=== PATIENT | female | born 1950 | race Caucasian/White ===

== ENCOUNTER 2019-09-24 13:09 | Outpatient (CLI) | payer MEDICARE, BC, SELFPAY ==
[2019-09-24 14:28] LABS: Vitamin D 25 Hydroxy 51.4 ng/mL
== END 2019-09-24 13:10 | disposition home or self-care (01) ==
LOC: ANHLAB 13:11
PROVIDERS: PCP Internal Medicine; Visit Provider Obstetrics & Gynecology Gynecology
DX: E55.9 Vitamin D deficiency, unspecified (principal)
CPT/HCPCS: 36415; 82306

== ENCOUNTER 2020-02-29 12:55 | Emergency (ER) | payer MEDICARE, BC, SELFPAY ==
--- NOTE | ~2020-02-29 | XR_ITS ---
XR forearm RT 2V DATE: 02/29/2020 13:17 INDICATION: Forearm pain following fall today TECHNIQUE: AP and lateral views COMPARISON: None FINDINGS: Diffuse osteopenia. No fracture or dislocation of the forearm. No elbow joint effusion. IMPRESSION: Osteopenia Reviewed, dictated and finalized at location A. IMPRESSION: Osteopenia
[2020-02-29 13:09] VITALS: BP 166/74; PULSE 70; RESP 16; TEMP 36.9; O2SAT 98
--- NOTE | 2020-02-29 13:09 | ED.UPPEXIN ---
HPI - Extremity Injury (Upper) General Chief Complaint: Extremity Injury, Upper Stated Complaint: fell left arm pain Time Seen by Provider: 02/29/20 13:12 Source: patient and RN notes reviewed History of Present Illness HPI narrative: Patient is a 70-year-old female who presents the urgent care with complaints of left lower arm pain due to fall. Patient states that she fell today while trying to clean off some concrete. Patient denies of any loss of consciousness. Reports of a bruise near the elbow but is mainly reporting of pain to the wrist. Patient has not taken anything for pain prior to arrival. States the injury happened at approximately 7 AM today. No other acute complaints or injuries. No acute distress noted. Patient read the plan of care. Related Data Home Medications Medication Instructions Recorded Confirmed aspirin 81 mg tablet,delayed 81 mg PO DAILY 07/14/19 07/21/19 release carvedilol 12.5 mg tablet 12.5 mg PO BID tablet 07/14/19 07/21/19 cranberry 500 mg capsule 500 mg PO DAILY cap 07/14/19 07/21/19 montelukast 10 mg tablet 10 mg PO DAILY 07/14/19 07/21/19 cholecalciferol (vitamin D3) 50 2,000 unit PO DAILY 07/21/19 07/21/19 mcg (2,000 unit) tablet beclomethasone dipropionate [Qvar INHALATION 02/29/20 RediHaler] magnesium oxide 02/29/20 Allergies Allergy/AdvReac Type Severity Reaction Status Date / Time No Known Allergies Allergy Verified 02/17/20 10:05 Review of Systems Review of Systems: Narrative: CONSTITUTIONAL: Denies fever, chills, or sweats. EYES: Denies visual changes, redness, or discharge. ENT: Denies rhinorrhea, congestion, sore throat, or otalgia. CARDIOVASCULAR: Denies chest pain, palpitations, or edema. RESPIRATORY: Denies cough or dyspnea. GASTROINTESTINAL: Denies abdominal pain, nausea, vomiting, or diarrhea. GENITOURINARY: Denies dysuria or hematuria. SKIN: Denies rash or itching. MUSCULOSKELETAL: Reports of left lower arm/wrist pain. NEUROLOGIC: Denies headache, numbness, or weakness. All other systems reviewed are negative, except as documented in HPI. [facility] Social History Social History Smoking status: Never smoker Second hand tobacco smoke exposure: No Alcohol intake: current Drinks per week: 5 Substance use: never Comments At the time of my signature, I reviewed and agree with the nursing past medical, surgical, social, and family history. There is no relevant family history pertinent to the patient complaint. Exam Narrative: Exam Narrative: GENERAL: This is a well-nourished, well-developed patient, in no apparent distress. HEAD: normocephalic, atraumatic. EYES: PERRL. Sclera clear/white. Vision is grossly intact. EARS: External ears normal NOSE: External nose normal with no obvious nasal discharge, nares without redness, no rhinorrhea. THROAT: Mucous membranes moist NECK: Neck supple SKIN: warm, intact with no suspicious lesions or rash, good texture and turgor. NEURO: awake, alert, and oriented to person, place and time. There were no obvious focal neurologic abnormalities. EXTREMITIES: Mild edema noted to dorsal wrist with mild to moderate pain with range of motion activity. No obvious deformity noted. Positive strong right radial pulse with capillary refill less than 2 seconds. Course Vital Signs Vital signs: Vital Signs Temperature 98.4 F 02/29/20 13:09 Pulse Rate 70 02/29/20 13:09 Respiratory Rate 16 02/29/20 13:09 Blood Pressure 166/74 H 02/29/20 13:09 Pulse Oximetry 98 02/29/20 13:09 Temperature 98.4 F 02/29/20 13:09 Pulse Rate 70 02/29/20 13:09 Respiratory Rate 16 02/29/20 13:09 Blood Pressure 166/74 H 02/29/20 13:09 Pulse Oximetry 98 02/29/20 13:09 Reviewed?patient is informed that they may have pre-hypertension or hypertension based on a blood pressure reading in the department. I recommend the patient call the primary care provider listed
--- NOTE | 2020-02-29 13:16 | PC.NURSE ---
in xray at 1311 in br 1316
== END 2020-02-29 13:45 | disposition home or self-care (01) ==
PROVIDERS: Emergency Provider Nurse Practitioner Family; PCP Internal Medicine
DX: M25.531 Pain in right wrist (principal); Z79.82 Long term (current) use of aspirin; E78.00 Pure hypercholesterolemia, unspecified; I10 Essential (primary) hypertension; Z85.43 Personal history of malignant neoplasm of ovary; Z92.21 Personal history of antineoplastic chemotherapy
CPT/HCPCS: 73090; 99213; G0463

== ENCOUNTER 2020-03-01 07:25 | Outpatient (CLI) | payer MEDICARE, BC, SELFPAY ==
--- NOTE | ~2020-03-01 | MM_ITS ---
EXAMINATION: MM screening aishwarya BI w dionne HISTORY: Screening TECHNIQUE: Craniocaudal and mediolateral oblique 3-D tomosynthesis images were obtained and synthetic 2-D images were generated. CAD analysis was submitted and interpreted. COMPARISON: Comparison to multiple prior studies sequentially, with oldest reviewed study dated 12/16. BREAST PARENCHYMAL COMPOSITION: There are scattered areas of fibroglandular density. FINDINGS: There is no evidence of suspicious mass, calcification, or architectural distortion to sugg est malignancy in either breast. There has been no suspicious interval change. IMPRESSION: 1. No mammographic evidence of malignancy. 2. Recommend routine screening mammography in one year. BI-RADS Category 1: Negative Reviewed, dictated and finalized at location A.
--- NOTE | ~2020-03-01 | DEXA_ITS ---
Bone Density Report Name: Gayle Ventura Age: 70 Sex: Female Ethnicity: White Date of : 1950 Indication: postmenopausal; height loss; prior fracture; cancer; hysterectomy; Referring Provider: LITA GAINES Study: Bone densitometry was performed. Exam Date: March 01, 2020 Accession number: [id number] Bone Density: Region BMD T-score Z-score Classification AP Spine (L1-L4) 1.043 0.0 2.1 Normal Femoral Neck (Left) 0.814 -0.3 1.5 Normal Total Hip (Left) 0.946 0.0 1.6 Normal Total Hip Bilateral Avg 0.941 -0.1 1.6 Normal Femoral Neck (Right) 0.761 -0.8 1.1 Normal Total Hip (Right) 0.936 -0.1 1.5 Normal World Health Organization criteria for BMD impression classify patients as: Normal (T-score at or above -1.0), Osteopenia (T-score between -1.0 and -2.5), or Osteoporosis (T-score at or below -2.5). 10-year Fracture Risk: FRAX not reported because: All T-scores for Spine Total, Hip Total, Femoral Neck at or above -1.0 Previous Exams: Region Exam Age BMD T-score BMD Change BMD Change Date g/cm2 vs Baseline vs Previous AP Spine(L1-L4) 03/01/2020 70 1.043 0.0 0.025(2.5%)# 0.033(3.3%)* 02/27/2017 67 1.009 -0.3 -0.008(-0.8%)# -0.032(-3.1%)* 01/05/2015 64 1.042 0.0 0.024(2.4%)# 0.016(1.6%)# 05/05/2012 62 1.025 -0.2 0.008(0.7%)# 0.008(0.7%)# 02/09/2009 58 1.018 -0.3 Total Hip(Left) 03/01/2020 70 0.946 0.0 -0.096(-9.2%)# 0.004(0.5%) 02/27/2017 67 0.941 0.0 -0.100(-9.6%)# -0.012(-1.2%) 01/05/2015 64 0.953 0.1 -0.089(-8.5%)# -0.085(-8.2%)# 05/05/2012 62 1.038 0.8 -0.003(-0.3%)# -0.003(-0.3%)# 02/09/2009 58 1.042 0.8 Total Hip(Right) 03/01/2020 70 0.936 -0.1 -0.046(-4.7%)# -0.026(-2.7%) 02/27/2017 67 0.962 0.2 -0.020(-2.0%)# 0.004(0.4%) 01/05/2015 64 0.958 0.1 -0.024(-2.4%)# -0.027(-2.7%)# 05/05/2012 62 0.985 0.4 0.003(0.3%)# 0.003(0.3%)# 02/09/2009 58 0.982 0.3 *Denotes significance at 95% confidence level, LSC for AP Spine = 0.022 g/cm2, LSC for Total Hip = 0.027 g/cm2 Clinical Information Provided by Patient: Has had a low trauma fracture Has used the following medications: Vitamin D Has the following medical conditions: Cancer, Hysterectomy Patient maximum height was 66 Menopause Age: 40 No regular weight bearing exercise Does not regularly consume dairy products Drinks caffeinated beverages Onset of menses at age 12 Number of children 2
== END 2020-03-01 07:26 | disposition home or self-care (01) ==
LOC: ANHIMG 07:27
PROVIDERS: PCP Internal Medicine; Visit Provider Obstetrics & Gynecology Gynecology
DX: Z12.31 Encounter for screening mammogram for malignant neoplasm of breast (principal); Z78.0 Asymptomatic menopausal state
CPT/HCPCS: 77063; 77067; 77080

== ENCOUNTER 2020-04-02 09:38 | Outpatient (CLI) | payer MEDICARE, BC, SELFPAY ==
[2020-04-05 01:05] LABS: CA-125 5 U/mL (<35)
== END 2020-04-02 09:39 | disposition home or self-care (01) ==
LOC: ANHLAB 09:42
PROVIDERS: PCP Internal Medicine; Visit Provider Obstetrics & Gynecology Gynecology
DX: Z85.43 Personal history of malignant neoplasm of ovary (principal)
CPT/HCPCS: 36415; 86304

== ENCOUNTER 2020-08-03 07:45 | Outpatient (CLI) | payer MEDICARE, BC, SELFPAY ==
--- NOTE | ~2020-08-03 | XR_ITS ---
EXAMINATION: XR hip LT min 2V EXAM DATE: 08/03/2020 08:41 INDICATION: No known recent injury provided at this time. Pain of multiple joints. TECHNIQUE: Left hip frontal, frog leg projections. Comparison is made to prior examination from 2004. FINDINGS: There is mild to moderate left hip primary osteoarthritis. Difficult to appreciate signifi cant interval progression compared to 2004. No evidence of avascular necrosis. There are no acute fra ctures or dislocations identified. There is no subcutaneous gas. The soft tissue is unremarkable. There are no radiopaque foreign bodies. IMPRESSION: Mild to moderate left hip osteoarthritis. Reviewed, dictated and finalized at location D. TECHNICIAN
--- NOTE | ~2020-08-03 | XR_ITS ---
EXAMINATION: XR foot LT 2V, XR ankle LT 2V EXAM DATE: 08/03/2020 08:41 INDICATION: Left foot, ankle pain. TECHNIQUE: Left foot frontal and lateral projections. Left ankle frontal and lateral projections. Th ere are no prior studies for comparison. FINDINGS: Moderate-sized right calcaneal posterior spur, and small inferior spur. There is mild to m oderate polyarticular interphalangeal and midfoot primary osteoarthritis. There are no bony erosions identified. There are no acute fractures or dislocations identified. There is no subcutaneous gas. The soft tissue is unremarkable. There are no radiopaque foreign bodies. The ankle mortise appear s intact. There is sequela from prior lateral malleolar avulsion injury. IMPRESSION: Mild to moderate polyarticular left foot osteoarthritis. Calcaneal spurs. Reviewed, dictated and finalized at location D. PROCESSOR IMPRESSION: Mild to moderate polyarticular left foot osteoarthritis. Calcaneal spurs.
--- NOTE | ~2020-08-03 | XR_ITS ---
EXAMINATION: XR knee LT 2V DATE: 08/03/2020 08:41 INDICATION: Multiple joint pain. TECHNIQUE: 2 views of left knee were obtained. COMPARISON: Left knee radiographs 08/18/2013 FINDINGS: There is varus angulation at the knee. No fracture. There is severe osteoarthritis of later al compartment and mild osteoarthritis of medial and patellofemoral compartments. There is a small kn ee joint effusion. There are loose bodies in the knee joint posteriorly. IMPRESSION: 1. Severe left knee osteoarthritis. 2. Small left knee joint effusion with loose bodies. Reviewed, dictated and finalized at location A. MANAGER
--- NOTE | ~2020-08-03 | XR_ITS ---
EXAMINATION: XR hip RT min 2V EXAM DATE: 08/03/2020 08:41 INDICATION: Multijoint pain. TECHNIQUE: Right hip frontal and frog-leg projections. Correlation is made to contralateral hip same date. FINDINGS: There is mild to moderate right hip primary osteoarthritis. No evidence of avascular necro sis. Mild vascular calcifications. There are no acute fractures identified. IMPRESSION: Mild to moderate right hip osteoarthritis. Reviewed, dictated and finalized at location D. OUTBOARD ENGINE MECHANIC
--- NOTE | ~2020-08-03 | XR_ITS ---
EXAMINATION: XR hand LT 2V DATE: 08/03/2020 08:40 INDICATION: Multiple joint pain. TECHNIQUE: 2 views of left hand were obtained. COMPARISON: None. FINDINGS: Bone alignment is normal. No fracture. There is a 7 mm nonaggressive lytic lesion in scapho id, likely an enchondroma. There is moderate osteoarthritis of triscaphe joint and first carpometacar pal joint. There is mild osteoarthritis of first metacarpophalangeal joint and some of the interphala ngeal joints. There is severe osteoarthritis of first interphalangeal joint, fourth proximal interpha langeal joint, and fifth proximal and distal interphalangeal joints. There is moderate osteoarthritis of second and third distal interphalangeal joints and second proximal interphalangeal joint. IMPRESSION: 1. Polyarticular osteoarthritis. Reviewed, dictated and finalized at location A. CTOR OF DISTANCE LEARNING
--- NOTE | ~2020-08-03 | XR_ITS ---
EXAMINATION: XR ankle RT 2V, XR foot RT 2V EXAM DATE: 08/03/2020 08:41 (accession [id number]), 08/03/2020 08:40 (accession [id number]) INDICATION: Right foot, ankle pain. TECHNIQUE: Right ankle frontal and lateral projections. Right foot frontal and lateral projections. Comparison is made to prior examination from 01/17/2009. FINDINGS: There is a healed distal fibular metaphyseal fracture. Mild right ankle osteoarthritis. Mo derate-sized posterior calcaneal spur. There is mild to moderate polyarticular interphalangeal, mild midfoot primary osteoarthritis. There are no bony erosions identified. There are no acute fractures or dislocations identified. There is no subcutaneous gas. The soft tissue is unremarkable. There are no radiopaque foreign bodies. IMPRESSION: Mild to moderate polyarticular right foot interphalangeal, mild mid foot and ankle osteoa rthritis. Reviewed, dictated and finalized at location D. EMIC SUPPORT ASSISTANT IMPRESSION: Mild to moderate polyarticular right foot interphalangeal, mild mid foot and ankle osteoarthritis.
--- NOTE | ~2020-08-03 | XR_ITS ---
EXAMINATION: XR wrist RT 2V DATE: 08/03/2020 08:40 INDICATION: Multiple joint pain. TECHNIQUE: 2 views of right wrist were obtained. COMPARISON: None. FINDINGS: Bone alignment is normal. No fracture. There is mild osteoarthritis of triscaphe joint and first carpometacarpal joint. IMPRESSION: 1. Mild polyarticular osteoarthritis. Reviewed, dictated and finalized at location A. ES OR MULES TEAMSTER
--- NOTE | ~2020-08-03 | XR_ITS ---
EXAMINATION: XR wrist LT 2V DATE: 08/03/2020 08:40 INDICATION: Multiple joint pain. TECHNIQUE: 2 views of left wrist were obtained. COMPARISON: None. FINDINGS: Bone alignment is normal. No fracture. There is a 7 mm nonaggressive lytic lesion in scapho id, likely an enchondroma. There is moderate osteoarthritis of triscaphe joint and first carpometacar pal joint. IMPRESSION: 1. Polyarticular osteoarthritis. Reviewed, dictated and finalized at location A. OND SIZER
--- NOTE | ~2020-08-03 | XR_ITS ---
EXAMINATION: XR hand RT 2V DATE: 08/03/2020 08:40 INDICATION: Multiple joint pain. TECHNIQUE: 2 views of right hand were obtained. COMPARISON: None. FINDINGS: Bone alignment is normal. No fracture. There is mild osteoarthritis of triscaphe joint and first carpometacarpal joint and second and third metacarpophalangeal joints. There is severe osteoart hritis of second and fifth distal interphalangeal joints and fourth proximal interphalangeal joint an d mild to moderate osteoarthritis of the other interphalangeal joints. IMPRESSION: 1. Polyarticular osteoarthritis. Reviewed, dictated and finalized at location A. PICKER
--- NOTE | ~2020-08-03 | XR_ITS ---
EXAMINATION: XR knee RT 2V DATE: 08/03/2020 08:41 INDICATION: Multiple joint pain. TECHNIQUE: 2 views of right knee were obtained. COMPARISON: Right knee radiographs 08/18/2013 FINDINGS: There is valgus angulation at the knee. No fracture. There is severe osteoarthritis of late ral compartment, mild osteoarthritis of medial compartment, and moderate osteoarthritis of patellofem oral compartment. No knee joint effusion. A fragment of ossification posterior to the knee may be a l oose body in a Guzman's cyst. IMPRESSION: 1. Severe right knee osteoarthritis. Reviewed, dictated and finalized at location A. TRONIC LAB TECHNICIAN
[2020-08-03 15:10] LABS: Basophils Percent Auto 0.9 % (0.2-1.2); Eosinophils Absolute Auto 0.3 K/mm3 (0-0.3); Eosinophils Percent Auto 5.7 % (0-4.4); Hematocrit 39.4 % (37.0-47.0); Hemoglobin 13.2 g/dL (12.0-15.0); Immature Granulocyte Absolute 0.01 K/mm3 (0.00-0.031); Immature Granulocyte Percent A 0.2 % (0-0.5); Lymphocytes Percent Auto 24.1 % (18.3-44.2); Mean Corpuscular HGB Conc 33.5 g/dl (32-36); Mean Corpuscular Hemoglobin 31.8 pg (26-34); Mean Corpuscular Volume 94.9 fl (80-100); Mean Platelet Volume 11.1 fl (7.4-10.4); Monocytes Absolute Auto 0.9 K/mm3 (0.1-0.6); Neutrophils Absolute Auto 2.2 K/mm3 (1.3-6.7); Neutrophils Percent Auto 49.1 % (45.5-73.1); Platelet Count Result 206 k/mm3 (150-375); Red Blood Count 4.15 M/mm3 (4.2-5.4); Red Cell Distribution Width 11.9 % (11.5-14.5); White Blood Count 4.6 K/mm3 (4.5-10.0)
[2020-08-03 15:17] LABS: Alanine Aminotransferase 17 U/L (4-35); Albumin Level 3.8 g/dL (3.5-5.1); Alkaline Phosphatase 53 U/L (38-126); Anion Gap 5 mmol/L (8-16); Aspartate Amino Transferase 25 U/L (14-36); Blood Urea Nitrogen 13 mg/dL (7-17); CRP 0.7 mg/dL (<1.0); Calcium 9.2 mg/dL (8.4-10.2); Carbon Dioxide 31 mmol/L (22-30); Chloride 103 mmol/L (98-107); Cholesterol 153 mg/dL (0-200); Estimated Glomerular Filt Rate > 60; Glucose 131 mg/dL (65-105); HDL Direct 72 mg/dL; Magnesium 1.7 mg/dL (1.6-2.3); Rheumatoid Factor < 8.6 IU/ML (<12); Sodium 139 mmol/L (137-145); Triglycerides 80 mg/dL (<150); Uric Acid 4.5 mg/dL (2.5-7.5)
[2020-08-03 15:18] LABS: Iron 85 ug/dL (37-170)
[2020-08-03 15:26] LABS: LDL Cholesterol Direct 74 mg/dL
[2020-08-03 15:29] LABS: Percent Iron Saturation 27 % (20-50)
[2020-08-03 15:57] LABS: Erythrocyte Sedimentation Rate 10 mm/hr (0-20)
[2020-08-03 16:00] LABS: Free T4 Free Thyroxine 1.19 ng/mL (0.78-2.19)
[2020-08-03 16:20] LABS: Folic Acid 16.8 ng/mL (2.76->20)
[2020-08-03 17:08] LABS: Vitamin D 25 Hydroxy 45.6 ng/mL
[2020-08-07 23:40] LABS: Anti Cyclic Citrullinated Pept <16 Units (<20)
[2020-08-23 13:05] LABS: Reference Lab Test Name 14-3-3 eta Protein
== END 2020-08-03 07:46 | disposition home or self-care (01) ==
PROVIDERS: PCP Internal Medicine; Referring Provider Internal Medicine Rheumatology; Visit Provider Internal Medicine Cardiovascular Disease
DX: Z13.1 Encounter for screening for diabetes mellitus (principal); R73.09 Other abnormal glucose; E55.9 Vitamin D deficiency, unspecified; E53.8 Deficiency of other specified B group vitamins; D50.9 Iron deficiency anemia, unspecified; Z51.81 Encounter for therapeutic drug level monitoring; Z79.899 Other long term (current) drug therapy; M16.0 Bilateral primary osteoarthritis of hip; M19.032 Primary osteoarthritis, left wrist; M19.031 Primary osteoarthritis, right wrist; M85.872 Other specified disorders of bone density and structure, left ankle and foot; M85.871 Other specified disorders of bone density and structure, right ankle and foot; M19.042 Primary osteoarthritis, left hand; M19.041 Primary osteoarthritis, right hand; M17.0 Bilateral primary osteoarthritis of knee
CPT/HCPCS: 36415; 73100; 73120; 73502; 73560; 73600; 73620; 80053; 80061; 82306; 82607; 82728; 82746; 83036; 83520; 83540; 83550; 83735; 84439; 84443; 84550; 85025; 85652; 86038; 86140; 86200; 86430

== ENCOUNTER 2020-11-21 08:39 | Outpatient (CLI) | payer MEDICARE, BC, SELFPAY ==
--- NOTE | 2020-11-21 08:49 | ECHO_ITS ---
Patient Info Name: Gayle Ventura Age: 70 years : 1950 Gender: Female Ht: 65 in Wt: 200 lbs BSA: 2.07 m2 HR: 61 bpm BP: 165 / 86 mmHg Heart Rhythm: Sinus Rhythm Technical Quality: Good Exam Date: 11/21/2020 8:55 AM Exam Location: [facility] Patient Status: Outpatient Admit Date: 11/21/2020 Staff Ordering Physician: Tay Enamorado MD Entry Level: Kerline Castaneda RDCS Attending Provider: Tay Enamorado MD Referring Physician: Fei SHAFER; Exam Type: CA echo doppler color flow Study Info Indications - ABN EKG UNSPECIFIED RBBB Complete two-dimensional, color flow and Doppler transthoracic echocardiogram is performed. Summary 1. Complete two-dimensional, color flow and Doppler transthoracic echocardiogram is performed. 2. Left ventricular chamber dimension is normal. 3. Left ventricular systolic function is normal, estimated at 60-65%. 4. The left ventricular diastolic function is grade II diastolic dysfunction. 5. E/e' 12 is mildly elevated. 6. Global longitudinal strain is normal at -18.6%. 7. Left atrial chamber dimension is moderately enlarged. 8. Right atrial chamber dimension is mildly enlarged. 9. There is trace mitral valve regurgitation. 10. There is mild tricuspid valve regurgitation. 11. No pulmonary hypertension, estimated pulmonary arterial systolic pressure is 27 mmHg. 12. There is trace pulmonic regurgitation. Left Ventricle E/e' 12 is mildly elevated. Global longitudinal strain is normal at -18.6%. Left ventricular chamber dimension is normal. Left ventricular systolic function is normal, estimated at 60-65%. The left ventricular diastolic function is grade II diastolic dysfunction. Right Ventricle Right ventricular systolic function is normal and with normal TAPSE 2.5 cm.. Right ventricular chamber dimension is normal. Left Atria Left atrial chamber dimension is moderately enlarged. Right Atria Right atrial chamber dimension is mildly enlarged. Aortic Valve The aortic valve is trileaflet. There is no aortic valve stenosis. There is no aortic valve regurgitation. Pulmonic Valve There is trace pulmonic regurgitation. Mitral Valve There is no mitral valve stenosis. There is trace mitral valve regurgitation. Tricuspid Valve There is mild tricuspid valve regurgitation. No pulmonary hypertension, estimated pulmonary arterial systolic pressure is 27 mmHg. Pericardium/Pleural There is no pericardial effusion. Inferior Vena Cava Normal inferior vena cava with >50% collapse upon inspiration consistent with normal right atrial pressure, 5 mmHg. Aorta The aortic root size at the sinus of Valsalva is normal. Left Ventricular Outflow Tract Name Value Normal LVOT 2D LVOT Diameter 2.0 cm LVOT Doppler LVOT Peak Gradient 3 mmHg LVOT Mean Gradient 2 mmHg LVOT VTI 22 cm LVOT VTI/AV VTI Ratio 0.9 LVOT Stroke Volume 68 ml LVOT CO 12.5 l/min LVOT C
== END 2020-11-21 08:40 | disposition home or self-care (01) ==
PROVIDERS: PCP Internal Medicine; Visit Provider Internal Medicine
DX: I45.10 Unspecified right bundle-branch block (principal); I36.1 Nonrheumatic tricuspid (valve) insufficiency
CPT/HCPCS: 93306

== ENCOUNTER 2020-12-28 11:18 | Outpatient (CLI) | payer MEDICARE, BC, SELFPAY ==
[2020-12-28 12:21] LABS: Uric Acid 3.6 mg/dL (2.5-7.5)
== END 2020-12-28 11:19 | disposition home or self-care (01) ==
PROVIDERS: PCP Internal Medicine; Visit Provider Nurse Practitioner Adult Health
DX: M79.641 Pain in right hand (principal)
CPT/HCPCS: 36415; 84550

== ENCOUNTER 2021-02-15 07:50 | Outpatient (CLI) | payer MEDICARE, BC, SELFPAY ==
[2021-02-15 08:32] LABS: Basophils Percent Auto 0.4 % (0.2-1.2); Eosinophils Absolute Auto 0.1 K/mm3 (0-0.3); Eosinophils Percent Auto 2.2 % (0-4.4); Hematocrit 40.8 % (37.0-47.0); Hemoglobin 13.4 g/dL (12.0-15.0); Immature Granulocyte Absolute 0.01 K/mm3 (0.00-0.031); Immature Granulocyte Percent A 0.2 % (0-0.5); Lymphocytes Absolute Auto 1.25 K/mm3 (0.9-3.2); Lymphocytes Percent Auto 27.4 % (18.3-44.2); Mean Corpuscular HGB Conc 32.8 g/dl (32-36); Mean Corpuscular Hemoglobin 32.2 pg (26-34); Mean Corpuscular Volume 98.1 fl (80-100); Mean Platelet Volume 9.9 fl (7.4-10.4); Monocytes Absolute Auto 0.7 K/mm3 (0.1-0.6); Monocytes Percent Auto 15.8 % (2.6-8.5); Neutrophils Absolute Auto 2.5 K/mm3 (1.3-6.7); Platelet Count Result 191 k/mm3 (150-375); Red Blood Count 4.16 M/mm3 (4.2-5.4); Red Cell Distribution Width 12.1 % (11.5-14.5); White Blood Count 4.6 K/mm3 (4.5-10.0)
[2021-02-15 08:53] LABS: Alanine Aminotransferase 19 U/L (4-35); Albumin Level 3.8 g/dL (3.5-5.1); Alkaline Phosphatase 49 U/L (38-126); Anion Gap 6 mmol/L (8-16); Aspartate Amino Transferase 25 U/L (14-36); Bilirubin,Total 1.1 mg/dL (0.2-1.3); Blood Urea Nitrogen 12 mg/dL (7-17); Calcium 9.4 mg/dL (8.4-10.2); Carbon Dioxide 31 mmol/L (22-30); Chloride 102 mmol/L (98-107); Cholesterol 173 mg/dL (0-200); Estimated Glomerular Filt Rate > 60; Glucose 109 mg/dL (65-110); HDL Direct 77 mg/dL; Potassium 3.9 mmol/L (3.4-5.0); Sodium 139 mmol/L (137-145); Triglycerides 82 mg/dL (<150)
[2021-02-15 09:04] LABS: Hemoglobin A1C 5.9 % (<5.7); LDL Cholesterol Direct 74 mg/dL
[2021-02-15 11:37] LABS: Vitamin D 25 Hydroxy 37.8 ng/mL
== END 2021-02-15 07:51 | disposition home or self-care (01) ==
PROVIDERS: PCP Internal Medicine; Referring Provider Obstetrics & Gynecology Gynecology; Visit Provider Internal Medicine
DX: E78.5 Hyperlipidemia, unspecified (principal); Z51.81 Encounter for therapeutic drug level monitoring; Z79.899 Other long term (current) drug therapy; R73.9 Hyperglycemia, unspecified; E55.9 Vitamin D deficiency, unspecified; I10 Essential (primary) hypertension
CPT/HCPCS: 36415; 80053; 80061; 82306; 83036; 84439; 84443; 85025

== ENCOUNTER 2021-03-04 07:23 | Outpatient (CLI) | payer MEDICARE, BC, SELFPAY ==
--- NOTE | ~2021-03-04 | MM_ITS ---
EXAMINATION: MM screening aishwarya BI w dionne HISTORY: Screening mammogram TECHNIQUE: Craniocaudal and mediolateral oblique 3-D tomosynthesis images were obtained and synthetic 2-D images were generated. CAD analysis was submitted and interpreted. COMPARISON: 03/01/2020, 02/23/2019, 02/16/2018 BREAST PARENCHYMAL COMPOSITION: There are scattered areas of fibroglandular density. FINDINGS: Scattered benign-appearing calcifications are present. There is no evidence of suspicious m ass, calcification, or architectural distortion to suggest malignancy in either breast. There has bee n no suspicious interval change. IMPRESSION: 1. No mammographic evidence of malignancy. 2. Recommend routine screening mammography in one year. BI-RADS Category 2: Benign finding(s). Reviewed, dictated and finalized at location A.
== END 2021-03-04 07:24 | disposition home or self-care (01) ==
PROVIDERS: PCP Internal Medicine; Visit Provider Obstetrics & Gynecology Gynecology
DX: Z12.31 Encounter for screening mammogram for malignant neoplasm of breast (principal)
CPT/HCPCS: 77063; 77067

== ENCOUNTER 2021-03-14 08:25 | Outpatient (CLI) | payer MEDICARE, BC, SELFPAY ==
--- NOTE | 2021-04-09 06:53 | WPDSLEEPSTUD ---
Sleep Study Date of Study: 03/14/21 Ordering Provider: Tay Enamorado MD Interpreting Physician: Ashleigh Langley MD Sleep Study Type: Polysomnogram Height: 1.68 m Weight: 92.533 kg Body Mass Index: 32.9 Neck Circumference (inches): 15 [place]: 3 Reason for Sleep Study Hypersomnia Sleep History Gayle Ventura is a 71 year old woman with complaints of daytime fatigue and exhaustion. Her sleep is sometimes interrupted at night if she wakes and starts thinking about her activities the next day. She rarely has trouble sleeping with a cold. She does not wake up gasping for breath at night and does not have breathing problems reported to her by others. She does not sweat excessively at night or notices her heart pounding or beating irregularly at night. She occasionally falls asleep during the day, never falls asleep involuntarily or while driving. She does not have loss of muscle tone with strong emotion. She does not have daytime difficulties due to excessive sleepiness, she is retired. She does not feel paralyzed on waking or falling asleep. She does not have vivid dreamlike scenes upon awakening or falling asleep. She does not feel afraid to go to sleep. She does not have nightmares. She occasionally remembers her dreams. She occasionally has racing thoughts and feelings of sadness and depression. She rarely feels anxious. She does not have muscular tension or notices parts of her body jerking. She does not kick at night. She rarely has crawling and aching feelings in her legs. She rarely has any kind of leg pain at night. She does not have morning jaw pain. She does not grind her teeth during sleep. She occasionally is bothered by pain during the day. She rarely is awakened by pain at night. She frequently wakes up feeling stiff in the morning due to arthritis. She does not wake up with sore achy muscles or pain in the neck and spine. Normal bedtime is 9:00 p.m. falling asleep within 15 minutes typically waking 1-2 times at night to urinate, and is able to return to sleep within 5-10 minutes. She wakes at 6:15 a.m.. On the weekends her schedule is similar. She sometimes takes naps in the afternoon or evening. A short nap may be refreshing. She consistently feels good upon waking. She feels better in the morning compared other times a day. Habits: Never smoked tobacco. Caffeine 2-3 cups in the morning. Alcohol 1-2 per week. No recreational drugs. [facility] Past Medical History Medical History Acute low back pain with sciatica AK (actinic keratosis) BMI 33.0-33.9,adult BMI 34.0-34.9,adult Colon cancer screening Diastolic dysfunction DJD (degenerative joint disease) of knee MOORE (dyspnea on exertion) Dry mouth Encounter for routine adult health examination without abnormal findings Encounter to establish care Essential hypertension Family history of coronary artery disease Fatty liver Follow up Follow up Hypersomnia Mixed hyperlipidemia Myalgia On fci drug therapy Pre-diabetes RBBB (right bundle branch block) Surgical History Surgical History History of appendectomy History of left knee surgery History of right knee surgery History of total hysterectomy Family History Family History Father Acute myocardial infarction Mother Family history of cardiovascular disease Family history of arthritis Family history of heart disease in male family member before age 55 Other Family history of malignant neoplasm Hypertension Social History Social History Smoking status: Never smoker Second hand tobacco smoke exposure: No Alcohol intake: current Drinks per week: 5 Alcohol use details: WITH COMPANY Substance use: never Medications Home Medications Medication
[2021-04-09 07:18] VITALS: BMI 32.9
== END 2021-03-15 05:45 | disposition home or self-care (01) ==
LOC: ANHCSM 08:29
PROVIDERS: PCP Internal Medicine; Visit Provider Internal Medicine
DX: G47.10 Hypersomnia, unspecified (principal); G47.39 Other sleep apnea; G25.81 Restless legs syndrome
CPT/HCPCS: 95810

== ENCOUNTER 2021-04-02 12:05 | Outpatient (CLI) | payer MEDICARE, BC, SELFPAY ==
[2021-04-04 19:11] LABS: CA-125 6 U/mL (<35)
== END 2021-04-02 12:06 | disposition home or self-care (01) ==
PROVIDERS: PCP Internal Medicine; Visit Provider Obstetrics & Gynecology Gynecology
DX: C56.9 Malignant neoplasm of unspecified ovary (principal)
CPT/HCPCS: 36415; 86304

== ENCOUNTER 2021-04-10 13:46 | Outpatient (CLI) | payer MEDICARE, BC, SELFPAY ==
[2021-04-10 16:07] LABS: Iron 85 ug/dL (37-170)
[2021-04-10 16:16] LABS: Percent Iron Saturation 28 % (20-50)
== END 2021-04-10 13:47 | disposition home or self-care (01) ==
PROVIDERS: PCP Internal Medicine; Visit Provider Internal Medicine
DX: G25.81 Restless legs syndrome (principal); E61.1 Iron deficiency
CPT/HCPCS: 36415; 82728; 83540; 83550

== ENCOUNTER 2021-07-25 07:50 | Outpatient (CLI) | payer MEDICARE, BC, SELFPAY ==
[2021-07-25 19:11] LABS: Basophils Percent Auto 0.8 % (0.2-1.2); Eosinophils Absolute Auto 0.2 K/mm3 (0-0.3); Eosinophils Percent Auto 4.8 % (0-4.4); Hematocrit 43.8 % (37.0-47.0); Hemoglobin 14.5 g/dL (12.0-15.0); Lymphocytes Absolute Auto 1.14 K/mm3 (0.9-3.2); Lymphocytes Percent Auto 28.6 % (18.3-44.2); Mean Corpuscular HGB Conc 33.1 g/dl (32-36); Mean Corpuscular Volume 96.7 fl (80-100); Mean Platelet Volume 11.2 fl (7.4-10.4); Monocytes Absolute Auto 0.7 K/mm3 (0.1-0.6); Monocytes Percent Auto 16.3 % (2.6-8.5); Neutrophils Percent Auto 49.5 % (45.5-73.1); Platelet Count Result 181 k/mm3 (150-375); Red Blood Count 4.53 M/mm3 (4.2-5.4); Red Cell Distribution Width 11.9 % (11.5-14.5)
[2021-07-25 19:43] LABS: Alanine Aminotransferase 20 U/L (4-35); Alkaline Phosphatase 60 U/L (38-126); Anion Gap 7 mmol/L (8-16); Aspartate Amino Transferase 28 U/L (14-36); Bilirubin,Total 1.4 mg/dL (0.2-1.3); Blood Urea Nitrogen 13 mg/dL (7-17); Calcium 9.5 mg/dL (8.4-10.2); Carbon Dioxide 28 mmol/L (22-30); Chloride 102 mmol/L (98-107); Cholesterol 175 mg/dL (0-200); Estimated Glomerular Filt Rate > 60; Glucose 133 mg/dL (65-110); HDL Direct 72 mg/dL; Sodium 137 mmol/L (137-145); Triglycerides 89 mg/dL (<150)
[2021-07-25 19:54] LABS: LDL Cholesterol Direct 91 mg/dL
[2021-07-25 19:59] LABS: Free T4 Free Thyroxine 1.19 ng/mL (0.78-2.19)
[2021-07-25 21:58] LABS: Hemoglobin A1C 6.1 % (<5.7)
[2021-07-30 02:57] LABS: Insulin Level Total 7.1 uIU/mL (<=19.6)
== END 2021-07-25 07:51 | disposition home or self-care (01) ==
PROVIDERS: PCP Internal Medicine; Visit Provider Internal Medicine
DX: E78.5 Hyperlipidemia, unspecified (principal); G47.10 Hypersomnia, unspecified; R73.03 Prediabetes; E78.2 Mixed hyperlipidemia; I10 Essential (primary) hypertension; Z51.81 Encounter for therapeutic drug level monitoring; Z79.899 Other long term (current) drug therapy
CPT/HCPCS: 36415; 80053; 80061; 83036; 83525; 84439; 84443; 85025

== ENCOUNTER 2021-12-18 07:16 | Outpatient (CLI) | payer MEDICARE, BC, SELFPAY ==
[2021-12-18 07:52] LABS: Alanine Aminotransferase 16 U/L (6-35); Albumin Level 3.8 g/dL (3.5-5.1); Alkaline Phosphatase 52 U/L (38-126); Anion Gap 4 mmol/L (8-16); Aspartate Amino Transferase 26 U/L (14-36); Bilirubin,Total 1.2 mg/dL (0.2-1.3); Blood Urea Nitrogen 12 mg/dL (7-17); Calcium 8.7 mg/dL (8.4-10.2); Carbon Dioxide 28 mmol/L (22-30); Chloride 105 mmol/L (98-107); Cholesterol 156 mg/dL (0-200); Estimated Glomerular Filt Rate > 60; Glucose 126 mg/dL (65-110); HDL Direct 68 mg/dL; Potassium 3.7 mmol/L (3.4-5.0); Sodium 137 mmol/L (137-145); Triglycerides 75 mg/dL (<150)
[2021-12-18 08:03] LABS: LDL Cholesterol Direct 57 mg/dL
[2021-12-18 09:04] LABS: Vitamin D 25 Hydroxy 48.2 ng/mL
[2021-12-18 09:32] LABS: Hemoglobin A1C 5.7 % (<5.7)
== END 2021-12-18 07:17 | disposition home or self-care (01) ==
LOC: ANHLAB 07:19
PROVIDERS: PCP Internal Medicine; Visit Provider Internal Medicine
DX: E78.2 Mixed hyperlipidemia (principal); I10 Essential (primary) hypertension; R73.9 Hyperglycemia, unspecified; R73.03 Prediabetes; E55.9 Vitamin D deficiency, unspecified
CPT/HCPCS: 36415; 80053; 80061; 82306; 83036

== ENCOUNTER 2022-01-16 09:56 | Outpatient (CLI) | payer MEDICARE, BC, SELFPAY ==
--- NOTE | ~2022-01-16 | XR_ITS ---
XR elbow LT 2V DATE: 01/16/2022 10:09 INDICATION: Left elbow pain is posterior swelling TECHNIQUE: AP and lateral views COMPARISON: None FINDINGS: There is posterior soft tissue swelling consistent with olecranon bursitis. Osteopenia. No fracture or dislocation or joint effusion. No periosteal reaction or bone destruction. IMPRESSION: Olecranon bursitis Reviewed, dictated and finalized at location B. IMPRESSION: Olecranon bursitis
== END 2022-01-16 09:57 | disposition home or self-care (01) ==
PROVIDERS: PCP Internal Medicine; Visit Provider Internal Medicine
DX: S59.909A Unspecified injury of unspecified elbow, initial encounter (principal); X58.XXXA Exposure to other specified factors, initial encounter; M70.22 Olecranon bursitis, left elbow
CPT/HCPCS: 73070

== ENCOUNTER 2022-03-06 07:16 | Outpatient (CLI) | payer MEDICARE, BC, SELFPAY ==
--- NOTE | ~2022-03-06 | MM_ITS ---
EXAMINATION: MM screening aishwarya BI w dionne HISTORY: Screening mammogram TECHNIQUE: Craniocaudal and mediolateral oblique 3-D tomosynthesis images were obtained and synthetic 2-D images were generated. CAD analysis was submitted and interpreted. COMPARISON: 03/04/2021, 03/01/2020, 02/23/2019 bilateral screening mammogram examinations BREAST PARENCHYMAL COMPOSITION: There are scattered areas of fibroglandular density. FINDINGS: Scattered bilateral benign calcifications. There is no evidence of suspicious mass, calcifi cation, or architectural distortion to suggest malignancy in either breast. There has been no suspici ous interval change. IMPRESSION: 1. No mammographic evidence of malignancy. 2. Recommend routine screening mammography in one year. BI-RADS Category 2: Benign finding(s). Reviewed, dictated and finalized at location A.
== END 2022-03-06 07:17 | disposition home or self-care (01) ==
LOC: ANHIMG 07:19
PROVIDERS: PCP Internal Medicine; Visit Provider Obstetrics & Gynecology Gynecology
DX: Z12.31 Encounter for screening mammogram for malignant neoplasm of breast (principal)
CPT/HCPCS: 77063; 77067

== ENCOUNTER 2022-04-16 12:08 | Outpatient (CLI) | payer MEDICARE, BC, SELFPAY ==
[2022-04-19 02:52] LABS: CA-125 5 U/mL (<35)
== END 2022-04-16 12:09 | disposition home or self-care (01) ==
PROVIDERS: PCP Internal Medicine; Visit Provider Obstetrics & Gynecology Gynecology
DX: Z85.43 Personal history of malignant neoplasm of ovary (principal)
CPT/HCPCS: 36415; 86304

== ENCOUNTER 2022-06-04 14:20 | Outpatient (CLI) | payer MEDICARE, BC, SELFPAY ==
[2022-06-04 15:14] LABS: Basophils Percent Auto 0.5 % (0.2-1.2); Eosinophils Absolute Auto 0.1 K/mm3 (0-0.3); Eosinophils Percent Auto 2.2 % (0-4.4); Hemoglobin 12.6 g/dL (12.0-15.0); Immature Granulocyte Absolute 0.02 K/mm3 (0.00-0.031); Immature Granulocyte Percent A 0.3 % (0-0.5); Lymphocytes Absolute Auto 2.17 K/mm3 (0.9-3.2); Lymphocytes Percent Auto 34.6 % (18.3-44.2); Mean Corpuscular HGB Conc 33.2 g/dl (32-36); Mean Corpuscular Hemoglobin 32.5 pg (26-34); Mean Corpuscular Volume 97.9 fl (80-100); Mean Platelet Volume 10.4 fl (7.4-10.4); Monocytes Percent Auto 15.4 % (2.6-8.5); Platelet Count Result 227 k/mm3 (150-375); Red Blood Count 3.88 M/mm3 (4.2-5.4); Red Cell Distribution Width 12.1 % (11.5-14.5); White Blood Count 6.3 K/mm3 (4.5-10.0)
[2022-06-04 15:29] LABS: Alanine Aminotransferase 23 U/L (6-35); Alkaline Phosphatase 51 U/L (38-126); Anion Gap 5 mmol/L (8-16); Aspartate Amino Transferase 29 U/L (14-36); Bilirubin,Total 1.2 mg/dL (0.2-1.3); Blood Urea Nitrogen 14 mg/dL (7-17); Calcium 8.9 mg/dL (8.4-10.2); Carbon Dioxide 32 mmol/L (22-30); Chloride 99 mmol/L (98-107); Cholesterol 160 mg/dL (0-200); Estimated Glomerular Filt Rate > 60; Glucose 116 mg/dL (65-110); HDL Direct 77 mg/dL; Sodium 136 mmol/L (137-145); Triglycerides 112 mg/dL (<150)
[2022-06-04 15:40] LABS: LDL Cholesterol Direct 60 mg/dL
[2022-06-04 15:47] LABS: Vitamin D 25 Hydroxy 50.2 ng/mL
[2022-06-04 15:52] LABS: Hemoglobin A1C 5.7 % (<5.7)
== END 2022-06-04 14:21 | disposition home or self-care (01) ==
PROVIDERS: PCP Internal Medicine; Visit Provider Internal Medicine
DX: R73.03 Prediabetes (principal); E55.9 Vitamin D deficiency, unspecified; I10 Essential (primary) hypertension; E78.2 Mixed hyperlipidemia
CPT/HCPCS: 36415; 80053; 80061; 82306; 83036; 85025

== ENCOUNTER 2022-08-06 06:35 | Outpatient (CLI) | payer MEDICARE, BC, SELFPAY ==
[2022-08-06 07:22] LABS: Anion Gap -2 mmol/L (8-16); Blood Urea Nitrogen 19 mg/dL (7-17); Calcium 8.7 mg/dL (8.4-10.2); Carbon Dioxide 34 mmol/L (22-30); Chloride 102 mmol/L (98-107); Estimated Glomerular Filt Rate > 60; Glucose 128 mg/dL (65-110); Magnesium 1.9 mg/dL (1.6-2.3); Potassium 3.9 mmol/L (3.4-5.0); Sodium 134 mmol/L (137-145)
== END 2022-08-06 06:36 | disposition home or self-care (01) ==
PROVIDERS: PCP Internal Medicine; Visit Provider Internal Medicine Cardiovascular Disease
DX: I10 Essential (primary) hypertension (principal)
CPT/HCPCS: 36415; 80048; 83735

== ENCOUNTER 2022-10-11 07:02 | Outpatient (CLI) | payer MEDICARE, BC, SELFPAY ==
[2022-10-11 07:39] LABS: Alanine Aminotransferase 22 U/L (6-35); Albumin Level 4.1 g/dL (3.5-5.1); Alkaline Phosphatase 55 U/L (38-126); Anion Gap 5 mmol/L (8-16); Aspartate Amino Transferase 28 U/L (14-36); Bilirubin,Total 1.6 mg/dL (0.2-1.3); Blood Urea Nitrogen 18 mg/dL (7-17); Calcium 8.9 mg/dL (8.4-10.2); Carbon Dioxide 32 mmol/L (22-30); Chloride 102 mmol/L (98-107); Cholesterol 165 mg/dL (0-200); Estimated Glomerular Filt Rate > 60; Glucose 126 mg/dL (65-110); HDL Direct 74 mg/dL; Potassium 3.7 mmol/L (3.4-5.0); Sodium 139 mmol/L (137-145); Triglycerides 67 mg/dL (<150)
[2022-10-11 07:49] LABS: LDL Cholesterol Direct 73 mg/dL
[2022-10-11 08:14] LABS: Hemoglobin A1C 5.7 % (<5.7)
[2022-10-11 15:54] LABS: Free T4 Free Thyroxine 1.25 ng/mL (0.78-2.19)
== END 2022-10-11 07:03 | disposition home or self-care (01) ==
PROVIDERS: PCP Internal Medicine; Visit Provider Internal Medicine
DX: I10 Essential (primary) hypertension (principal); Z13.29 Encounter for screening for other suspected endocrine disorder; Z79.899 Other long term (current) drug therapy; R73.03 Prediabetes; E78.2 Mixed hyperlipidemia
CPT/HCPCS: 36415; 80053; 80061; 83036; 84439; 84443

== ENCOUNTER 2022-10-21 08:24 | Outpatient (CLI) | payer MEDICARE, BC, SELFPAY ==
--- NOTE | ~2022-10-21 | XR_ITS ---
EXAMINATION: XR ankle LT min 3V DATE: 10/21/2022 08:51 INDICATION: Left foot injury. TECHNIQUE: 4 views of left ankle were obtained. COMPARISON: Left ankle radiographs 08/03/20 FINDINGS: There is heterotopic ossification dorsal to navicular and distal talus. Joint spaces are no rmal. There is enthesophytes at the posterior and plantar aspects of calcaneal tuberosity. There is a nkle soft tissue swelling. IMPRESSION: 1. Heterotopic calcification dorsal to navicular and distal talus, new from 08/03/2020, which may be a cute avulsion fractures or findings from old injury. Reviewed, dictated and finalized at location A. IMPRESSION: 1. Heterotopic calcification dorsal to navicular and distal talus, new from 07/20, which may be acute avulsion fractures or findings from old injury.
--- NOTE | ~2022-10-21 | XR_ITS ---
EXAMINATION: XR foot LT min 3V DATE: 10/21/2022 08:51 INDICATION: Left foot injury. TECHNIQUE: 4 views of left foot were obtained. COMPARISON: Left foot radiographs 08/03/2020 FINDINGS: There are changes of resection of head of fifth proximal phalanx. There is heterotopic ossi fication dorsal to navicular and distal talus. There is mild osteoarthritis of first and fifth metata rsophalangeal joints and some of the interphalangeal joints and midfoot joints. There are enthesophyt es at the posterior and plantar aspects of calcaneal tuberosity. There is dorsal foot soft tissue swe lling. IMPRESSION: 1. Heterotopic ossification dorsal to navicular and distal talus, new from 08/03/2020, which may be ac [place] avulsion fractures or findings from old injury. 2. Mild polyarticular osteoarthritis. Reviewed, dictated and finalized at location A. IMPRESSION: 1. Heterotopic ossification dorsal to navicular and distal talus, new from 08/03, which may be acute avulsion fractures or findings from old injury. 2. Mild polyarticular osteoarthritis.
== END 2022-10-21 08:25 | disposition home or self-care (01) ==
PROVIDERS: PCP Internal Medicine; Visit Provider Internal Medicine
DX: S99.922A Unspecified injury of left foot, initial encounter (principal); M15.9 Polyosteoarthritis, unspecified
CPT/HCPCS: 73610; 73630

== ENCOUNTER 2023-02-19 06:58 | Outpatient (CLI) | payer MEDICARE, BC, SELFPAY ==
[2023-02-19 07:44] LABS: Alanine Aminotransferase 27 U/L (6-35); Albumin Level 3.8 g/dL (3.5-5.1); Alkaline Phosphatase 50 U/L (38-126); Anion Gap 3 mmol/L (8-16); Aspartate Amino Transferase 28 U/L (14-36); Bilirubin,Total 0.8 mg/dL (0.2-1.3); Blood Urea Nitrogen 17 mg/dL (7-17); Calcium 8.8 mg/dL (8.4-10.2); Carbon Dioxide 31 mmol/L (22-30); Chloride 104 mmol/L (98-107); Cholesterol 161 mg/dL (0-200); Estimated Glomerular Filt Rate > 60; Glucose 110 mg/dL (65-110); HDL Direct 76 mg/dL; Potassium 3.8 mmol/L (3.4-5.0); Sodium 138 mmol/L (137-145); Triglycerides 47 mg/dL (<150)
[2023-02-19 07:48] LABS: Hemoglobin A1C 6.1 % (<5.7)
[2023-02-19 07:55] LABS: LDL Cholesterol Direct 64 mg/dL
[2023-02-19 08:34] LABS: Free T4 Free Thyroxine 1.11 ng/mL (0.78-2.19); Vitamin D 25 Hydroxy 40.8 ng/mL
== END 2023-02-19 06:59 | disposition home or self-care (01) ==
LOC: ANHLAB 07:03
PROVIDERS: PCP Internal Medicine; Visit Provider Internal Medicine
DX: E55.9 Vitamin D deficiency, unspecified (principal); Z13.29 Encounter for screening for other suspected endocrine disorder; Z79.899 Other long term (current) drug therapy; E78.2 Mixed hyperlipidemia; R73.03 Prediabetes; I10 Essential (primary) hypertension
CPT/HCPCS: 36415; 80053; 80061; 82306; 83036; 84439; 84443

== ENCOUNTER 2023-03-10 07:47 | Outpatient (CLI) | payer MEDICARE, BC, SELFPAY ==
--- NOTE | ~2023-03-10 | MM_ITS ---
EXAMINATION: MM screening aishwarya BI w dionne HISTORY: Screening mammogram TECHNIQUE: Craniocaudal and mediolateral oblique 3-D tomosynthesis images were obtained and synthetic 2-D images were generated. CAD analysis was submitted and interpreted. COMPARISON: 03/06/2022, , 03/01/2020 bilateral screening mammogram examinations BREAST PARENCHYMAL COMPOSITION: There are scattered areas of fibroglandular density. FINDINGS: Occasional benign calcifications are noted bilaterally. There is no evidence of suspicious mass, calcification, or architectural distortion to suggest malignancy in either breast. There has be en no suspicious interval change. IMPRESSION: 1. No mammographic evidence of malignancy. 2. Recommend routine screening mammography in one year. BI-RADS Category 1: Negative Reviewed, dictated and finalized at location A.
--- NOTE | ~2023-03-10 | DEXA_ITS ---
Bone Density Report Name: FRANCES CORTEZ Age: 73 Sex: Female Ethnicity: White Date of : 1950 Indication: postmenopausal; screening for osteoporosis; cancer; hysterectomy; Referring Provider: LITA GAINES Study: Bone densitometry was performed. Exam Date: March 10, 2023 Accession number: [id number] Bone Density: Region BMD T-score Z-score Classification AP Spine(L1-L4) 1.045 0.0 2.3 Normal Femoral Neck (Left) 0.835 -0.1 1.9 Normal Total Hip (Left) 0.857 -0.7 1.0 Normal Femoral Neck (Right) 0.750 -0.9 1.1 Normal Total Hip (Right) 0.901 -0.3 1.4 Normal Total Hip Mean 0.879 -0.5 1.2 Normal World Health Organization criteria for BMD impression classify patients as: Normal (T-score at or above -1.0), Osteopenia (T-score between -1.0 and -2.5), or Osteoporosis (T-score at or below -2.5). 10-year Fracture Risk: FRAX not reported because: All T-scores for Spine Total, Hip Total, Femoral Neck at or above -1.0 Previous Exams: Region Exam Age BMD T-score BMD Change BMD Change Date g/cm2 vs Baseline vs Previous AP Spine (L1-L4) 03/10/2023 73 1.045 0.0 0.020 (2.0%)# 0.003 (0.3%) 03/01/2020 70 1.043 0.0 0.017 (1.7%)# 0.033 (3.3%)* 02/27/2017 67 1.009 -0.3 -0.016 (-1.6%) -0.032 (-3.1%) 01/05/2015 64 1.042 0.0 0.016 (1.6%)# 0.016 (1.6%)# 05/05/2012 62 1.025 -0.2 Total Hip(Left) 03/10/2023 73 0.857 -0.7 -0.181 (-17.5% -0.089 (-9.4%) 03/01/2020 70 0.946 0.0 -0.093 (-8.9%) 0.004 (0.5%) 02/27/2017 67 0.941 0.0 -0.097 (-9.3%) -0.012 (-1.2%) 01/05/2015 64 0.953 0.1 -0.085 (-8.2%) -0.085 (-8.2%) 05/05/2012 62 1.038 0.8 Total Hip(Right) 03/10/2023 73 0.901 -0.3 -0.084 (-8.5%) -0.034 (-3.7%) 03/01/2020 70 0.936 -0.1 -0.049 (-5.0%) -0.026 (-2.7%) 02/27/2017 67 0.962 0.2 -0.023 (-2.3%) 0.004 (0.4%) 01/05/2015 64 0.958 0.1 -0.027 (-2.7%) -0.027 (-2.7%) 05/05/2012 62 0.985 0.4 *Denotes significance at 95% confidence level, LSC for AP Spine = 0.022 g/cm2, LSC for Total Hip = 0.027 g/cm2 # Denotes dissimilar scan types or analysis methods Clinical Information Provided by Patient: Has used the following medications: Vitamin D Has the following medical conditions: Cancer, Hysterectomy Patient maximum height was 66 Menopause Age: 39 Does not regularly consume dairy products Drinks caffeinated beverages Onset of menses at age 12 Number of children 2
== END 2023-03-10 07:48 | disposition home or self-care (01) ==
PROVIDERS: PCP Internal Medicine; Visit Provider Obstetrics & Gynecology Gynecology
DX: Z12.31 Encounter for screening mammogram for malignant neoplasm of breast (principal); Z78.0 Asymptomatic menopausal state
CPT/HCPCS: 77063; 77067; 77080

== ENCOUNTER 2023-04-02 12:47 | Outpatient (CLI) | payer MEDICARE, BC, SELFPAY ==
--- NOTE | 2023-04-02 13:06 | ECHO_ITS ---
Patient Info Name: Gayle Ventura Age: 73 years : 1950 Gender: Female Ht: 66 in Wt: 200 lbs BSA: 2.09 m2 HR: 64 bpm BP: 180 / 108 mmHg Heart Rhythm: Sinus Rhythm Technical Quality: Good Exam Date: 04/02/2023 1:18 PM Exam Location: [facility] Patient Status: Outpatient Admit Date: 04/02/2023 Staff Ordering Physician: Tay Enamorado MD Geography Faculty Member: France Badillo RDCS Attending Provider: Tay Enamorado MD Referring Physician: Fei SHAFER; Exam Type: CA echo doppler color flow Study Info Indications - Heart disease Complete two-dimensional, color flow and Doppler transthoracic echocardiogram is performed. Summary 1. Complete two-dimensional, color flow and Doppler transthoracic echocardiogram is performed. 2. Left ventricular chamber dimension is normal. 3. Left ventricular systolic function is normal, estimated at 60-65%. 4. The left ventricular diastolic function is abnormal. 5. E/e' 16 is elevated. 6. Left atrial chamber dimension is moderately enlarged. 7. Right atrial chamber dimension is mildly enlarged. 8. There is mild mitral valve regurgitation. 9. There is trace tricuspid valve regurgitation. 10. No pulmonary hypertension, estimated pulmonary arterial systolic pressure is 19 mmHg. Left Ventricle E/e' 16 is elevated. Left ventricular chamber dimension is normal. Left ventricular systolic function is normal, estimated at 60-65%. The left ventricular diastolic function is abnormal. Right Ventricle Right ventricular systolic function is normal and with normal TAPSE 3.0 cm. Right ventricular chamber dimension is normal. Left Atria Left atrial chamber dimension is moderately enlarged. Right Atria Right atrial chamber dimension is mildly enlarged. Aortic Valve The aortic valve is trileaflet. There is no aortic valve stenosis. There is no aortic valve regurgitation. Pulmonic Valve There is no pulmonic regurgitation. Mitral Valve There is no mitral valve stenosis. There is mild mitral valve regurgitation. Tricuspid Valve There is trace tricuspid valve regurgitation. No pulmonary hypertension, estimated pulmonary arterial systolic pressure is 19 mmHg. Pericardium/Pleural There is no pericardial effusion. Inferior Vena Cava Normal inferior vena cava with >50% collapse upon inspiration consistent with normal right atrial pressure, 5 mmHg. Aorta The aortic root size at the sinus of Valsalva is normal. Left Ventricular Outflow Tract Name Value Normal LVOT 2D LVOT Diameter 2.1 cm LVOT Doppler LVOT Peak Gradient 2 mmHg LVOT Mean Gradient 1 mmHg LVOT VTI 26 cm LVOT VTI/AV VTI Ratio 0.7 LVOT Stroke Volume 89 ml LVOT CO 3.3 l/min LVOT CI 1.6 l/min/m2 Pulmonic Valve Name Value Normal RVOT Doppler
== END 2023-04-02 12:48 | disposition home or self-care (01) ==
LOC: ANHCARD 12:48
PROVIDERS: PCP Internal Medicine; Visit Provider Internal Medicine
DX: I51.89 Other ill-defined heart diseases (principal); I45.10 Unspecified right bundle-branch block; I34.0 Nonrheumatic mitral (valve) insufficiency
CPT/HCPCS: 93306

== ENCOUNTER 2023-05-12 09:41 | Outpatient (CLI) | payer MEDICARE, BC, SELFPAY | END 2023-05-12 09:42 | disposition home or self-care (01) | LOC: ANHAUDIO 09:41 | PROVIDERS: PCP Internal Medicine; Visit Provider Internal Medicine | DX: H91.90 Unspecified hearing loss, unspecified ear (principal) | CPT/HCPCS: 92557; 92567 ==

== ENCOUNTER 2023-07-23 06:44 | Outpatient (CLI) | payer MEDICARE, BC, SELFPAY ==
[2023-07-23 08:04] LABS: Basophils Percent Auto 0.3 % (0.2-1.2); Eosinophils Percent Auto 0.2 % (0-4.4); Hematocrit 39.3 % (37.0-47.0); Hemoglobin 13.1 g/dL (12.0-15.0); Immature Granulocyte Absolute 0.02 K/mm3 (0.00-0.031); Immature Granulocyte Percent A 0.3 % (0-0.5); Lymphocytes Absolute Auto 1.24 K/mm3 (0.9-3.2); Lymphocytes Percent Auto 20.6 % (18.3-44.2); Mean Corpuscular HGB Conc 33.3 g/dl (32-36); Mean Corpuscular Hemoglobin 32.3 pg (26-34); Mean Corpuscular Volume 96.8 fl (80-100); Monocytes Absolute Auto 0.6 K/mm3 (0.1-0.6); Monocytes Percent Auto 10.1 % (2.6-8.5); Neutrophils Absolute Auto 4.1 K/mm3 (1.3-6.7); Neutrophils Percent Auto 68.5 % (45.5-73.1); Platelet Count Result 202 k/mm3 (150-375); Red Blood Count 4.06 M/mm3 (4.2-5.4); Red Cell Distribution Width 12.1 % (11.5-14.5)
[2023-07-23 08:26] LABS: Alanine Aminotransferase 21 U/L (6-35); Albumin Level 3.7 g/dL (3.5-5.1); Alkaline Phosphatase 55 U/L (38-126); Anion Gap 7 mmol/L (8-16); Aspartate Amino Transferase 25 U/L (14-36); Bilirubin,Total 0.8 mg/dL (0.2-1.3); Blood Urea Nitrogen 17 mg/dL (7-17); Calcium 8.9 mg/dL (8.4-10.2); Carbon Dioxide 28 mmol/L (22-30); Chloride 103 mmol/L (98-107); Cholesterol 172 mg/dL (0-200); Estimated Glomerular Filt Rate > 60; Glucose 132 mg/dL (65-110); HDL Direct 80 mg/dL; Potassium 3.9 mmol/L (3.4-5.0); Sodium 138 mmol/L (137-145); Triglycerides 39 mg/dL (<150)
[2023-07-23 08:37] LABS: LDL Cholesterol Direct 82 mg/dL
[2023-07-23 08:43] LABS: Free T4 Free Thyroxine 1.01 ng/mL (0.78-2.19)
== END 2023-07-23 06:45 | disposition home or self-care (01) ==
PROVIDERS: PCP Internal Medicine; Visit Provider Internal Medicine
DX: E78.2 Mixed hyperlipidemia (principal); I10 Essential (primary) hypertension; R73.03 Prediabetes; Z79.899 Other long term (current) drug therapy; Z13.29 Encounter for screening for other suspected endocrine disorder
CPT/HCPCS: 36415; 80053; 80061; 83036; 84439; 84443; 85025

== ENCOUNTER 2023-07-31 09:55 | Outpatient (CLI) | payer MEDICARE, BC, SELFPAY ==
--- NOTE | ~2023-07-31 | XR_ITS ---
EXAM: XR hand RT min 3V DATE: 07/31/2023 10:15 HISTORY: M79.643 - Pain in unspecified hand, chronic . COMPARISON: 08/03/2020. FINDINGS: Normal mineralization. No fracture or dislocation. No lytic or blastic lesion. Scattered a rthritic changes typical of osteoarthritis, with erosive changes, most severe at the right second DIP and fifth DIP joints. Possible ankylosis at the right fifth DIP joint. Severe erosive arthritic davies ge also noted in the fourth PIP joint. Nonerosive osteoarthritic changes, mild at the trapeziometacar pal joint and radiocarpal articulation and moderate at the triscaphe joint and third MCP joint. No er osion or periosteal change. Scattered phleboliths. 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 Reviewed, dictated and finalized at location K. ESSING TECHNOLOGIST IMPRESSION: Polyarticular osteoarthritic arthritis, with a component of erosive osteoarthritis in multiple joints.
--- NOTE | ~2023-07-31 | XR_ITS ---
Left Hand Technique: PA, oblique, and lateral views were obtained. Clinical History: Pain Findings: No acute fracture or dislocation is seen. There is advanced degenerative change of the four th and fifth PIP joints, as well as the third and fifth DIP joints. There is advanced degenerative ch elly of the interphalangeal joint of the thumb. There is moderate degenerative change of the first CM C joint. There is mild degenerative change of the remaining interphalangeal joints not previously men tioned.. Soft tissues are unremarkable. Impression: Polyarticular osteoarthritis, as detailed above. Reviewed, dictated and finalized at location M. T ADMINISTRATOR Impression: Polyarticular osteoarthritis, as detailed above.
== END 2023-07-31 09:56 | disposition home or self-care (01) ==
LOC: ANHIMG 10:00
PROVIDERS: PCP Internal Medicine; Visit Provider Internal Medicine
DX: M79.89 Other specified soft tissue disorders (principal); M19.041 Primary osteoarthritis, right hand; M19.042 Primary osteoarthritis, left hand
CPT/HCPCS: 73130

== ENCOUNTER 2023-08-06 07:45 | Outpatient (CLI) | payer MEDICARE, BC, SELFPAY ==
[2023-08-06 08:36] LABS: CRP < 0.5 mg/dL (<1.0)
[2023-08-06 08:57] LABS: Erythrocyte Sedimentation Rate 7 mm/hr (0-20)
[2023-08-10 12:15] LABS: Anti Cyclic Citrullinated Pept <16 Units (<20)
== END 2023-08-06 07:46 | disposition home or self-care (01) ==
LOC: ANHLAB 07:49
PROVIDERS: PCP Internal Medicine; Visit Provider Internal Medicine
DX: M79.643 Pain in unspecified hand (principal); G89.29 Other chronic pain
CPT/HCPCS: 36415; 85652; 86038; 86140; 86200

== ENCOUNTER 2023-12-07 06:36 | Outpatient (CLI) | payer MEDICARE, BC, SELFPAY ==
[2023-12-07 07:41] LABS: Alanine Aminotransferase 17 U/L (6-35); Albumin Level 4.2 g/dL (3.5-5.1); Alkaline Phosphatase 57 U/L (38-126); Anion Gap 6 mmol/L (4-12); Aspartate Amino Transferase 22 U/L (14-36); Bilirubin,Total 1.4 mg/dL (0.2-1.3); Blood Urea Nitrogen 14 mg/dL (7-17); Calcium 9.2 mg/dL (8.4-10.2); Carbon Dioxide 28 mmol/L (22-30); Chloride 104 mmol/L (98-107); Cholesterol 183 mg/dL (0-200); Estimated Glomerular Filt Rate > 60; Glucose 136 mg/dL (65-110); HDL Direct 82 mg/dL; Potassium 3.5 mmol/L (3.4-5.0); Sodium 138 mmol/L (137-145); Triglycerides 74 mg/dL (<150)
[2023-12-07 07:52] LABS: LDL Cholesterol Direct 89 mg/dL
== END 2023-12-07 06:37 | disposition home or self-care (01) ==
LOC: ANHLAB 06:39
PROVIDERS: PCP Internal Medicine; Visit Provider Internal Medicine
DX: R73.03 Prediabetes (principal); E78.2 Mixed hyperlipidemia; I10 Essential (primary) hypertension
CPT/HCPCS: 36415; 80053; 80061; 83036

== ENCOUNTER 2023-12-09 09:01 | Outpatient (CLI) | payer MEDICARE, BC, SELFPAY ==
--- NOTE | ~2023-12-09 | MR_ITS ---
MRI of the left hand CLINICAL HISTORY: Evaluate left middle finger probably tear TECHNIQUE: Axial T1-weighted and T2 fat-sat images, coronal T1-weighted and T2 fat-sat images, and sa gittal T1-weighted and T2 fat-sat images were acquired. FINDINGS: There is severe osteoarthritis of the interphalangeal joint of the thumb, with prominent os teophyte formation, joint space narrowing, and subchondral cystic change of the base of the distal ph alanx of the thumb. There is moderate degenerative change of the first CMC joint. There are moderate degenerative changes throughout the interphalangeal joints of the fingers, worst at the fourth PIP merlin int. No fracture or suspicious bone marrow edema identified. No joint effusion. Flexor and extensor tendons are intact. No bowstringing of the tendons to suggest thierry injury, in p articular of the middle finger. Intrinsic musculature of the hand is grossly unremarkable. No soft ti ssue mass or fluid collection evident. IMPRESSION: No evidence of thierry injury. Extensive polyarticular osteoarthritis, worst at the interphalangeal joint of the thumb. Please see d etails above. Reviewed, dictated and finalized at location . IMPRESSION: No evidence of thierry injury. Extensive polyarticular osteoarthritis, worst at the interphalangeal joint of t he thumb. Please see details above.
--- NOTE | ~2023-12-09 | XR_ITS ---
XR hand LT min 3V DATE: 12/09/2023 09:44 INDICATION: Left hand strain TECHNIQUE: 3 views COMPARISON: None FINDINGS: There is prominent joint space narrowing and some eburnation at the triscaphe joint. There is moderately severe osteophytic change at the first carpometacarpal joint. There is severe joint spa ce narrowing and very prominent spurring at the interphalangeal joint of the first digit. Prominent o steoarthritic changes are noted at the proximal and distal interphalangeal joints of the other digits as well. No erosive changes are noted. Osteopenia. No fracture, dislocation, periosteal reaction or bone destruction is detected. IMPRESSION: Prominent polyarticular osteoarthritis Osteopenia Reviewed, dictated and finalized at location B.
== END 2023-12-09 09:02 ==
LOC: MICIMG 09:02
PROVIDERS: PCP Internal Medicine; Visit Provider Plastic Surgery
DX: M18.12 Unilateral primary osteoarthritis of first carpometacarpal joint, left hand (principal); M19.042 Primary osteoarthritis, left hand
CPT/HCPCS: 73130; 73218

== ENCOUNTER 2023-12-22 09:56 | Outpatient (CLI) | payer MEDICARE, BC, SELFPAY ==
--- NOTE | ~2023-12-22 | US_ITS ---
EXAMINATION: US renal BI DATE: 12/22/2023 11:45 INDICATION: Essential primary hypertension. TECHNIQUE: Multiple ultrasound grayscale images of the kidneys were obtained. COMPARISON: None. FINDINGS: The right kidney measures 10.5 x 5.3 x 5.3 cm. The left kidney measures 11.8 x 5.9 x 4.7 cm. The kidn eys demonstrate normal parenchymal echogenicity. There is no hydronephrosis. The bladder is normal. IMPRESSION: 1. Normal kidneys. No hydronephrosis. Reviewed, dictated and finalized at location A.
--- NOTE | ~2023-12-22 | US_ITS ---
EXAMINATION: US retroperitoneal duplex ltd DATE: 12/22/2023 11:46 INDICATION: Essential primary hypertension. TECHNIQUE: Multiple grayscale, color Doppler, and pulsed Doppler images of the kidneys and renal chelo alejandro were obtained. COMPARISON: None. FINDINGS: The aorta peak systolic velocity is 137 cm/s. The right renal artery peak systolic velocity is 61 cm/ s in the proximal segment, 48 cm/s in the mid segment, and 55 cm/s in the distal segment. The left re nal artery peak systolic velocity is 93 cm/s in the proximal segment, 49 cm/s in the mid segment, and 43 cm/s in the distal segment. IMPRESSION: 1. No Doppler evidence of renal artery stenosis. Reviewed, dictated and finalized at location A.
== END 2023-12-22 09:57 | disposition home or self-care (01) ==
LOC: ANHIMG 10:01
PROVIDERS: PCP Internal Medicine; Visit Provider Internal Medicine
DX: I10 Essential (primary) hypertension (principal); Z79.899 Other long term (current) drug therapy
CPT/HCPCS: 76775; 93976

== ENCOUNTER 2024-03-31 14:50 | Outpatient (CLI) | payer MEDICARE, BC, SELFPAY ==
--- NOTE | ~2024-03-31 | MM_ITS ---
EXAMINATION: MM screening aishwarya BI w dionne HISTORY: Screening mammogram TECHNIQUE: Craniocaudal and mediolateral oblique 3-D tomosynthesis images were obtained and synthetic 2-D images were generated. CAD analysis was submitted and interpreted. COMPARISON: 03/10/2023, 03/06/2022, 03/04/2021 BREAST PARENCHYMAL COMPOSITION:Not Dense. The breasts are almost entirely fatty FINDINGS: No suspicious mass, calcification, or architectural distortion are identified in either tawnya ast to suggest malignancy. There has been no suspicious interval change. IMPRESSION: No mammographic evidence of malignancy. Recommend routine screening mammography in one year. BI-RADS Category 1: Negative Reviewed, dictated and finalized at location .
== END 2024-03-31 14:51 | disposition home or self-care (01) ==
LOC: ANHIMG 14:52
PROVIDERS: PCP Internal Medicine; Visit Provider Obstetrics & Gynecology Gynecology
DX: Z12.31 Encounter for screening mammogram for malignant neoplasm of breast (principal)
CPT/HCPCS: 77063; 77067

== ENCOUNTER 2024-04-29 07:18 | Outpatient (CLI) | payer MEDICARE, BC, SELFPAY ==
[2024-04-29 07:59] LABS: Basophils Percent Auto 0.4 % (0.2-1.2); Eosinophils Absolute Auto 0.1 K/mm3 (0-0.3); Eosinophils Percent Auto 3.1 % (0-4.4); Hematocrit 39.8 % (37.0-47.0); Hemoglobin 13.3 g/dL (12.0-15.0); Immature Granulocyte Absolute 0.01 K/mm3 (0.00-0.031); Immature Granulocyte Percent A 0.2 % (0-0.5); Lymphocytes Absolute Auto 1.22 K/mm3 (0.9-3.2); Lymphocytes Percent Auto 26.9 % (18.3-44.2); Mean Corpuscular HGB Conc 33.4 g/dl (32-36); Mean Corpuscular Hemoglobin 32.1 pg (26-34); Mean Corpuscular Volume 96.1 fl (80-100); Mean Platelet Volume 10.7 fl (7.4-10.4); Monocytes Absolute Auto 0.8 K/mm3 (0.1-0.6); Neutrophils Absolute Auto 2.4 K/mm3 (1.3-6.7); Neutrophils Percent Auto 52.4 % (45.5-73.1); Platelet Count Result 160 k/mm3 (150-375); Red Blood Count 4.14 M/mm3 (4.2-5.4); White Blood Count 4.5 K/mm3 (4.5-10.0)
[2024-04-29 08:04] LABS: Add Urine Microscopic? YES; Appearance Urine Clear (Clear); Bacteria Urine None Seen /hpf; Bilirubin Urine Negative (Negative); Blood Urine 1+ (Negative); Color Urine Yellow (Yellow); Glucose Urine UA Negative (Negative); Ketones Urine Negative (Negative); Leukocyte Esterase Ur Trace LEU/UL (Negative); Nitrate Urine Negative (Negative); Non Pathogenic Casts 0-2; Protein Urine Negative (Negative); Specific Grav Ur 1.013 (1.001-1.035); Squamous Epithelial Cell Urine None Seen /hpf (Few); WBC Urine 0-5 /hpf (0-3)
[2024-04-29 08:12] LABS: Alanine Aminotransferase 16 U/L (6-35); Albumin Level 3.9 g/dL (3.5-5.1); Alkaline Phosphatase 52 U/L (38-126); Anion Gap 5 mmol/L (4-12); Aspartate Amino Transferase 24 U/L (14-36); Bilirubin,Total 1.2 mg/dL (0.2-1.3); Blood Urea Nitrogen 15 mg/dL (7-17); Carbon Dioxide 30 mmol/L (22-30); Chloride 103 mmol/L (98-107); Cholesterol 180 mg/dL (0-200); Estimated Glomerular Filt Rate > 60; Glucose 118 mg/dL (65-110); HDL Direct 79 mg/dL; Potassium 3.5 mmol/L (3.4-5.0); Sodium 138 mmol/L (137-145); Triglycerides 84 mg/dL (<150)
[2024-04-29 08:22] LABS: LDL Cholesterol Direct 71 mg/dL
[2024-04-29 10:59] LABS: Hemoglobin A1C 6.1 % (<5.7)
[2024-04-29 11:33] LABS: Free T4 Free Thyroxine 1.25 ng/mL (0.78-2.19)
== END 2024-04-29 07:19 | disposition home or self-care (01) ==
PROVIDERS: PCP Internal Medicine; Visit Provider Internal Medicine
DX: R73.03 Prediabetes (principal); E78.2 Mixed hyperlipidemia; I10 Essential (primary) hypertension; Z13.29 Encounter for screening for other suspected endocrine disorder; Z79.899 Other long term (current) drug therapy
CPT/HCPCS: 36415; 80053; 80061; 81001; 83036; 84439; 84443; 85025

== ENCOUNTER 2024-05-05 12:08 | Outpatient (CLI) | payer MEDICARE, BC, SELFPAY ==
--- NOTE | ~2024-05-05 | CT_ITS ---
CT of the Abdomen and Pelvis: Indication: Microscopic hematuria Technique: 2.5 mm axial scans were obtained through the abdomen and pelvis prior to and following in travenous administration of 130 cc of Omnipaque 350. Dose reduction technique was used on this scan b y utilizing automated exposure control and iterative reconstruction technique. The dose-length produc t (DLP) was 1647.98 mGy-cm. Findings: Scans through the lung bases are unremarkable. Left hepatic lobe cysts noted. The spleen, pancreas, gallbladder, and adrenal glands are within bright l limits. Parapelvic renal cysts are noted. There are atherosclerotic calcifications of the aorta. N o lymphadenopathy. No bowel obstruction or bowel wall thickening. There is no evidence to suggest acute appendicitis. Mo derate fat-containing ventral hernia just superior to the umbilicus. Images through the pelvis were performed. Urinary bladder unremarkable. Status post hysterectomy. No pelvic mass seen. No ascites. There is degenerative spondylosis of the lumbar spine. Impression: No etiology for hematuria identified. Moderate fat-containing ventral hernia, as above. Bilateral parapelvic renal cysts. Reviewed, dictated and finalized at location . Impression: No etiology for hematuria identified. Moderate fat-containing ventral hernia, as above. Bilateral parapelvic renal cysts.
== END 2024-05-05 12:09 | disposition home or self-care (01) ==
LOC: ANHIMG 12:12
PROVIDERS: PCP Internal Medicine; Visit Provider Internal Medicine
DX: R31.29 Other microscopic hematuria (principal); K43.9 Ventral hernia without obstruction or gangrene; N28.1 Cyst of kidney, acquired
CPT/HCPCS: 74178; Q9967

== ENCOUNTER 2024-06-02 12:19 | Outpatient (CLI) | payer MEDICARE, BC, SELFPAY | END 2024-06-02 12:20 | disposition home or self-care (01) | LOC: ANHLAB 12:26 | PROVIDERS: PCP Internal Medicine; Visit Provider Obstetrics & Gynecology Gynecology | DX: Z85.43 Personal history of malignant neoplasm of ovary (principal) | CPT/HCPCS: 36415; 86304 ==

== ENCOUNTER 2024-09-24 08:01 | Outpatient (CLI) | payer MEDICARE, BC, SELFPAY ==
--- OUTSIDE RECORDS SUMMARY | 2024-09-24 08:04 | XMS_ITS | Patient Health Summary ---
Author Organization [facility] Address [address] [place] [address] Care Team Providers Care Preschool Lead Teacher Name Role Phone Rick Christianson Marina SADLER Primary Care Provider Note from [facility][note 3],non-owned Affiliates and Associated Physician Practices is amultiple site organization consisting of ambulatory clinics and hospital sitesin [place], [place], [place] and [place]. This disclosure is being madepursuant to the Care Everywhere program and may not contain all informatio navailable regarding this patient. Last updated 18.[facility] Allergies No known active allergies Medications * Be aware that medications may not be up to date on this document. Alwaysverify current medications with the patient. * carvedilol (COREG) 12.5 MG tablet Take 12.5 mg by mouth 2 times daily with breakfast and dinner. * lisinopril-hydrochlorothiazide (PRINZIDE; ZESTORETIC) 20-12.5 MG tablet Take 1 Tab by mouth daily. * levocetirizine (XYZAL) 5 MG tablet Take 5 mg by mouth daily. * calcium citrate-vitamin D (CITRACAL PLUS D) 315-200 MG-UNIT tablet(Started 10/01/2010) Take 1 Tab by mouth once daily. * vitamin E (TOCOPHERYL) 400 UNIT capsule(Started 10/01/2010) Take 400 Units by mouth 2 times daily. * vitamin D, cholecalciferol, 1000 UNIT tablet Take 2,000 Units by mouth daily. * triamcinolone (NASACORT AQ) 55 MCG/ACT nasal inhaler [place] 2 Sprays into each nostril daily. * ibuprofen (MOTRIN) 600 MG tablet(Started 10/31/2010) Take 1 Tab by mouth every 6 hours as needed for Pain. 1 refill left * potassium chloride (KLOR-CON) 10 MEQ tablet Take 10 mEq by mouth 2 times daily. 2 TABS * ibuprofen (MOTRIN) 600 MG tablet(Started 04/14/2011) Take 1 Tab by mouth every 6 hours as needed for Pain. * oxycodone-acetaminophen (PERCOCET) 5-325 MG tablet(Started 04/14/2011) Take 1-2 Tabs by mouth every 6 hours as needed for Pain. Active Problems No known active problems Social History Tobacco Use Types Packs/Day Years Used Date Smoking Tobacco: Never Alcohol Use Standard Drinks/Week Comments Yes 0 (1 standard drink = 0.6 oz pur e alcohol) occasionally Sex and Gender Information Value Date Recorded Sex Assigned at Not on file Gender Identity Not on file Sexual Orientation Not on file Last Filed Vital Signs Vital Sign Reading Time Taken Comments Blood Pressure 140/80 02/05/2016 11:53 AM CDT Pulse 68 04/14/2011 10:31 AM CDT Temperature 36.6 C (97.9 F) 04/14/2011 9:38 AM CDT Respiratory Rate 18 04/14/2011 10:31 AM CDT Oxygen Saturation 99% 04/14/2011 10:31 AM CDT Inhaled Oxygen Concentration - - Weight 91.6 kg (202 lb) 02/05/2016 11:53 AM CDT Height 167.6 cm (5' 6 ) 02/05/2016 11:53 AM CDT Body Mass Index 32.6 02/05/2016 11:53 AM CDT Procedures * LAB HISTORICAL RESULTS-ONBASE(Performed 01/26/2016) * LAB HISTORICAL RESULTS-ONBASE(Performed 05/06/2014) * LAB HISTORICAL RESULTS-ONBASE(Performed 01/07/2014) * LAB HISTORICAL RESULTS-ONBASE(Performed 10/08/2013) * LAB HISTORICAL RESULTS-ONBASE(Performed 07/09/2013) * LAB HISTORICAL RESULTS-ONBASE(Performed 01/08/2013) * LAB HISTORICAL RESULTS-ONBASE(Performed 01/08/2013) * LAB HISTORICAL RESULTS-ONBASE(Performed 11/06/2012) * LAB HISTORICAL RESULTS-ONBASE(Performed 11/06/2012) * LAB HISTORICAL RESULTS-ONBASE(Performed 08/04/2012) * LAB HISTORICAL RESULTS-ONBASE(Performed 03/04/2012) * LAB HISTORICAL RESULTS-ONBASE(Performed 01/12/2012) * LAB HISTORICAL RESULTS-ONBASE(Performed 10/04/2011) * LAB HISTORICAL RESULTS-ONBASE(Performed 08/16/2011) * LAB HISTORICAL RESULTS-ONBASE(Performed 08/16/2011) * LAB HISTORICAL RESULTS-ONBASE(Performed 06/16/2011) * LAB HISTORICAL RESULTS-ONBASE(Performed 06/16/2011) * LAB HISTORICAL RESULTS-ONBASE(Performed 06/16/2011) * LAB HISTORICAL RESULTS-ONBASE(Performed 04/30/2011) * CARDIAC RHYTHM STRIP ORDER(Performed 04/18/2011) * LAB HISTORICAL RESULTS-ONBASE(Performed 03/20/2011) * LAB HISTORICAL RESULTS-ONBASE(Performed 03/14/2011) * LAB HISTORICAL RESULTS-ONBASE(Performed 03/14/2011) * LAB HISTORICAL RESULTS-ONBASE(Performed 02/28/2011) * LAB HISTORICAL RESULTS-ONBASE(Performed 02/28/2011) * LAB HISTORICAL RESULTS-ONBASE(Performed 02/28/2011) * LAB HISTORICAL RESULTS-ONBASE(Performed 02/28/2011) * LAB HISTORICAL RESULTS-ONBASE(Performed 02/22/2011) * LAB HISTORICAL RESULTS-ONBASE(Performed 02/12/2011) * LAB HISTORICAL RESULTS-ONBASE(Performed 02/12/2011) * LAB HISTORICAL RESULTS-ONBASE(Performed 02/07/2011) * LAB HISTORICAL RESULTS-ONBASE(Performed 02/07/2011) * LAB HISTORICAL RESULTS-ONBASE(Performed 01/31/2011) * LAB HISTORICAL RESULTS-ONBASE(Performed 01/31/2011) * LAB HISTORICAL RESULTS-ONBASE(Performed 01/17/2011) * LAB HISTORICAL RESULTS-ONBASE(Performed 01/17/2011) * LAB HISTORICAL RESULTS-ONBASE(Performed 01/17/2011) * LAB HISTORICAL RESULTS-ONBASE(Performed 01/10/2011) * CBC W AUTO DIFFERENTIAL(Performed 12/31/2010) * LAB HISTORICAL RESULTS-ONBASE(Performed 12/06/2010) * LAB HISTORICAL RESULTS-ONBASE(Performed 11/29/2010) * LAB HISTORICAL RESULTS-ONBASE(Performed 11/22/2010) * LAB HISTORICAL RESULTS-ONBASE(Performed 11/14/2010) * LAB HISTORICAL RESULTS-ONBASE(Performed 11/14/2010) * LAB HISTORICAL RESULTS-ONBASE(Performed 11/14/2010) * CARDIAC RHYTHM STRIP ORDER(Performed 11/05/2010) * XR CHEST 1VW PORTABLE(Performed 10/31/2010) Performed for Admission for fitting of portacath * IR GUID W FL CVAD PL-REPL-REM(Performed 10/31/2010) Performed for Pain * CARDIAC RHYTHM STRIP ORDER(Performed 10/10/2010) * BASIC METABOLIC PANEL (CALCIUM TOTAL)(Performed 10/08/2010) * CBC W/O DIFFERENTIAL(Performed 10/08/2010) * FROZEN SECTION(Performed 10/07/2010) * FROZEN SECTION(Performed 10/07/2010) * CYTOLOGY NON-WELL SERVICES OPERATOR PANEL(Performed 10/07/2010) * CYTOLOGY NON-WELL SERVICES OPERATOR PANEL(Performed 10/07/2010) * PATHOLOGY/GENETICS HISTORICAL-ONBASE(Performed 10/07/2010) * CROSSMATCH RBC ADD X2(Performed 10/04/2010) * TYPE + SCREEN PANEL(Performed 10/04/2010) * LAB HISTORICAL RESULTS-ONBASE(Performed 10/04/2010) * BLOOD TYPE VERIFICATION(Performed 10/01/2010) * TYPE + SCREEN PANEL(Performed 10/01/2010) Performed for Pre-op testing * CANCER ANTIGEN (CA)125 BLOOD(Performed 10/01/2010) Performed for Pre-op testing * BASIC METABOLIC PANEL (CALCIUM TOTAL)(Performed 10/01/2010) Performed for Pre-op testing * HGB HCT PANEL(Performed 10/01/2010) Performed for Pre-op testing * LAB HISTORICAL RESULTS-ONBASE(Performed 10/01/2010) * LAB HISTORICAL RESULTS-ONBASE(Performed 10/01/2010) * LAB HISTORICAL RESULTS-ONBASE(Performed 09/09/2010) * LAB HISTORICAL RESULTS-ONBASE(Performed 09/09/2010) * LAB HISTORICAL RESULTS-ONBASE(Performed 09/06/2010) * LAB HISTORICAL RESULTS-ONBASE(Performed 09/06/2010) * LAB HISTORICAL RESULTS-ONBASE(Performed 07/15/2010) * LAB HISTORICAL RESULTS-ONBASE(Performed 07/15/2010) * LAB HISTORICAL RESULTS-ONBASE(Performed 06/19/2010) * LAB HISTORICAL RESULTS-ONBASE(Performed 05/14/2010) * LAB HISTORICAL RESULTS-ONBASE(Performed 05/14/2010) * LAB HISTORICAL RESULTS-ONBASE(Performed 05/14/2010) Results * LAB HISTORICAL RESULTS-ONBASE (01/26/2016) Only the most recent of56 resultswithin the time period is included. 01/26/2016 Historical Provider LAB - CHEMISTRY O RDERABLES [facility] [address] * CARDIAC RHYTHM STRIP ORDER (04/18/2011 8:24 AM CDT) Only the most recent of3 resultswithin the time period is included. Narrative Transcriptions Document, Scanned - 04/17/2011 3:47 PM CDT Document, Scanned - 04/18/2011 8:24 AM CDT Scanned Document CARDIAC SERVICES ORD ERABLES * (ABNORMAL) CBC W AUTO DIFFERENTIAL (12/31/2010 8:31 AM CDT) WBC 7.8 4.0 - 10.0 K/[facility] RBC 3.75(L) 3.80 - 5.80 M/[facility]UM[facility] Hemoglobin 11.8(L) 12.0 - 16.0 gm/dl [facility] Hematocrit 33.8(L) 37.0 - 47.0 % [facility] MCV 90.1 80.0 - 100.0 fl [facility] MCH 31.5 26.0 - 34.0 pg [facility] MCHC 34.9 31.0 - 37.0 gm/dl [facility] Platelet Count 163 150 - 400 K/[facility] RDW 13.2 11.5 - 14.5 % [facility] Granulocytes % 88.5(H) 50 - 70 % [facility] Lymphocytes % 10.1(L) 20 - 40 % [facility] Monocytes % 1.1 0 - 12 % [facility] Eosinophils % 0.0 0 - 5 % [facility] Basophils % 0.0 0 - 2 % [facility] Granulocytes Absolute 6.93 2.00 - 7.00 x1000/cmm [facility] Lymphocytes Absolute 0.79(L) 0.80 - 4.00 x1000/cmm [facility] Monocytes Absolute 0.09 0.00 - 1.20 x1000/cmm [facility] Eosinophils Absolute 0.00 0.00 - 0.50 x1000/cmm [facility] Basophils Absolute 0.00 0.00 - 0.20 x1000/cmm [facility] BLOOD SPECIMEN / Unknown 12/31/2010 8:31 AM CDT 12/31/2010 9:03 AM CDT Erik Dejesus MD LAB - HEMATOLOGY OR DERABLES Performing Organization Address City/State/[facility] Co de Phone Number [facility] [address] [place] [address] * XR CHEST 1VW PORTABLE (10/31/2010 12:35 PM CDT) Anatomical Region Laterality Modality Chest Radio Fluoroscop y 10/31/2010 12:4 0 PM CDT Impressions 10/31/2010 12:40 PM CDT Left subclavian catheter is in good position. No pneumothorax. Narrative 10/31/2010 12:40 PM CDT Chest: HISTORY: Post vascular catheter placement verification. AP portable chest is obtained. A left subclavian catheter is visualized and the tip of the catheter should be in the lower superior vena cava. There is no pneumothorax. Both lungs are clear. The heart is enlarged. Procedure Note Tomi Quan MD - 10/31/2010 Chest: HISTORY: Post vascular catheter placement verification. AP portable chest is obtained. A left subclavian catheter is visualized and the tip of the catheter should be in the lower superior vena cava. There is no pneumothorax. Both lungs are clear. The heart is enlarged. IMPRESSION Left subclavian catheter is in good position. No pneumothorax. Genesis Huertas MD DIAGNOSTIC IMAGING O RDERABLES * IR GUID W FL CVAD PL-REPL-REM (10/31/2010 10:52 AM CDT) Anatomical Region Laterality Modality Radio Fluoroscop y 10/31/2010 12:2 5 PM CDT Narrative 10/31/2010 12:25 PM CDT HISTORY: Port-A-Cath placement. C-arm fluoroscopy 10/31/2010. FINDINGS: C-arm fluoroscopy was provided for intraoperative guidance. A single fluoroscopic image of the chest demonstrates a left subclavian venous catheter with the tip ending in the cavoatrial junction. Would correlate with intraoperative notes for further details. Procedure Note Robert Gonzalez MD - 10/31/2010 HISTORY: Port-A-Cath placement. C-arm fluoroscopy 10/31/2010. FINDINGS: C-arm fluoroscopy was provided for intraoperative guidance. A single fluoroscopic image of the chest demonstrates a left subclavian venous catheter with the tip ending in the cavoatrial junction. Would correlate with intraoperative notes for further details. Erik Dejesus MD IR ORDERABLES * (ABNORMAL) CBC W/O DIFFERENTIAL (10/08/2010 5:40 AM CDT) [facility] WBC 14.3(H) 4.0 - 10.0 K/[facility] RBC 3.58(L) 3.80 - 5.80 M/[facility] Hemoglobin 11.1(DL) 12.0 - 16.0 gm/dl [facility] Hematocrit 32.6(DL) 37.0 - 47.0 % [facility] MCV 91.1 80.0 - 100.0 fl [facility] MCH 31.0 26.0 - 34.0 pg [facility] MCHC 34.0 31.0 - 37.0 gm/dl [facility] RDW 12.6 11.5 - 14.5 % [facility] Platelet Count 174 150 - 400 K/[facility] BLOOD SPECIMEN / Unknown 10/08/2010 5:40 AM CDT 10/08/2010 5:55 AM CDT Ross Padgett MD LAB - HEMATOLOGY ORDERABLES [facility] [address] [place] [address] * (ABNORMAL) BASIC METABOLIC PANEL (CALCIUM TOTAL) (10/08/2010 5:40 AM CDT) Only the most recent of2 resultswithin the time period is included. Sodium 135(L) 137 - 145 mmol/L [facility] Potassium 3.6 3.6 - 5.0 mmol/L [facility] Chloride 106 98 - 107 mmol/L [facility] BUN 12 7 - 17 mg/dl [facility] Creatinine 0.91 0.52 - 1.04 mg/dl [facility] Glucose 108(H) 65 - 105 mg/dl [facility] CO2 28 22 - 30 mmol/L [facility] Calcium 7.3(DL) 8.4 - 10.2 mg/dl [facility] eGFR by MDRD 63 >60 mL/min/1.7 3m2 [facility] Comment eGFR [facility] Comment: The eGFR does not apply to patients who are younger than 18 or older than 70. BLOOD SPECIMEN / Unknown 10/08/2010 5:40 AM CDT 10/08/2010 5:55 AM CDT Ross Padgett MD LAB - CHEMISTRY ORDERABLES Performing Organization Address City/State/[facility] Co de Phone Number [facility] [address] [place] [address] * FROZEN SECTION (10/07/2010 9:56 AM CDT) Only the most recent of2 resultswithin the time period is included. Result CASE NUMBER [id number] Comment: ORDERING PHYSICIAN ERIK DEJESUS SPECIMEN TYPE Pelvic Mass Date 10/07/2010 Physician Dada Dejesus Gross Description The specimen is received in six containers, each labeled with the patient's name, Gayle Ventura Specimen A, pelvic mass is received fresh for frozen section, and consists of a 4.5 x 4 x 2.5 cm polypoid, lobulated soft pink-bob mass. There is an additional 2 x 1.5 x 1 cm similar fragment. The sectioned surfaces show a bob and white-bob surface that is similar throughout the entire specimen. A single appliance service representative section is submitted for frozen section in cassette FSA. Fuel Pilot Engineer sections are submitted in cassettes C-G. The next specimen is labeled No. 2 pelvic mass and consists of pink- bob and yellow fibrofatty tissue measuring approximately 4 x 2.5 x 1.0 cm in aggregate. There is a tubular structure contained in this specimen grossly appearing similar to a fallopian tube. There are a couple of firm areas measuring approximately 3-4 mm in diameter. Fuel Pilot Engineer sections are submitted in cassettes H-J. The next specimen is labeled No. 3 right pelvic lymph nodes and consists of approximately 5 x 4.5 x 1.5 cm of yellow-pink fibrofatty tissue and lymph nodes. Multiple lymph nodes are found. The largest is approximately 2 x 1.3 x 1 cm, and appears mostly fatty replaced. Sections are submitted as follows K is two appliance service representative sections of the largest node. L is two bisected nodes. M is one bisected node. The next specimen is labeled No. 4 left pelvic lymph node and consists of multiple pink-bbo and yellow fragments of fibrofatty tissue and lymph nodes measuring approximately 6.5 x 3.5 x 2 cm in aggregate. Multiple lymph nodes are found. Sections are submitted as follows N is seven possible lymph nodes. O is three bisected lymph nodes. P is two bisected lymph nodes. Q is two bisected lymph nodes, and R is an irregularly shaped firm area that has been bisected. The next specimen is labeled No. 5 periaortic lymph nodes and consists of multiple pink-bob and yellow fibrofatty fragments measuring 5.5 x 4 x 1.5 cm in aggregate. Multiple lymph nodes are found. Sections are submitted as follows S is six possible lymph nodes. T is three bisected lymph nodes. U is two bisected lymph nodes, and V is two bisected lymph nodes. The next specimen is labeled pelvic washings and consists of approximately 40 mL of red cloudy fluid with floating fragments of tissue, submitted entirely for cell block in cassette B. MS/vl Specimen #2, pelvic mass the remainder of the non-adipose tissue is submitted in cassettes W and X. MS nunez Microscopic Exam Sections labeled FSA and C through G are from the pelvic mass and reveal adenocarcinoma with features of endometrioid and mucinous carcinoma of moderately-differentiated nature. Tumor shows areas of necrosis, [id number] gland formation. The majority of the tumor is endometrioid in nature lined by stratified columnar epithelium with nuclear dyspolarity, hyperchromasia, variation in nuclear size and shape. Other areas of mucinous differentiation are seen. Interspersed the stroma appears to be fibrocollagenous, vascular in nature, other areas suggestive of smooth muscle in nature. Additional sections of the remainder of the pelvic mass #2, labeled as W and X, reveal sections of fallopian tube, paratubal tissue, and portion of the ovarian tissue. The tubal lumen shows transition from normal to the malignancy, of focal nature. Ovary reveals no malignancy. Section of the cell block labeled B reveals a button of tissue consisting of blood, acute inflammatory exudate, nuclear protein debris, fibrinous material, intermixed with clusters and sheets of benign, reactive mesothelial cells. Some clusters of highly atypical cells suggestive of malignancy are seen. Also noted are few adipose tissue fragments intermixed with inflammatory exudate. The following immunohistochemical stains were performed which reveal Calretinin and CA125 positive strongly in the mesothelial and reactive mesothelial cells. ER stain shows few positive nuclei in the atypical clusters. Sections labeled H, I, and J are from the pelvic mass and reveal a section of the fallopian tube with transition from benign to invasive adenocarcinoma is identified. Also noted is portion of ovary with corpora albicancia are seen. Tumor appears to be arising in the fallopian tube. Sections K through L are from the right pelvic lymph nodes and reveal four lymph nodes negative for metastatic malignancy. The lymph nodes show noncaseating granulomas. Section of the left pelvic lymph nodes, N through R, reveal 15 nodes negative for metastatic malignancy. Section of the periaortic lymph nodes submitted as S through V reveal 10 nodes negative for metastatic malignancy. SR na Diagnosis FROZEN SECTION DIAGNOSIS I. Pelvic mass for frozen section FSA -- Mucinous neoplasm (GM/MM) FINAL DIAGNOSIS I. 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 Right pelvic lymph nodes -- Four nodes negative for metastatic malignancy (0/4) -- Noncaseating granulomas IV. Left pelvic lymph nodes -- 15 nodes negative for metastatic malignancy (0/15) V. Periaortic lymph nodes -- 10 nodes negative for metastatic malignancy (0/10) . Pelvic washings, cell block -- Atypical cells, suspicious for malignancy SURGICAL PATHOLOGY CANCER CASE SUMMARY SPECIMEN TYPE Fallopian tube, site unspecified Ovary and pelvic mass PROCEDURE Excision of pelvic mass and lymph node dissection LYMPH NODE SAMPLING Right and left pelvic nodes and periaortic TUMOR SITE Fallopian tube TUMOR SIZE 4.5 x 4 x 2.5, 4 x 2.5 x 1 cm HISTOLOGIC TYPE Endometrioid carcinoma Mucinous carcinoma HISTOLOGIC GRADE Grade II MICROSCOPIC TUMOR EXTENSION Through serosa Fallopian tube LYMPHOVASCULAR INVASION Not seen LYMPH NODES Right and left pelvic lymph nodes Number examined 19 Number involved 0 Periaortic lymph nodes Number examined - 10 Number involved - 0 PATHOLOGIC STAGING Primary tumor - pT1c (FIGO IC) Regional lymph nodes - pN0 Number examined 29 Number involved - 0 Distant metastasis - pMX ANCILLARY STUDIES Not done SR na Inker Machine na Pathologist Jemima Knapp MD Snomed. 10/08/2010 1156 <3> CPT code 46155l6(Calretinin,CA125,ER),[id number] MISCELLANEOUS SAMPLES / Unknown 10/07/2010 9:56 AM CDT 10/07/2010 9:56 AM CDT Historical Provider LAB - PATHOLOGY/C YTOLOGY ORDERABLES * CYTOLOGY NON-WELL SERVICES OPERATOR PANEL (10/07/2010 9:35 AM CDT) Only the most recent of2 resultswithin the time period is included. Result CASE NUMBER [id number] Comment: ORDERING PHYSICIAN ERIK DEJESUS SPECIMEN TYPE Pelvic Washings Date 10/08/2010 Physician Julio Dejesus Specimen Adequacy Satisfactory for evaluation. Cell Pathology See comment *Comment The smear reveals abundant polys, fibrin, mesothelial cells seen as single cells and in groups. Malignant cells are not seen. SR na DIAGNOSIS I. Pelvic washings, smear -- Negative for malignant cells SR na Snomed. 10/08/2010 1255 <1> Pathologist Jemima Knapp MD CPT code 48502 Gross Description 40 cc blood fluid received MISCELLANEOUS SAMPLES / Unknown 10/07/2010 9:35 AM CDT 10/08/2010 7:37 AM CDT Historical Provider LAB - PATHOLOGY/C YTOLOGY ORDERABLES * PATHOLOGY/GENETICS HISTORICAL-ONBASE (10/07/2010) 10/07/2010 Erik Dejesus MD LAB - CHEMISTRY ORD ERABLES Performing Organization Address [facility] Co de Phone Number [facility] * CROSSMATCH RBC ADD X2 (10/04/2010 9:30 AM CDT) Number of Units 2 [facility] BLOOD SPECIMEN / Unknown 10/04/2010 9:30 AM CDT 10/04/2010 1:51 PM CDT Erik Dejesus MD LAB - BLOOD BANK OR DERABLES Performing Organization Address [facility] de Phone Number [facility] [address] [place] [id number] * TYPE + SCREEN PANEL (10/04/2010 9:30 AM CDT) Only the most recent of2 resultswithin the time period is included. ABO Rh A Pos SEE BELOW [facility] Comment: Weak D testing is not performed at [facility] Antibody Screen Pos [facility] Antibody Identification Anti-Jka [facility] Previous History Check Done Historical blood type on record, type verification complete. [facility] BLOOD SPECIMEN / Unknown 10/04/2010 9:30 AM CDT 10/04/2010 11:08 AM CDT Erik Dejesus MD LAB - BLOOD BANK OR DERABLES Performing Organization Address [facility] Co de Phone Number [facility] [address] [place] [id number] * BLOOD TYPE VERIFICATION (10/01/2010 10:35 AM CDT) ABO Rh A Pos SEE BELOW [facility] Comment: Weak D testing is not performed at [facility] BLOOD SPECIMEN / Unknown 10/01/2010 10:35 AM CDT 10/01/2010 11:42 AM CDT Erik Dejesus MD LAB - BLOOD BANK OR DERABLES Performing Organization Address [facility] Co de Phone Number [facility] [address] [place] [address] * (ABNORMAL) CA 125 BLOOD (10/01/2010 10:30 AM CDT) CA 125 191.5(H) <30.21 U/ml [facility] BLOOD SPECIMEN / Unknown 10/01/2010 10:30 AM CDT 10/01/2010 11:33 AM CDT Erik Dejesus MD LAB - CHEMISTRY ORD ERABLES Performing Organization Address City/[facility] Co de Phone Number [facility] [address] [place] [address] * HGB HCT PANEL (10/01/2010 10:30 AM CDT) Hemoglobin 14.4 12.0 - 16.0 gm/dl [facility] Hematocrit 41.5 37.0 - 47.0 % [facility] BLOOD SPECIMEN / Unknown 10/01/2010 10:30 AM CDT 10/01/2010 11:33 AM CDT Erik Dejesus MD LAB - HEMATOLOGY OR DERABLES Performing Organization Address City/[facility] Co de Phone Number [facility] [address] [place] [address] Care Teams Preschool Lead Teacher Relationship Specialty Start Date End Date Rick Christianson DO [address] [place] [address] PCP - General 06/01/18
--- OUTSIDE RECORDS SUMMARY | 2024-09-24 08:04 | XMS_ITS | Referral Summary ---
Author Organization [facility] Address [address] [place] [address] Care Team Providers Care Cylinder Block Mechanic Name Role Phone MeghanAmanuelRickzahcary Gray DO Primary Care Provider Source Comments [facility],non-owned Affiliates and Associated Physician Practices is amultiple site organization consisting of ambulatory clinics and hospital sitesin [place], [place], [place] and [place]. This disclosure is being madepursuant to the Care Everywhere program and may not contain all information available regarding this patient. Last updated 18.[facility] [place] Allergies No known active allergies Medications * Be aware that medications may not be up to date on this document. Alwaysverify current medications with the patient. Medication Sig Dispensed Refills Start Date End Date Status carvedilol (COREG) 12.5 MG tablet Take 12.5 mg by mouth 2 times daily with breakfast and dinner. Active lisinopril-hydrochlor othiazide (PRINZIDE; ZESTORETIC) 20-12.5 MG tablet Take 1 Tab by mouth daily. Active levocetirizine (XYZAL) 5 MG tablet Take 5 mg by mouth daily. Active calcium citrate-vitamin D (CITRACAL PLUS D) 315-200 MG-UNIT tablet Take 1 Tab by mouth once daily. 10/01/2010 Active vitamin E (TOCOPHERYL) 400 UNIT capsule Take 400 Units by mouth 2 times daily. 10/01/2010 Active vitamin D, cholecalciferol, 1000 UNIT tablet Take 2,000 Units by mouth daily. Active triamcinolone (NASACORT AQ) 55 MCG/ACT nasal inhaler [place] 2 Sprays into each nostril daily. Active ibuprofen (MOTRIN) 600 MG tablet Take 1 Tab by mouth every 6 hours as needed for Pain. 30 Tab 1 10/31/2010 Active potassium chloride (KLOR-CON) 10 MEQ tablet Take 10 mEq by mouth 2 times daily. 2 TABS Active ibuprofen (MOTRIN) 600 MG tablet Take 1 Tab by mouth every 6 hours as needed for Pain. 30 Tab 0 04/14/2011 Active oxycodone-acetaminoph en (PERCOCET) 5-325 MG tablet Take 1-2 Tabs by mouth every 6 hours as needed for Pain. 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
--- OUTSIDE RECORDS SUMMARY | 2024-09-24 08:04 | XMS_ITS | Clinical Summary ---
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 Gender Identity Not on file Sexual Orientation Not on file Plan of Treatment Health Maintenance Due Date Last Done Comments Colorectal Cancer Screening Colonoscopy (10 Years) 1950 Hepatitis C 1967 Annual Medicare Wellness Visit 2014 Dexa Scan (General) 2014 Pneumococcal Vaccine: 65+ Years (1 of 1 - PCV) 2014 COVID-19 Vaccine ( - season) 2024 04/18/2021, 07/31/2020, 07/10/2020 Influenza Adult (#1) 2024 04/06/2021, 05/29/2020, 05/12/2019, Additional history exists DTaP, Tdap and Td Vaccines (2 - Td or Tdap) 06/21/2031 06/21/2021 Zoster Vaccines Completed 08/23/2018, 06/12/2018 RSV Immunization or 60+ Years Completed 03/31/2023 Meningococcal B Vaccine Aged Out No l onger eligible based on patient's age to complete this topic Meningococcal Vaccine Aged Out No jozef jeffery eligible based on patient's age to complete this topic RSV Immunizations Under 20 Months Aged Out No longer eligible based on patient's age to complete this topic Insurance MEDICARE [facility] Care Teams Supervisor Force Adjustment Relationship Specialty Start Date End Date Tay Enamorado MD [address] [place] [id number] PCP - General INTERNAL MEDICINE 06/15/24
--- OUTSIDE RECORDS SUMMARY | 2024-09-24 08:04 | XMS_ITS | Continuity of Care Document ---
Author Organization [facility] Address [address] [place] [address] Phone Care Team Providers Care Medical Collector Name Role Phone Rodrigues OD, Aidan Unavailable [...] Diagnoses Date Provider Providers Copied on Encounter [facility], [address] [place] [address] [address], [place], [place], [id number], tel:[phone] [facility] No Information Sep-1 8-200 7 Rodrigues OD Aidan. [address] , [address], [place], [place], [facility], [place]. tel:[phone] [facility], [address] [place] [address] [address], [place], [place], [id number], [place] tel:[phone] [facility] No Information Sep-0 6-200 7 Rodrigues OD Aidan. [address], [address], [place], [place], [facility], [place]. tel:[phone] [facility], [address] [place] [address] [address], [place], [place], [id number], [place] tel:[phone] [facility] No Information 0-200 7 Rodrigues OD Aidan. [address] , [address], [place], [address], [place]. tel:[phone] [facility], [address], [place], [place], [id number], [place] tel:[phone] [facility] No Information 6-200 7 Rodrigues OD Aidan. [address] [facility] , [address], [place], [address], [place]. tel:[phone] Family History Family Member Type Diagnosis Age At Onset No Information Payers Payer name Insurance type Covered green party ID Pearl vicentejune(s) [place] FEP BL [id number] Social History Type Description Quantity Date Captured [...]
--- OUTSIDE RECORDS SUMMARY | 2024-09-24 08:04 | XMS_ITS | Clinical Summary ---
Author Organization [facility] Address [address] [place] [address] Care Team Providers Care Loading Manager Name Role Phone MeghanAmanuelRickzachary Gray DO Primary Care Provider Source Comments [facility],non-owned Affiliates and Associated Physician Practices is amultiple site organization consisting of ambulatory clinics and hospital sitesin [place], [place], [place] and [place]. This disclosure is being madepursuant to the Care Everywhere program and may not contain all information available regarding this patient. Last updated 18.[facility] Allergies No known active allergies Medications * [...] triamcinolone (NASACORT AQ) 55 MCG/ACT nasal inhaler [place] 2 Sprays into each nostril daily. Active [...] 02/05/2016 11:53 AM CDT Plan of Treatment Health Maintenance Due Date Last Done Comments BONE DENSITY TESTING 1950 COLOGUARD (AGES 45-75) - COL ON CA SCREENING 1949 COLON MONITORING 1949 COLONOSCOPY - COLON CA SCREENING 1949 CT COLONOGRAPHY - COLON CA SCREENING 1950 Colorectal Cancer Screening 1949 FIT - COLON CA SCREENING 1949 FLEX SIG - COLON CA SCREENING 1949 LIPID TESTING 1950 MAMMOGRAM 1950 MEDICARE AWV 12 MONTHS 1950 HEPATITIS C SCREENING 02/17/1967 DTAP/TDAP/TD VACCINES (1 - Tdap) 02/22/1968 PNEUMOCOCCAL VACCINE 50+ (1 of 1 - PCV) 1999 ZOSTER VACCINE (1 of 2) 1999 Respiratory Syncytial Virus (RSV) Vaccine Pt: or over 60 yrs (1 - 1-dose 75+ series) 02/22/2024 COVID-19 VACCINE (1 - 2023-2 5 season) 2024 INFLUENZA VACCINE (#1) 2024 DEPRESSION SCREENING 07/20/2024 HEPATITIS B VACCINE Aged Out No longe r eligible based on patient's age to complete this topic HIB VACCINE Aged Out No longer eligi ble based on patient's age to complete this topic HPV VACCINE Aged Out No longer eligi ble based on patient's age to complete this topic MENINGOCOCCAL (Group B) VACCINE Aged Out No longer eligible based on patient's age to complete this topic MENINGOCOCCAL VACCINE Aged Out No jozef jeffery eligible based on patient's age to complete this topic Advance Directives Documents on File Type Date Recorded 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
[2024-09-24 08:43] LABS: Alanine Aminotransferase 18 U/L (6-35); Albumin Level 3.9 g/dL (3.5-5.1); Alkaline Phosphatase 57 U/L (38-126); Anion Gap 6 mmol/L (4-12); Aspartate Amino Transferase 23 U/L (14-36); Blood Urea Nitrogen 15 mg/dL (7-17); Calcium 9.1 mg/dL (8.4-10.2); Carbon Dioxide 31 mmol/L (22-30); Chloride 102 mmol/L (98-107); Cholesterol 152 mg/dL (0-200); Estimated Glomerular Filt Rate > 60; Glucose 128 mg/dL (65-110); HDL Direct 72 mg/dL; Potassium 3.8 mmol/L (3.4-5.0); Sodium 139 mmol/L (137-145); Triglycerides 83 mg/dL (<150)
[2024-09-24 08:53] LABS: LDL Cholesterol Direct 63 mg/dL
[2024-09-24 09:43] LABS: Hemoglobin A1C 6.1 % (<5.7)
== END 2024-09-24 08:02 | disposition home or self-care (01) ==
LOC: ANHLAB 08:02
PROVIDERS: PCP Internal Medicine; Visit Provider Internal Medicine
DX: I10 Essential (primary) hypertension (principal); R73.03 Prediabetes; E78.2 Mixed hyperlipidemia
CPT/HCPCS: 36415; 80053; 80061; 83036

== ENCOUNTER 2024-09-29 11:46 | Outpatient (CLI) | payer MEDICARE, BC, SELFPAY ==
--- NOTE | 2024-09-29 13:02 | ECG_ITS ---
Test Date: 2024-09-29 13:20:34 Measurements Intervals [place] Rate: 60 P: 68 NE: 183 QRS: 33 QRSD: 108 T: 0 QT: 410 QTc: 411 Interpretive Statements SINUS RHYTHM LOW QRS VOLTAGE IN PRECORDIAL LEADS [QRS DEFLECTION < 1.0 mV IN CHEST LEADS] INCOMPLETE RIGHT BUNDLE BRANCH BLOCK NONSPECIFIC ST AND T WAVE ABNORMALITY WARNING: DATA QUALITY MAY AFFECT INTERPRETATION No previous ECG available for comparison Electronically Signed On 09-30-2024 16:40:18 CDT by Alejandra Rivas M.D.
[2024-09-29 13:38] LABS: Basophils Percent Auto 0.5 % (0.2-1.2); Eosinophils Absolute Auto 0.1 K/mm3 (0-0.3); Hematocrit 41.1 % (37.0-47.0); Hemoglobin 13.4 g/dL (12.0-15.0); Immature Granulocyte Absolute 0.02 K/mm3 (0.00-0.031); Immature Granulocyte Percent A 0.4 % (0-0.5); Lymphocytes Absolute Auto 1.68 K/mm3 (0.9-3.2); Lymphocytes Percent Auto 29.9 % (18.3-44.2); Mean Corpuscular HGB Conc 32.6 g/dl (32-36); Mean Corpuscular Hemoglobin 31.2 pg (26-34); Mean Corpuscular Volume 95.8 fl (80-100); Mean Platelet Volume 10.7 fl (7.4-10.4); Monocytes Absolute Auto 0.9 K/mm3 (0.1-0.6); Monocytes Percent Auto 15.5 % (2.6-8.5); Neutrophils Absolute Auto 2.9 K/mm3 (1.3-6.7); Neutrophils Percent Auto 51.7 % (45.5-73.1); Platelet Count Result 190 k/mm3 (150-375); Red Blood Count 4.29 M/mm3 (4.2-5.4); White Blood Count 5.6 K/mm3 (4.5-10.0)
--- OUTSIDE RECORDS SUMMARY | 2024-09-29 13:40 | XMS_ITS | Patient Health Summary ---
Author Organization [facility] Address [address] [place] [address] Care Team Providers Care Turntable Worker Name Role Phone Rick Christianson Marina SADLER Primary Care Provider Note from [facility],non-owned Affiliates and Associated Physician Practices is amultiple site organization consisting of ambulatory clinics and hospital sitesin [place], [place], [place] and [place]. This disclosure is being madepursuant to the Care Everywhere program and may not contain all informatio navailable regarding this patient. Last updated 18.[facility] Allergies No known active allergies Medications [...] triamcinolone (NASACORT AQ) 55 MCG/ACT nasal inhaler [place] 2 Sprays into each nostril daily. * [...] 10/07/2010) * FROZEN SECTION(Performed 10/07/2010) * CYTOLOGY NON-SYRUP MAKER COOK PANEL(Performed 10/07/2010) * CYTOLOGY NON-SYRUP MAKER COOK PANEL(Performed 10/07/2010) * PATHOLOGY/GENETICS HISTORICAL-ONBASE(Performed 10/07/2010) * [...] Historical Provider LAB - CHEMISTRY O RDERABLES [facility] [address] * CARDIAC RHYTHM STRIP ORDER (04/18/2011 8:24 AM CDT) Only the most recent of3 resultswithin the time period is included. Narrative Transcriptions Document, Scanned - 04/17/2011 3:47 PM CDT Document, Scanned - 04/18/2011 8:24 AM CDT Scanned Document CARDIAC SERVICES ORD ERABLES * (ABNORMAL) CBC W AUTO DIFFERENTIAL (12/31/2010 8:31 AM CDT) WBC 7.8 4.0 - 10.0 K/[facility] RBC 3.75(L) 3.80 - 5.80 M/[facility] Hemoglobin 11.8(L) 12.0 - 16.0 gm/dl [facility] Hematocrit 33.8(L) 37.0 - 47.0 % [facility] MCV 90.1 80.0 - 100.0 fl [facility] MCH 31.5 26.0 - 34.0 pg [facility] MCHC 34.9 31.0 - 37.0 gm/dl [facility] Platelet Count 163 150 - 400 K/[facility] RDW 13.2 11.5 - 14.5 % [facility] Granulocytes % 88.5(H) 50 - 70 % [facility] Lymphocytes % 10.1(L) 20 - 40 % [facility] Monocytes % 1.1 0 - 12 % [facility] Eosinophils % 0.0 0 - 5 % [facility] Basophils % 0.0 0 - 2 % [facility] Granulocytes Absolute 6.93 2.00 - 7.00 x1000/cmm [facility] Lymphocytes Absolute 0.79(L) 0.80 - 4.00 x1000/cmm [facility] Monocytes Absolute 0.09 0.00 - 1.20 x1000/cmm [facility] Eosinophils Absolute 0.00 0.00 - 0.50 x1000/cmm [facility] Basophils Absolute 0.00 0.00 - 0.20 x1000/cmm [facility] BLOOD SPECIMEN / Unknown 12/31/2010 8:31 AM CDT 12/31/2010 9:03 AM CDT Erik Dejesus MD LAB - HEMATOLOGY OR DERABLES Performing Organization Address City/State/[facility] Co de Phone Number [facility] [address] [place] [address] * XR CHEST 1VW PORTABLE (10/31/2010 12:35 [...] CBC W/O DIFFERENTIAL (10/08/2010 5:40 AM CDT) [facility] WBC 14.3(H) 4.0 - 10.0 K/[facility] RBC 3.58(L) 3.80 - 5.80 M/[facility] Hemoglobin 11.1(DL) 12.0 - 16.0 gm/dl [facility] Hematocrit 32.6(DL) 37.0 - 47.0 % [facility] MCV 91.1 80.0 - 100.0 fl [facility] MCH 31.0 26.0 - 34.0 pg [facility] MCHC 34.0 31.0 - 37.0 gm/dl [facility] RDW 12.6 11.5 - 14.5 % [facility] Platelet Count 174 150 - 400 K/[facility] BLOOD SPECIMEN / Unknown 10/08/2010 5:40 AM CDT 10/08/2010 5:55 AM CDT Ross Padgett MD LAB - HEMATOLOGY ORDERABLES [facility] [address] [place] [address] * (ABNORMAL) BASIC METABOLIC PANEL (CALCIUM TOTAL) (10/08/2010 5:40 AM CDT) Only the most recent of2 resultswithin the time period is included. Sodium 135(L) 137 - 145 mmol/L [facility] Potassium 3.6 3.6 - 5.0 mmol/L [facility] Chloride 106 98 - 107 mmol/L [facility] BUN 12 7 - 17 mg/dl [facility] Creatinine 0.91 0.52 - 1.04 mg/dl [facility] Glucose 108(H) 65 - 105 mg/dl [facility] CO2 28 22 - 30 mmol/L [facility] Calcium 7.3(DL) 8.4 - 10.2 mg/dl [facility] eGFR by MDRD 63 >60 mL/min/1.7 3m2 [facility] Comment eGFR [facility] Comment: The eGFR does not apply to patients who are younger than 18 or older than 70. BLOOD SPECIMEN / Unknown 10/08/2010 5:40 AM CDT 10/08/2010 5:55 AM CDT Ross Padgett MD LAB - CHEMISTRY ORDERABLES Performing Organization Address City/State/[facility] Co de Phone Number [facility] [address] [place] [address] * FROZEN SECTION (10/07/2010 9:56 AM CDT) [...] similar throughout the entire specimen. A single student services representative section is submitted for frozen section in cassette FSA. Transcription Coordinator sections are submitted in cassettes C-G. The next specimen is labeled No. 2 pelvic mass and consists of pink- bob and yellow fibrofatty tissue measuring approximately 4 x 2.5 x 1.0 cm in aggregate. There is a tubular structure contained in this specimen grossly appearing similar to a fallopian tube. There are a couple of firm areas measuring approximately 3-4 mm in diameter. Transcription Coordinator sections are submitted in cassettes H-J. The next specimen is labeled No. 3 right pelvic lymph nodes and consists of approximately 5 x 4.5 x 1.5 cm of yellow-pink fibrofatty tissue and lymph nodes. Multiple lymph nodes are found. The largest is approximately 2 x 1.3 x 1 cm, and appears mostly fatty replaced. Sections are submitted as follows K is two student services representative sections of the largest node. L is two bisected nodes. M is one bisected node. The next specimen is labeled No. 4 left pelvic lymph node and consists of multiple pink-bob and yellow fragments of fibrofatty tissue and [...] moderately-differentiated nature. Tumor shows areas of necrosis, frfg-ue-zdyy gland formation. The majority of the tumor [...] pMX ANCILLARY STUDIES Not done SR na Motor Polarizer na Pathologist Jemima Knapp MD Snomed. 10/08/2010 1156 <3> CPT code 44197b5(Calretinin,CA125,ER),99622,96773m0,64600,80619 MISCELLANEOUS SAMPLES / Unknown 10/07/2010 9:56 AM CDT 10/07/2010 9:56 AM CDT Historical Provider LAB - PATHOLOGY/C YTOLOGY ORDERABLES * CYTOLOGY NON-SYRUP MAKER COOK PANEL (10/07/2010 9:35 AM CDT) Only the [...] <1> Pathologist Jemima Knapp MD CPT code 40943 Gross Description 40 cc blood fluid received MISCELLANEOUS SAMPLES / Unknown 10/07/2010 9:35 AM CDT 10/08/2010 7:37 AM CDT Historical Provider LAB - PATHOLOGY/C YTOLOGY ORDERABLES * PATHOLOGY/GENETICS HISTORICAL-ONBASE (10/07/2010) 10/07/2010 Erik Dejesus MD LAB - CHEMISTRY ORD ERABLES Performing Organization Address [facility] Co de Phone Number [facility] * CROSSMATCH RBC ADD X2 (10/04/2010 9:30 AM CDT) Number of Units 2 [facility] BLOOD SPECIMEN / Unknown 10/04/2010 9:30 AM CDT 10/04/2010 1:51 PM CDT Erik Dejesus MD LAB - BLOOD BANK OR DERABLES Performing Organization Address [facility] de Phone Number [facility] [address] [place] [address] * TYPE + SCREEN PANEL (10/04/2010 9:30 AM CDT) Only the most recent of2 resultswithin the time period is included. ABO Rh A Pos SEE BELOW [facility] Comment: Weak D testing is not performed at [facility] Antibody Screen Pos [facility] Antibody Identification Anti-Jka [facility] Previous History Check Done Historical blood type on record, type verification complete. [facility] BLOOD SPECIMEN / Unknown 10/04/2010 9:30 AM CDT 10/04/2010 11:08 AM CDT Erik Dejesus MD LAB - BLOOD BANK OR DERABLES Performing Organization Address [facility] Co de Phone Number [facility] [address] [place] [address] * BLOOD TYPE VERIFICATION (10/01/2010 10:35 AM CDT) ABO Rh A Pos SEE BELOW [facility] Comment: Weak D testing is not performed at [facility] BLOOD SPECIMEN / Unknown 10/01/2010 10:35 AM CDT 10/01/2010 11:42 AM CDT Erik Dejesus MD LAB - BLOOD BANK OR DERABLES Performing Organization Address [facility] Co de Phone Number [facility] [address] [place] [address] * (ABNORMAL) CA 125 BLOOD (10/01/2010 10:30 AM CDT) CA 125 191.5(H) <30.21 U/ml [facility] BLOOD SPECIMEN / Unknown 10/01/2010 10:30 AM CDT 10/01/2010 11:33 AM CDT Erik Dejesus MD LAB - CHEMISTRY ORD ERABLES Performing Organization Address City/[facility] Co de Phone Number [facility] [address] [place] [address] * HGB HCT PANEL (10/01/2010 10:30 AM CDT) Hemoglobin 14.4 12.0 - 16.0 gm/dl [facility] Hematocrit 41.5 37.0 - 47.0 % [facility] BLOOD SPECIMEN / Unknown 10/01/2010 10:30 AM CDT 10/01/2010 11:33 AM CDT Erik Dejesus MD LAB - HEMATOLOGY OR DERABLES Performing Organization Address City/[facility] Co de Phone Number [facility] [address] [place] [address] Care Teams Turntable Worker Relationship Specialty Start Date End Date Rick Christianson DO [address] [place] [address] PCP - General 06/01/18
--- OUTSIDE RECORDS SUMMARY | 2024-09-29 13:40 | XMS_ITS | Clinical Summary ---
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
--- OUTSIDE RECORDS SUMMARY | 2024-09-29 13:40 | XMS_ITS | Continuity of Care Document ---
Author Organization [facility] Address [address] [place] [address] Phone Care Team Providers Care Tipple Engineer Name Role Phone Rodrigues OD, Aidan [...] Diagnoses Date Provider Providers Copied on Encounter [facility], [address] [place] [address] [address], [place], [place], [id number], tel:[phone] SEC [facility] No Information Sep-1 8-200 7 Rodrigues OD Aidan. [address] , [address], [place], [place], [facility], [place]. tel:[phone] [facility], [id number] [place] [address] [address], [place], [place], [id number], [place] tel:[phone] SEC [facility] No Information Sep-0 6-200 7 Rodrigues OD Aidan. [address], [address], [place], [place], [facility], [place]. tel:[phone] [facility], [address] [place] [address] [address], [place], [place], [id number], [place] tel:[phone] SEC [facility] No Information 0-200 7 Rodrigues OD Aidan. [address] , [address], [place], [address], [place]. tel:[phone] [facility], [address], [place], [place], [id number], [place] tel:[phone] SEC [facility] No Information 6-200 7 Rodrigues OD Aidan. [address] [facility] , [address], [place], [address], [place]. tel:[phone] Family History Family Member Type Diagnosis Age At Onset No Information Payers Payer name Insurance type Covered alliance party ID Pearl vicentejune(s) BCBS [place] FEP BL [id number] Social History Type Description Quantity Date Captured [...]
--- OUTSIDE RECORDS SUMMARY | 2024-09-29 13:41 | XMS_ITS | Clinical Summary ---
Author Organization [facility] Address [address] [place] [address] Care Team Providers Care Software Security Architect Name Role Phone MeghanAmanuelRickzachary Gray DO Primary Care Provider Source Comments [facility],non-owned Affiliates and Associated Physician Practices is amultiple site organization consisting of ambulatory clinics and hospital sitesin [place], [place], [place] and [place]. This disclosure is being madepursuant to the Care Everywhere program and may not contain all information available regarding this patient. Last updated 18.[facility] [employer] Allergies No known active allergies Medications * [...] triamcinolone (NASACORT AQ) 55 MCG/ACT nasal inhaler [place] 2 Sprays into each nostril daily. 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
--- OUTSIDE RECORDS SUMMARY | 2024-09-29 13:41 | XMS_ITS | Referral Summary ---
Author Organization [facility] Address [address] [place] [address] Care Team Providers Care Posting Specialist Name Role Phone MeghanAmanuelRickzachary Gray DO Primary Care Provider Source Comments [facility],non-owned Affiliates and Associated Physician Practices is amultiple site organization consisting of ambulatory clinics and hospital sitesin [place], [place], [place] and [place]. This disclosure is being madepursuant to the Care Everywhere program and may not contain all information available regarding this patient. Last updated 18.[facility] [employer] Allergies No known active allergies Medications * [...] triamcinolone (NASACORT AQ) 55 MCG/ACT nasal inhaler [place] 2 Sprays into each nostril daily. 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
[2024-09-29 13:43] LABS: Urine Cotinine NEGATIVE
== END 2024-09-29 11:47 | disposition home or self-care (01) ==
PROVIDERS: PCP Internal Medicine; Visit Provider Orthopaedic Surgery
DX: Z01.818 Encounter for other preprocedural examination (principal); M17.0 Bilateral primary osteoarthritis of knee; R94.31 Abnormal electrocardiogram [ECG] [EKG]
CPT/HCPCS: 80307; 85025; 87081; 93005

== ENCOUNTER 2024-10-20 00:37 | Day surgery (SDC) | payer MEDICARE, BC, SELFPAY ==
--- NOTE | 2024-09-29 11:47 | PC.NURSE ---
Report to the Outpatient Waiting Room, entrance under the green pavilion located off [facility], at time _6 am on date _10/20/24 . Planned Procedure Time: _7:30 am .? Time changes happen often and if your time is changed the preop area will call you the afternoon before. - You and your visitor will be asked to self-screen and do not enter if you have any COVID symptoms. Please call surgeon if you need to reschedule. - A mask is optional within the hospital at this time. Patients may have clear liquids (water, carbonated beverages, clear teas, apple juice) until 3 hours prior to surgery ( 4:30 am) with a maximum of 20 ounces. - No food from midnight until time of surgery and no smoking, or chewing tobacco (or any form of nicotine). No chewing gum, candy or mints. - Take only the following medications with a SIP of water on the morning of surgery: __CARVEDILOL,HYDRALAZINE DO NOT STOP ANY OF YOUR OTHER PRESCRIPTION MEDICATIONS PRIOR TO SURGERY EXCEPT THE FOLLOWING Hold all vitamins and supplements for 3 days per anesthesiologist.last dose 10/16/24 Medications to discontinue per physician Date to take last dose CELECOXIB OK TO CONTINUE PER DR TERRY Please no make-up, nail upper sorbian, hairspray, perfume, deodorant, or body powder the day of surgery.? No jewelry (including any body piercings) or valuables the day of surgery, leave them at home.? Please take a shower or bath the night before, or the morning of, surgery with an antibacterial soap.? Wear comfortable, loose fitting clothing.? Children are encouraged to wear pajamas. - Jewelry must be removed prior to entering the operating room.? Rings and piercings that are not removed may be cut off. - The hospital will not accept responsibility for valuables.? - Please leave all valuables, including medications, at home the day of surgery. If you are going home after surgery, a licensed armor reconnaissance vehicle driver must drive you home.? - NO public transportation without another adult if you receive anesthesia. - We recommend that an adult stay with you for 24 hours following discharge. - We also recommend that you do not drive, make important decision, drink alcoholic beverages, or take any drugs that were not prescribed by your health care provider for at least 24 hours after your discharge time. Follow any additional instructions given to you from your surgeon. verbal and written instructions given to __PATIENT and asked if any additional questions and then verbalized understanding. Patient advised to call surgeon office or pre surgery nurse liaison [phone] if any additional questions.
[2024-09-29 12:05] VITALS: BMI 34.0
[2024-09-29 12:54] VITALS: BP 138/68; PULSE 61; RESP 18; TEMP 36.7; O2SAT 99
--- NOTE | 2024-10-19 12:34 | P.HP_ITS ---
H&P: HPI History of Present Illness Date/Time: 10/19/24 12:34 Chief Complaint: Bilateral knee DJD Narrative: 74-year-old female who presents today for a right total knee arthroplasty with cortisone injection left knee. Patient has been having symptoms in both knees for multiple years. She has been taking Celebrex 100 mg daily. She has also had cortisone injections in the past last ones were in May of last year which only helped minimally. Patient has severe lateral compartment osteoarthritis in both knees. Patient feels that his she is having significant pain and disability on a daily basis due to the knees that she would rather proceed with total knee arthroplasty at this point rather than continue nonsurgical treatment Review of Systems Review of Systems: All systems reviewed & are unremarkable except as noted in HPI and below PMFSH Past Medical History Medical History (Updated 09/27/24 @ 09:07 by Ana Laura Gutierrez [facility]) CAD (coronary artery disease) Blood in stool Encounter for routine adult health examination with abnormal findings Trigger finger of both hands Cataracts, bilateral Breast cancer screening BMI 31.0-31.9,adult Pure hypercholesterolemia Other fatigue Generalized abdominal pain Cough Left elbow pain Hearing loss BMI 32.0-32.9,adult Encounter for Medicare annual wellness exam Mitral valve regurgitation Contusion Fatty liver Follow up BMI 33.0-33.9,adult Family history of coronary artery disease Hypersomnia Mixed hyperlipidemia Dry mouth Diastolic dysfunction Follow up DJD (degenerative joint disease) of knee Pre-diabetes Encounter for routine adult health examination without abnormal findings RBBB (right bundle branch block) Colon cancer screening Encounter to establish care On watermaster drug therapy BMI 34.0-34.9,adult AK (actinic keratosis) Acute low back pain with sciatica MOORE (dyspnea on exertion) Essential hypertension Myalgia Surgical History Surgical History History of knee surgery S/P cataract surgery History of right knee surgery History of left knee surgery History of appendectomy History of total hysterectomy Family History Family History Father Acute myocardial infarction Mother Family history of cardiovascular disease Family history of arthritis Family history of heart disease in male family member before age 55 Sibling Pulmonary embolism Other Family history of malignant neoplasm Hypertension Social History Social History (Reviewed 09/27/24 @ 08:59 by Ana Laura Gutierrez [facility]) Smoking status: Never smoker Second hand tobacco smoke exposure: Yes Additional smoking assessment comments: DENIES ANY FORM OF TOBACCO Alcohol intake: current Drinks per week: 5 Alcohol use details: TWO DRINKS PER MONTH Substance use: never Substance use type: does not use Do You Feel Safe in your Home?: Yes Lack of Transportation: No Lack of Food: Never True Current Housing: I Have Housing Concerned About Future Housing: No Difficulty Paying Gas/Electric Bills: No Difficulty Paying for Meds: No Currently Unemployed: No Education: Associate Degree Difficulty w/ Childcare or Family Care: No Living arrangements: with family Additional living arrangements comments: Son 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 Gender identity (if verbalized by the patient): Female Spiritual care concerns: No Meds Home Medications and Allergies Home Medications ?Medication ?Instructions ?Recorded ?Confirmed ?Type cholecalciferol (vitamin D3) 50 2,000 unit PO DAILY 07/21/19 09/29/24 History mcg (2,000 unit) tablet coenzyme Q10 75 mg capsule (Ultra 100 mg PO DAILY 08/23/20 09/29/24 History CoQ10) valacyclovir 500 mg tablet 500 mg PO TID PRN fever blisters 07/31/23 09/29/24 Rx (Valtrex) #25 tabs magnesium oxide 400 mg (241.3 mg See Rx Instructions .Route 12/17/23 09/29/24 Rx magnesium) tablet .COMPLEX #90 tabs potassium chloride 10 mEq See Rx Instructions .Route 04/11/24 09/29/24 Rx tablet,extended release .COMPLEX #180 tabs lovastatin 10 mg tablet See Rx Instructions .Route 05/16/24 09/29/24 Rx .COMPLEX #90 tabs carvedilol 25 mg tablet 25 mg PO Q12H #180 tabs 06/09/24 09/29/24 Rx cranberry 500 mg capsule 2,500 mg PO BID 08/04/24 09/29/24 History hydralazine 25 mg tablet 25 mg PO BID #180 tabs 08/04/24 09/29/24 Rx celecoxib 100 mg capsule (Celebrex) 100 mg PO DAILY #30 caps 09/20/24 09/29/24 Rx hydrochlorothiazide 25 mg tablet 25 mg PO DAILY #90 tabs 03/13/25 03/13/25 Rx irbesartan 300 mg tablet 300 mg PO DAILY #90 tabs 09/29/24 09/29/24 Rx Allergies Allergy/AdvReac Type Severity Reaction Status Date / Time No Known Allergies Allergy Verified 09/29/24 12:06 Exam Narrative: 74-year-old female very alert pleasant. She is 5 ft 6 and 203 lb BMI is 32.8 right knee range of motion is from 5-140 degrees. Moderate effusion. She has normal sensation light touch to both lower extremities. She has mild lateral pseudolaxity with varus stress. Her valgus deformity does not fully correct with varus stress. Hip range of motion on the right is full without discomfort, negative Stinchfield maneuver. 2+ posterior tibial artery pulse palpable. She has normal muscle strength in all muscle groups right lower extremity. She walks with a slight limp. Resp: Auscultation: clear to auscultation bilaterally Cardio: Rate: regular rate Rhythm: regular rhythm Assessment and Plan Assessment and plan (1) Primary localized osteoarthritis of both knees: Code(s): M17.0 - Bilateral primary osteoarthritis of knee Status: Acute Assessment and Plan: 74-year-old female who has severe lateral compartment osteoarthritis in both knees. Patient is having pain on a regular basis and it is affecting her daily lifestyle. She has tried anti-inflammatories as well as cortisone injection without significant improvement of her symptoms. She feels at this point she is ready proceed with surgery on her right knee. Surgical procedures well as the risks and complications were discussed in detail and all questions were answered and we will proceed. Patient will continue with her Celebrex to the time surgery. She should avoid aspirin 1 week prior to surgery. She will see her primary care doctor for pre-surgical clearance. Her nasal swab was negative. Hemoglobin 13.4 platelets were 190. Chem panel was all within normal limits c reatinine 0.75
[2024-10-20] VITALS (15 sets, daily range): BP systolic 100–156; BP diastolic 45–79; PULSE 62–77; RESP 12–18; TEMP 36.4–36.7; O2SAT 95–100
--- NOTE | ~2024-10-20 | XR_ITS ---
EXAMINATION: [id number] DATE: 10/20/2024 13:15 CDT INDICATION: Right knee arthroplasty TECHNIQUE: 2 views right knee FINDINGS: There is a right total knee arthroplasty in expected position. Subcutaneous gas with fluid and air in the joint are consistent with recent surgery. No evidence of periprosthetic fracture. IMPRESSION: 1. Recent right total knee arthroplasty. Reviewed, dictated and finalized at location A.
--- OUTSIDE RECORDS SUMMARY | 2024-10-20 00:40 | XMS_ITS | Clinical Summary ---
Author Organization [facility] Address [address] [place] [address] Care Team Providers Care Consulting It Architect Name Role Phone MeghanAmanuelRickzachary Gray DO Primary Care Provider [phone] Source Comments [facility],non-owned Affiliates and Associated Physician Practices is amultiple site organization consisting of ambulatory clinics and hospital sitesin [place], [place], [place] and [place]. This disclosure is being madepursuant to the Care Everywhere program and may not contain all information available regarding this patient. Last updated 18.[facility] [employer] Allergies No known active allergies Medications * [...] triamcinolone (NASACORT AQ) 55 MCG/ACT nasal inhaler [place] 2 Sprays into each nostril daily. 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
--- OUTSIDE RECORDS SUMMARY | 2024-10-20 00:40 | XMS_ITS | Continuity of Care Document ---
Author Organization [facility] Address [address] [place] [address] Phone Care Team Providers Care Software Developer Manager Name Role Phone Rodrigues OD, Aidan [...] Diagnoses Date Provider Providers Copied on Encounter [facility], [address] [place] [address] [address], [place], [place], [id number], tel:[phone] [facility] No Information Sep-1 8-200 7 Rodrigues OD Aidan. [address], [place], [place], [facility], [place]. tel:[phone] [facility], [id number] [place] [address] [address], [place], [place], [id number], [place] tel:[phone] [facility] No Information Sep-0 6-200 7 Rodrigues OD Aidan. [address], [place], [place], [facility], [place]. tel:[phone] [facility], [address] [place] [address] [address], [place], [place], [id number], [place] tel:[phone] [facility] No Information 0-200 7 Rodrigues OD Aidan. [address], [place], [address], [place]. tel:[phone] [facility], [address], [place], [place], [id number], [place] tel:[phone] [facility] No Information 6-200 7 Rodrigues OD Aidan. [address], [place], [address], [place]. tel:[phone] Family History Family Member Type Diagnosis Age At Onset No Information Payers Payer name Insurance type Covered democrat ID Pearl vicentejune(s) BCBS [place] FEP BL [id number] Social History Type Description Quantity Date Captured [...]
--- OUTSIDE RECORDS SUMMARY | 2024-10-20 00:40 | XMS_ITS | Clinical Summary ---
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 Gender Identity Not on file Sexual Orientation Not on file Plan of Treatment Health Maintenance Due Date Last Done Comments Colorectal Cancer Screening Colonoscopy (10 Years) 1949 Hepatitis C 1968 Annual Medicare Wellness Visit 2014 Dexa Scan (General) 2014 Pneumococcal Vaccine: 65+ Years (1 of 1 - PCV) 2014 COVID-19 Vaccine (2023-2 5 season) 2024 04/18/2021, 07/31/2020, 07/10/2020 DTaP, Tdap and Td Vaccines ( 2 - Td or Tdap) 06/21/2031 06/21/2021 Zoster Vaccines Completed 08/23/2018, 06/12/2018 RSV Immunization or 60+ Years Completed 03/31/2023 Meningococcal B Vaccine Aged Out No l onger eligible based on patient's age to complete this topic Meningococcal Vaccine Aged Out No jozef jeffery eligible based on patient's age to complete this topic RSV Immunizations Under 20 Months Aged Out No longer eligible b ased on patient's age to complete this topic Insurance MEDICARE [facility] Care Teams Strip Winder Relationship Specialty Start Date End Date Tay Enamorado MD [address] [place] [address] PCP - General INTERNAL MEDICINE 06/15/24
[2024-10-20] MEDS: LACTATED RINGERS 1,000 ML 30 ML IV CONT ×2 (06:30→11:53)
[2024-10-20] MEDS: VANCOMYCIN 1,500 MG/NS 500 ML BAG 250 MG IVPB (06:45)
[2024-10-20] MEDS: TRANEXAMIC ACID 1,000MG/ISO100 1,000 MG/100 ML BAG 200 MG IVPB (07:00)
--- NOTE | 2024-10-20 07:06 | P.PNAN_ITS ---
Anes - Initial Pre Proc Eval Procedure: Operation Date: 10/20/24 07:30 Proposed Procedures p Right Total Knee Arthroplasty, Cortisone Injection Left Knee - Alvaro Hunt MD Date/Time: 10/20/24 07:06 Surgeon: Alvaro Hunt MD Pre Op Diagnosis: severe OA bilat knees Patient Data Age: 74 Gender: F Height: 1.65 m Weight: 92.8 kg Last Vital Signs Temp 98.0 F 09/29/24 12:54 Pulse 61 09/29/24 12:54 Resp 18 09/29/24 12:54 BP 138/68 09/29/24 12:54 Pulse Ox 99 09/29/24 12:54 O2 Del Method Room Air 09/29/24 12:54 Allergies Allergy/AdvReac Type Severity Reaction Status Date / Time No Known Allergies Allergy Verified 09/29/24 12:06 Home Medications ?Medication ?Instructions ?Recorded ?Confirmed ?Type cholecalciferol (vitamin D3) 50 2,000 unit PO DAILY 07/21/19 09/29/24 History mcg (2,000 unit) tablet coenzyme Q10 75 mg capsule (Ultra 100 mg PO DAILY 08/23/20 09/29/24 History CoQ10) valacyclovir 500 mg tablet 500 mg PO TID PRN fever blisters 07/31/23 09/29/24 Rx (Valtrex) #25 tabs magnesium oxide 400 mg (241.3 mg See Rx Instructions .Route 12/17/23 09/29/24 Rx magnesium) tablet .COMPLEX #90 tabs potassium chloride 10 mEq See Rx Instructions .Route 04/11/24 09/29/24 Rx tablet,extended release .COMPLEX #180 tabs lovastatin 10 mg tablet See Rx Instructions .Route 05/16/24 09/29/24 Rx .COMPLEX #90 tabs carvedilol 25 mg tablet 25 mg PO Q12H #180 tabs 06/09/24 09/29/24 Rx cranberry 500 mg capsule 2,500 mg PO BID 08/04/24 09/29/24 History hydralazine 25 mg tablet 25 mg PO BID #180 tabs 08/04/24 09/29/24 Rx celecoxib 100 mg capsule (Celebrex) 100 mg PO DAILY #30 caps 09/20/24 09/29/24 Rx hydrochlorothiazide 25 mg tablet 25 mg PO DAILY #90 tabs 09/29/24 09/29/24 Rx irbesartan 300 mg tablet 300 mg PO DAILY #90 tabs 09/29/24 09/29/24 Rx Patient hx anesthesia problems: none Family hx anesthesia problems: none Results Review: All pre-operative results and documents have been reviewed as part of the pre- operative evaluation. [facility] Past Medical History Medical History CAD (coronary artery disease) Blood in stool Encounter for routine adult health examination with abnormal findings Trigger finger of both hands Cataracts, bilateral Breast cancer screening BMI 31.0-31.9,adult Pure hypercholesterolemia Other fatigue Generalized abdominal pain Cough Left elbow pain Hearing loss BMI 32.0-32.9,adult Encounter for Medicare annual wellness exam Mitral valve regurgitation Contusion Fatty liver Follow up BMI 33.0-33.9,adult Family history of coronary artery disease Hypersomnia Mixed hyperlipidemia Dry mouth Diastolic dysfunction Follow up DJD (degenerative joint disease) of knee Pre-diabetes Encounter for routine adult health examination without abnormal findings RBBB (right bundle branch block) Colon cancer screening Encounter to establish care On meterman drug therapy BMI 34.0-34.9,adult AK (actinic keratosis) Acute low back pain with sciatica MOORE (dyspnea on exertion) Essential hypertension Myalgia Surgical History Surgical History History of knee surgery S/P cataract surgery History of right knee surgery History of left knee surgery History of appendectomy History of total hysterectomy Family History Family History Father Acute myocardial infarction Mother Family history of cardiovascular disease Family history of arthritis Family history of heart disease in male family member before age 55 Sibling Pulmonary embolism Other Family history of malignant neoplasm Hypertension Social History Social History Smoking status: Never smoker Second hand tobacco smoke exposure: Yes Additional smoking assessment comments: DENIES ANY FORM OF TOBACCO Alcohol intake: current Drinks per week: 5 Alcohol use details: TWO DRINKS PER MONTH Substance use: never Substance use type: does not use Do You Feel Safe in your Home?: Yes Lack of Transportation: No Lack of Food: Never True Current Housing: I Have Housing Concerned About Future Housing: No Difficulty Paying Gas/Electric Bills: No Difficulty Paying for Meds: No Currently Unemployed: No Education: Associate Degree Difficulty w/ Childcare or Family Care: No Living arrangements: with family Additional living arrangements comments: Son Additional occupation/education comments: [employer] Gender identity (if verbalized by the patient): Female Spiritual care concerns: No Anes - Eval Final PreProcedure Day of Procedure 10/20/24 07:06 Patient weight: obese Lungs: normal air movement Airway: Mallampati scale class II Neurological: alert and oriented Last oral intake: >/= 8 hours ASA classification: III Emergent: no Anesthetic plan: proceed Anesthesia type and monitoring: general ETT and standard monitoring Results Review: All pre-operative results and documents have been reviewed as part of the pre- operative evaluation. HTN, hyperlipidemia, CAD w Ca score noted, Dr Snow note reviewed and pt cleared for surgery today per pt. ECHO 2022 w nml LVEF, diastolic dysfunction. Informed Consent: The patient's anesthetic plan and its attendant risks and benefits were discussed with the patient/family/POA. Questions were solicited and answers provided to the satisfaction of the patient/family/POA.
[2024-10-20] MEDS: ACETAMINOPHEN 500 MG TABLET 1000 MG PO (07:08)
--- NOTE | 2024-10-20 07:17 | WPDHPUPDATE1 ---
History and Physical Update Update Date/Time: 10/20/24 07:17 History and Physical has been reviewed, including an updated exam of the patient. There are NO changes in the patient's condition. Risks, benefits, and alternatives have been discussed and questions answered. Patient agrees to proceed with procedure.
[2024-10-20] MEDS: ceFAZolin 2 GM/D5W 50 ML 2 GM/50 ML BAG IVPB ×3 (07:45→23:44)
[2024-10-20] MEDS: SODIUM CHLORIDE 0.9% IV 37.7 ML, MORPHINE SULFATE INJ (*CRX) 2 MG, ROPivacaine HCL 1% 2... INFILTRATE (08:02)
[2024-10-20] MEDS: ceFAZolin SODIUM 1 GM VIAL 3 GM (08:03)
[2024-10-20] MEDS: LIDOCAINE 1% LOCAL INJ 10 ML VIAL 4 ML INFILTRATE (08:06)
[2024-10-20] MEDS: methylPREDNISolone ACETATE 80 MG/ML VIAL IM (08:07)
[2024-10-20] MEDS: GENTAMICIN BONE CEMENT REFOBACIN 1 EACH TOPICAL (10:36)
[2024-10-20] MEDS: ceFAZolin SODIUM 1 GM VIAL 2 GM IV PUSH (10:59)
[2024-10-20] MEDS: VANCOMYCIN 1 EACH IVPB (11:02)
--- NOTE | 2024-10-20 11:43 | W.PM.PROC2 ---
Procedure Note - Detailed Date of Procedure 10/20/24 Pre-op Diagnosis severe OA bilat knees with grade 3, 20 degree valgus deformity right knee Post-op Diagnosis Same Procedure Performed Cortisone injection left knee, right total knee arthroplasty with constrained Biomet 360 degree SSK system Surgeon Alvaro Hunt MD Director Of Student Affairs [facility] Anesthesia General Description of Procedure Patient brought to the operating room and general anesthesia was administered. She received 2 g of Ancef weight based vancomycin 1 g of TXA preoperatively. Under anesthesia she continued to exhibit a 5 or 6 degree flexion contracture and a severe valgus deformity that was non correctable passively. These factors added significant extra difficulty to the procedure as well as BMI of 33 which had approximately 1-1/2 hours of surgical time procedure. The left knee was prepped with ChloraPrep and injected with 80 mg of Depo-Medrol 4 cc 1% lidocaine through a lateral mid patellar approach. The The right knee was prepped draped usual fashion. Limb was exsanguinated tourniquet elevated to 300 mmHg. A 7 in longitudinal midline incision was used and a standard parapatellar arthrotomy utilized. Partial excision of infrapatellar fat pad was performed and quadriceps synovectomy carried out. The patella had prominent marginal osteophytes but still had normal cartilage thickness centrally. A guide asha was inserted on femoral canal after aspiration of canal contents using the distal femoral cutting guide set at 4? to compensate for the valgus femur, 10 mm of bone was removed from the distal femur medially. This removed about 4 lateral. Next the tibial plateau was cut. The cutting guide was set to remove approximately 1 mm of bone from the low point of the lateral tibial plateau perpendicular to the axis of the tibia. Meniscal remnants were excised the PCL recessed. There was gross asymmetry in the extension gap. Release of the lateral capsule and iliotibial band was performed 1 cm proximal to the lateral tibial surface. At 90? the flexion gap measured 10 mm medially and 15 mm laterally. The femoral sizing guide was applied to the distal femur set at 6? of external rotation which matched Whitesides line. Posterior referencing pinholes were placed. The optimal with the distal femur which sized to a 67.5 vanguard. This was going to notch severely however. The size 70 was applied and this was also going to notch. She did have a significant distal femoral flexion bow in her femoral now to me which predisposed her to issues with notching. We flexed the distal femoral cut a few degrees and I was still concerned the 70 might notch. We cut to a 72.5 to get an accurate estimate of where the cut would rest relative the anterior cortex of the femur. An additional 1 or 2? of flexion was introduced to the distal femoral cuts and the size 70 cutting block was then used which gave a flush anterior cut without notching. Posterior and chamfer cuts were made. The size 70 overhung medially and laterally about 1 mm each but downsizing would cause excessive notching. The tibia was sized to a 71 placed at proper rotation referenced the anterior cortex and medial 1/3 of the tibial tubercle and this was punched. The with the size 10 5 and 1 insert the knee was excessively loose in flexion but the size 12 mm insert was appropriate in flexion but was far too tight in extension with residual flexion contracture due to tightness laterally. The in additional 2 mm of bone was removed the distal femur. The posterolateral capsule was released at about the level of the joint line over the surface of the lateral collateral ligament and between the popliteus and lateral collateral ligament. Lateral collateral and popliteus were left intact. Posterior capsular release was performed centrally. Posterior femoral osteophyte was removed. On re- trialing with the 12 mm 5 and 1 I felt we were close to full extension. We had no play laterally to valgus stress and 6 or 7 mm of medial play despite the fact that had not released any the medial capsule. Therefore it was clear, as anticipated, that we would need to use the constrained system to compensate for the medial laxity due to her 20 degree anatomic axis valgus deformity. The size 70 360 degree femoral trial was applied the distal femur and the intercondylar notch bone removed without difficulty at the SSK height for the box. The Boss Reamer was used to make room for the 40 mm asha extension extending cephalad to the refill the intercondylar box. We trialed and with the 12 [address] in place the knee had still a significant lb appear to lack about 2 or 3? of extension. There was no play laterally. Therefore an additional 1 mm bone was removed the distal femur and the roof of the intercondylar box was re revised in on read trialing the knee had a barely perceptible bounce and a mm of play laterally now. Therefore a more thorough complete posterior capsular release was performed from the origin of the lateral head of the gastrocnemius laterally to the medial head of gastrocnemius. On read trialing the knee came out to full extension with negative bounce no play laterally varus stress in extension. At 90? there is about 2 or 3 mm of anterior drawer. With the extensor mechanism towel clipped we had appropriate stability at 30?. I could see that the post of the tibial insert was going to impinge markedly and the inferior patella therefore a patellar resurfacing was performed. It measured 23.5 mm in thickness and was cut to 15.5 mm and holes drilled for the 34 x 7.8 mm patella. Patellar tracking was not perfect until a lateral retinacular release was performed and then patellar tracking was perfect throughout range of motion. Fenton flexion was 135?. The tourniquet had been put down earlier at 90 minutes. The at this point the limb was re-exsanguinated tourniquet elevated to 300 mmHg. The bony surfaces were prepared with the step drill for optimal cement interdigitation. A 24 mm cement restrictor was inserted to the proper depth in the femoral canal and the 90 surfaces thoroughly irrigated and dried. Using 2 batches of methylmethacrylate 1 the gentamicin powder, the cement was immediately applied to the size 71 tibia and then to the size 70 right constrained SSK vanguard femoral component cement applied the tibial plateau and into the canal pressurized tibial component fully seated cement applied the femur and into the canal on the femoral component was fully seated. The knee was brought into extension with a 13 mm 5 1 insert for cement pressurization. Next tourniquet was released at approximately 110 total minutes. After cement hardening excess cement was sought for removed and hemostasis was confirmed. I would estimate total blood loss at 200 cc. We trialed with the 12 SSK tibial trial and had the same stability findings as above with just full extension and negative bounce no play laterally. Was laxity medially of course in extension. We placed the 12 SSK insert without difficulty range of motion stability reconfirmed patellar tracking was central throughout range of motion. Local anesthetic cocktail was injected in the periarticular soft tissues. She received 2 additional g of Ancef 1 g of TXA. Arthrotomy was closed with 2. Vicryl and 1. Unidirectional barbed Stratafix suture. Skin was closed with 2 subcu Vicryl 3-0 subcuticular Monocryl and glue. The real complications she was transferred postop recovery room in stable condition. The I do not [facility] Billing Surgery - Charge Forward: Surgery Billing (Cortisone injection left knee, right total knee arthroplasty with extra difficulty due to severe valgus deformity his flexion contracture and obesity.)
--- NOTE | 2024-10-20 12:03 | PM.OP ---
Procedure Note - Brief Procedure Note - Brief Date of procedure: 10/20/24 severe OA bilat knees Procedure performed: Right total knee arthroplasty Surgeon: CELINA Jones Findings: 74-year-old female underwent right total knee arthroplasty on 10/20. I was involved in the procedure including positioning the patient on the OR table in 1st assisting through the time surgery. Total time spent was 3-1/2 hours
[2024-10-20] MEDS: fentaNYL CITRATE INJ (*CRX) 100 MCG/2 ML VIAL 25 MCG IV PUSH ×2 (12:50→12:55)
[2024-10-20] MEDS: SODIUM CHLORIDE 0.9% IV 1,000 ML 125 ML IV CONT (14:11)
[2024-10-20] MEDS: ACETAMINOPHEN 325 MG TABLET 650 MG PO ×3 (14:11→21:36)
[2024-10-20] MEDS: oxyCODONE HCL (*CRX) 5 MG TAB IR PO ×3 (14:11→21:35)
--- NOTE | 2024-10-20 14:15 | ADMGEN ---
This patient, Gayle Ventura, was admitted to Medical Room 253-01. Patient/family oriented to hospital policies and general routines including ID bracelet, bed and alarms, visiting hours, pain management, procedures, bathroom and other care routines, personal items, smoking policy, room service/diet, and visiting hours. Information on how to activate the Rapid Response Team has been discussed. Patient/Family are encouraged to report perceived risks to care and to ask questions if they do not understand what they are told or what they should do.
--- NOTE | 2024-10-20 15:24 | P.CONIM_ITS ---
Assessment and Plan Assessment and plan (1) Primary localized osteoarthritis of both knees: Code(s): M17.0 - Bilateral primary osteoarthritis of knee Status: Acute Assessment and Plan: Underwent a right total knee arthroplasty with constrained Biomet 360 degree SSK system and a cortisone injection of the left knee on 10/20/2024. - ambulate with assistance and up to chair - apply gel pads - neurovasc checks - see order for intervals - SCDs - analgesics and antiemetics p.r.n. - monitor labs in AM - CBC and BMP - bowel regimen: docusate/senna, polyethylene glycol - PT/OT evaluation treatment (2) Essential hypertension: Code(s): I10 - Essential (primary) hypertension Status: Chronic Assessment and Plan: - chronic, currently 100/46 - continue home medications: carvedilol, HCTZ, irbesartan, hydralazine - monitor Plan Diet: Regular GI Prophylaxis: Famotidine DVT Prophylaxis: SCDs, Eliquis Lines: Peripheral Code Status: Full code HPI Date of Consult Consult date: 10/20/24 Requesting Physician: Alvaro Hunt MD Primary Care Provider: Tay Enamorado MD Consult Narrative Reason for consult: Medical Management Narrative: 74 y/o F with PMH of coronary artery disease 1-year-old male regurgitation, hyperlipidemia, diastolic dysfunction, hypertension, and prediabetes presents here for a right total knee arthroplasty. The patient reports she has been having chronic pain to her bilateral knees for a couple years. She has previously tried Celebrex 100 mg daily and cortisone injections. Last injection in May of 2024 which provided minimal relief. She has severe lateral compartment osteoarthritis of the bilateral knees. Pain now interfering with her daily activities and on a daily basis. Given these factors she elected to proceed with surgical management. She underwent a right total knee arthroplasty and cortisone injection of the left knee on 10/20/2024. Postoperatively she is reporting no complaints, states she feels better than she thought she would. Preop VS: 98? F, HR 61, R 18, 138/68, and 99% on RA. Preop workup: No leukocytosis, no anemia, no significant electrolyte derangement, creatinine 0.75 and GFR >60, glucose 128, A1c 6.1%. Review of Systems Review of Systems: All systems reviewed & are unremarkable except as noted in HPI and below PMFSH Past Medical History Medical History Hx of ovarian cancer S/P right salpingectomy and oophorectomy CAD (coronary artery disease) Encounter for routine adult health examination with abnormal findings Trigger finger of both hands Cataracts, bilateral Breast cancer screening Hearing loss Encounter for Medicare annual wellness exam Mitral valve regurgitation Fatty liver BMI 33.0-33.9,adult Family history of coronary artery disease Hypersomnia Mixed hyperlipidemia Dry mouth Diastolic dysfunction DJD (degenerative joint disease) of knee Pre-diabetes Encounter for routine adult health examination without abnormal findings RBBB (right bundle branch block) Colon cancer screening Encounter to establish care On technician terminal and repeater drug therapy AK (actinic keratosis) Essential hypertension Myalgia Surgical History Surgical History History of knee surgery S/P cataract surgery w/lens implants History of right knee surgery History of left knee surgery History of appendectomy History of total hysterectomy Family History Family History Father Acute myocardial infarction Mother Family history of cardiovascular disease Family history of arthritis Family history of heart disease in male family member before age 55 Sibling Pulmonary embolism Other Family history of malignant neoplasm Hypertension Social History Social History Smoking status: Never smoker Second hand tobacco smoke exposure: Yes Additional smoking assessment comments: DENIES ANY FORM OF TOBACCO Alcohol intake: never Drinks per week: 5 Alcohol use details: TWO DRINKS PER MONTH Substance use: never Substance use type: does not use Do You Feel Safe in your Home?: Yes Lack of Transportation: No Lack of Food: Never True Current Housing: I Have Housing Concerned About Future Housing: No Difficulty Paying Gas/Electric Bills: No Difficulty Paying for Meds: No Currently Unemployed: No Education: Associate Degree Difficulty w/ Childcare or Family Care: No Living arrangements: with family Additional living arrangements comments: Son 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 Gender identity (if verbalized by the patient): Female Spiritual care concerns: No Meds Home Medications and Allergies Home Medications ?Medication ?Instructions ?Recorded ?Confirmed ?Type cholecalciferol (vitamin D3) 50 2,000 unit PO DAILY 07/21/19 10/20/24 History mcg (2,000 unit) tablet coenzyme Q10 75 mg capsule (Ultra 100 mg PO DAILY 08/23/20 10/20/24 History CoQ10) valacyclovir 500 mg tablet 500 mg PO TID PRN fever blisters 07/31/23 09/29/24 Rx (Valtrex) #25 tabs magnesium oxide 400 mg (241.3 mg See Rx Instructions .Route 12/17/23 10/20/24 Rx magnesium) tablet .COMPLEX #90 tabs potassium chloride 10 mEq See Rx Instructions .Route 04/11/24 10/20/24 Rx tablet,extended release .COMPLEX #180 tabs lovastatin 10 mg tablet See Rx Instructions .Route 05/16/24 10/20/24 Rx .COMPLEX #90 tabs carvedilol 25 mg tablet 25 mg PO Q12H #180 tabs 06/09/24 10/20/24 Rx cranberry 500 mg capsule 2,500 mg PO BID 08/04/24 10/20/24 History hydralazine 25 mg tablet 25 mg PO BID #180 tabs 08/04/24 10/20/24 Rx celecoxib 100 mg capsule (Celebrex) 100 mg PO DAILY #30 caps 09/20/24 10/20/24 Rx hydrochlorothiazide 25 mg tablet 25 mg PO DAILY #90 tabs 09/29/24 10/20/24 Rx irbesartan 300 mg tablet 300 mg PO DAILY #90 tabs 09/29/24 10/20/24 Rx Allergies Allergy/AdvReac Type Severity Reaction Status Date / Time No Known Allergies Allergy Verified 10/20/24 14:23 Vital Signs Vital Signs - 24 hr 10/20/24 06:45 10/20/24 11:53 10/20/24 12:10 Temperature 98.1 F 97.7 F Pulse Rate 65 74 68 Respiratory Rate 16 18 16 Blood Pressure 156/63 H 105/45 L 125/57 L Pulse Oximetry 98 99 100 Oxygen Delivery Room Air Simple Face Mask Simple Face Mask Oxygen Flow Rate 6 6 10/20/24 12:25 10/20/24 12:40 10/20/24 12:55 Temperature Pulse Rate 73 62 71 Respiratory Rate 15 12 14 Blood Pressure 126/63 133/79 137/59 L Pulse Oximetry 100 97 97 Oxygen Delivery Simple Face Mask Room Air Room Air Oxygen Flow Rate 6 10/20/24 13:10 10/20/24 13:25 Temperature Pulse Rate 76 65 Respiratory Rate 14 14 Blood Pressure 135/72 123/66 Pulse Oximetry 99 98 Oxygen Delivery Room Air Room Air Oxygen Flow Rate Exam Const: General: comfortable and no acute distress Other: , female, nontoxic appearance HENMT: Face/Nose/Sinus: Normal nares present Mouth: Yes moist mucous membranes Eyes: General: appearance normal, both eyes and all related structures Sclera: sclerae normal Pupils: Equal, round and reactive pupils present EOM: EOMs intact bilaterally Resp: Effort & Inspection: normal respiratory effort Auscultation: clear to auscultation bilaterally Cardio: Rate: regular rate Rhythm: regular rhythm Other: S1-S2 present without murmur, rub, ectopy GI: Other: Abdomen soft, nondistended, nontender. Normoactive bowel sounds in all quadrants. Skin: General skin exam: normal color and no rashes or lesions noted Other: Postsurgical incision to right knee. Dressing CDI. Minimal edema. No signs of infection. Neuro: Speech: normal speech Motor exam (neuro): 5/5 motor strength present throughout Sensory Exam: normal sensation Other: A&O x4 Extrem: General: normal exam except as noted Psych: Mental Status: mental status grossly normal Affect: normal affect Other: Good insight and judgment, very pleasant. Quality VTE Prophylaxis VTE prophylaxis: mechanical ordered and pharmacologic ordered Hospitalist [facility] Advance Care Plan I have confirmed that the patient's Advanced Care Plan is present, code status is documented, or surrogate decision maker is listed in patient medical record.: Yes Medication Reconciliation I have utilized all available resources to obtain, update and review the patients current medications (includes all prescriptions, OTC, herbals, cannabis, and nutritional supplements).: Yes
[2024-10-20] MEDS: POTASSIUM CHLORIDE 10 MEQ ER TABLET BY MOUTH (17:04)
[2024-10-20] MEDS: SENNA/DOCUSATE SODIUM TABLET 2 TAB PO (17:04)
[2024-10-20] MEDS: hydrALAZINE HCL 25 MG TABLET PO (17:04)
[2024-10-20] MEDS: VANCOMYCIN 1,000 MG/NS 250 ML 1,000 MG/250 ML BAG 250 MG IVPB (18:16)
[2024-10-20] MEDS: carvediloL 25 MG TABLET PO (21:35)
[2024-10-20] MEDS: FAMOTIDINE 20 MG TABLET PO (21:35)
[2024-10-21] MEDS: oxyCODONE HCL (*CRX) 5 MG TAB IR PO ×3 (02:03→09:10)
[2024-10-21] MEDS: ACETAMINOPHEN 325 MG TABLET 650 MG PO ×3 (02:03→09:10)
[2024-10-21 03:17] VITALS: BP 126/70; PULSE 76; RESP 16; TEMP 36.7; O2SAT 96
[2024-10-21 05:25] LABS: Basophils Percent Auto 0.2 % (0.2-1.2); Hematocrit 30.3 % (37.0-47.0); Hemoglobin 9.9 g/dL (12.0-15.0); Immature Granulocyte Absolute 0.05 K/mm3 (0.00-0.031); Immature Granulocyte Percent A 0.4 % (0-0.5); Lymphocytes Absolute Auto 1.09 K/mm3 (0.9-3.2); Lymphocytes Percent Auto 8.7 % (18.3-44.2); Mean Corpuscular HGB Conc 32.7 g/dl (32-36); Mean Corpuscular Hemoglobin 31.8 pg (26-34); Mean Corpuscular Volume 97.4 fl (80-100); Mean Platelet Volume 10.7 fl (7.4-10.4); Monocytes Absolute Auto 2.2 K/mm3 (0.1-0.6); Monocytes Percent Auto 17.5 % (2.6-8.5); Neutrophils Absolute Auto 9.1 K/mm3 (1.3-6.7); Neutrophils Percent Auto 73.2 % (45.5-73.1); Platelet Count Result 151 k/mm3 (150-375); Red Blood Count 3.11 M/mm3 (4.2-5.4); Red Cell Distribution Width 12.5 % (11.5-14.5); White Blood Count 12.5 K/mm3 (4.5-10.0)
[2024-10-21 05:37] LABS: Anion Gap 6 mmol/L (4-12); Blood Urea Nitrogen 17 mg/dL (7-17); Calcium 8.1 mg/dL (8.4-10.2); Carbon Dioxide 26 mmol/L (22-30); Chloride 102 mmol/L (98-107); Estimated CRCL calculation 53 ml/min; Estimated Glomerular Filt Rate > 60; Glucose 128 mg/dL (65-110); Potassium 3.6 mmol/L (3.4-5.0); Sodium 134 mmol/L (137-145)
[2024-10-21] MEDS: VANCOMYCIN 1,000 MG/NS 250 ML 1,000 MG/250 ML BAG 250 MG IVPB (06:18)
--- NOTE | 2024-10-21 07:15 | PM.PNORT ---
Subjective Subjective Date/Time Seen: 10/21/24 07:15 Interval history: Postop day 1 patient is alert. She is afebrile vital signs are stable. Morning labs are noted. Dressing is dry and intact. She has some ecchymosis to the lateral aspect of the knee. Skin is all intact, no blistering. There is no increased swelling in lower extremity. She was walking yesterday with physical therapy. Pain overall is very well controlled. Neurovascularly she is intact. Overall patient is doing exceptionally well. She is eager to go home. She will finish up her IV antibiotics dosing and do therapy this morning and once that is been completed she will be discharged home later this morning. Objective Data Vital Signs Vital Signs: Vital Signs - 24 hr 10/20/24 11:53 10/20/24 12:10 10/20/24 12:25 Temperature 97.7 F Pulse Rate 74 68 73 Respiratory Rate 18 16 15 Blood Pressure 105/45 L 125/57 L 126/63 Pulse Oximetry 99 100 100 Oxygen Delivery Simple Face Mask Simple Face Mask Simple Face Mask Oxygen Flow Rate 6 6 6 10/20/24 12:40 10/20/24 12:55 10/20/24 13:10 Temperature Pulse Rate 62 71 76 Respiratory Rate 12 14 14 Blood Pressure 133/79 137/59 L 135/72 Pulse Oximetry 97 97 99 Oxygen Delivery Room Air Room Air Room Air Oxygen Flow Rate 10/20/24 13:25 10/20/24 13:32 10/20/24 13:47 Temperature 97.6 F 97.6 F Pulse Rate 65 68 68 Respiratory Rate 14 14 14 Blood Pressure 123/66 148/58 H 134/66 Pulse Oximetry 98 97 99 Oxygen Delivery Room Air Oxygen Flow Rate 10/20/24 14:17 10/20/24 14:59 10/20/24 15:17 Temperature 97.9 F 97.9 F Pulse Rate 77 72 Respiratory Rate 16 16 Blood Pressure 131/67 134/65 Pulse Oximetry 95 97 Oxygen Delivery Room Air Oxygen Flow Rate 10/20/24 19:17 10/20/24 20:00 10/20/24 21:35 Temperature 98 F Pulse Rate 64 64 Respiratory Rate 16 Blood Pressure 100/46 L Pulse Oximetry 97 Oxygen Delivery Room Air Oxygen Flow Rate 10/20/24 23:17 10/21/24 03:17 Temperature 97.8 F 98.1 F Pulse Rate 74 76 Respiratory Rate 18 16 Blood Pressure 111/74 126/70 Pulse Oximetry 95 96 Oxygen Delivery Oxygen Flow Rate Intake/Output Intake/Output: Intake & Output 10/18/24 10/19/24 10/20/24 10/21/24 23:59 23:59 23:59 23:59 Intake Total 840 400 Output Total 300 300 Balance 540 100 Meds/Results Medications: Active Medications Generic Name Dose Route Start Last Admin Trade Name Freq PRN Reason Stop Dose Admin Acetaminophen 650 mg 10/20/24 14:00 10/21/24 05:39 Acetaminophen 325 Mg Tablet PO 650 mg Q4H TAMIKA Administration Apixaban 2.5 mg 10/21/24 09:00 Apixaban 2.5 Mg Tablet PO 11/01/24 21:01 Q12HR TAMIKA Carvedilol 25 mg 10/20/24 21:00 10/20/24 21:35 Carvedilol 25 Mg Tablet PO 25 mg Q12H TAMIKA Administration Cefdinir 300 mg 10/21/24 12:00 Cefdinir 300 Mg Capsule PO Q12HR TAMIKA Celecoxib 100 mg 10/21/24 09:00 Celecoxib 100 Mg Capsule PO DAILY TAMIKA Diphenhydramine HCl 25 mg 10/20/24 13:32 Diphenhydramine Hcl Inj 50 Mg/Ml Vial IV PUSH Q6H PRN Itching Famotidine 20 mg 10/20/24 21:00 10/20/24 21:35 Famotidine 20 Mg Tablet PO 20 mg Q12HR TAMIKA Administration Hydralazine HCl 25 mg 10/20/24 17:00 10/20/24 17:04 Hydralazine Hcl 25 Mg Tablet PO 25 mg BID TAMIKA Administration Hydrochlorothiazide 25 mg 10/21/24 09:00 Hydrochlorothiazide 25 Mg Tablet PO DAILY TAMIKA Cefazolin Sodium 2 gm in 50 mls @ 100 mls/hr 10/20/24 16:00 10/21/24 00:14 Ancef 2 Gm/D5w 50 Ml IVPB 10/21/24 08:29 Infused Q8H TAMIKA Infusion Vancomycin HCl 1,000 mg in 250 mls @ 250 mls/hr 10/20/24 19:00 10/21/24 06:18 Vancomycin 1,000 Mg/Ns 250 Ml IVPB 10/21/24 07:59 250 mls/hr Q12H TAMIKA Administration Irbesartan 300 mg 10/21/24 09:00 Irbesartan 150 Mg Tablet PO DAILY [facility] Lovastatin 10 mg 10/21/24 09:00 Lovastatin 10 Mg Tablet PO QAM [facility] Morphine Sulfate 2 mg 10/20/24 13:32 Morphine Sulfate (*Crx) 2 Mg/Ml Inj IV PUSH Q2H PRN Breakthrough Pain Rated 4-6 or NPO Naloxone HCl 0.1 mg 10/20/24 13:32 Naloxone Hcl 0.4 Mg/Ml Vial IV PUSH Q2M PRN Opiate Reversal Ondansetron HCl 4 mg 10/20/24 13:32 Ondansetron Inj 4 Mg/2 Ml Vial IV PUSH Q4H PRN Nausea And Vomiting Oxycodone HCl 5 mg 10/20/24 14:00 10/21/24 05:39 Oxycodone Hcl (*Crx) 5 Mg Tab Ir PO 5 mg Q4H TAMIKA Administration Oxycodone HCl 5 mg 10/20/24 13:32 Oxycodone Hcl (*Crx) 5 Mg Tab Ir PO Q4H PRN Pain Rated 7-10 Polyethylene Glycol 17 gm 10/21/24 09:00 Polyethylene Glycol 3350 17 Gm Powd.Pack PO QAM [facility] Potassium Chloride 10 meq 10/20/24 17:00 10/20/24 17:04 Potassium Chloride 10 Meq Er Tablet BY MOUTH 10 meq BID [facility] Administration Senna/Docusate Sodium 2 tab 10/20/24 17:00 10/20/24 17:04 Senna/Docusate Sodium Tablet PO 2 tab BID [facility] Administration Vitamin D 2,000 units 10/21/24 09:00 Cholecalciferol 1,000 Units Tablet PO DAILY [facility] Radiology Results: ITS Impressions Knee X-Ray 10/20/24 13:15 IMPRESSION: 1. Recent right total knee arthroplasty. Labs Labs: Laboratory Results - last 24 hr 10/20/24 10/21/24 06:43 05:05 WBC 12.5 H RBC 3.11 L Hgb 9.9 L D Hct 30.3 L MCV 97.4 MCH 31.8 MCHC 32.7 RDW 12.5 Plt Count 151 MPV 10.7 H Immature Gran % (Auto) 0.4 Neut % (Auto) 73.2 H Lymph % (Auto) 8.7 L [place] % (Auto) 17.5 H Eos % (Auto) 0.0 Baso % (Auto) 0.2 Lymph # (Auto) 1.09 [place] # (Auto) 2.2 H Eos # (Auto) 0.0 Baso # (Auto) 0.0 Abs Immat Gran (auto) 0.05 H Absolute Neuts (auto) 9.1 H Absolute Nucleated RBC 0.000 Nucleated RBC % 0.0 Sodium 134 L Potassium 3.6 Chloride 102 Carbon Dioxide 26 Anion Gap 6 BUN 17 Creatinine 0.89 Estim Creat Clear Calc 53 Estimated GFR > 60 Glucose 128 H Calcium 8.1 L Blood Type A Positive Antibody Screen Positive Antibody Identification Anti-Gordon A Antigen Identification Not Reportable SUDARSHAN, IgG Interpret Not Performed SUDARSHAN, Poly Interpret Neg SUDARSHAN, Complement Interp Not Performed
[2024-10-21] MEDS: ceFAZolin 2 GM/D5W 50 ML 2 GM/50 ML BAG IVPB (07:27)
[2024-10-21 08:02] VITALS: PULSE 70
[2024-10-21] MEDS: IRBESARTAN 150 MG TABLET 300 MG PO (08:02)
[2024-10-21] MEDS: LOVASTATIN 10 MG TABLET PO (08:02)
[2024-10-21] MEDS: polyethylene glycoL 3350 17 GM POWD.PACK PO (08:02)
[2024-10-21] MEDS: carvediloL 25 MG TABLET PO (08:02)
[2024-10-21] MEDS: SENNA/DOCUSATE SODIUM TABLET 2 TAB PO (08:02)
[2024-10-21] MEDS: APIXABAN 2.5 MG TABLET PO (08:03)
[2024-10-21] MEDS: CHOLECALCIFEROL 1,000 UNITS TABLET 2000 UNITS PO (08:03)
[2024-10-21] MEDS: hydroCHLOROthiazide 25 MG TABLET PO (08:03)
[2024-10-21] MEDS: POTASSIUM CHLORIDE 10 MEQ ER TABLET BY MOUTH (08:03)
[2024-10-21] MEDS: CELECOXIB 100 MG CAPSULE PO (08:03)
[2024-10-21] MEDS: FAMOTIDINE 20 MG TABLET PO (08:03)
[2024-10-21] MEDS: hydrALAZINE HCL 25 MG TABLET PO (08:03)
--- NOTE | 2024-10-21 10:01 | PC.NURSE ---
I gave patient extra aquacell dressing to change when home.
== END 2024-10-21 11:05 | disposition home or self-care (01) ==
LOC: ANHSURGERY 06:05 → ANH2MED 13:34
PROVIDERS: Physician Assistant Surgical; PCP Internal Medicine; Visit Provider Orthopaedic Surgery
PROC: (CPT 27447; principal; 2024-10-20 07:30)
DX: M17.0 Bilateral primary osteoarthritis of knee (principal); I25.10 Atherosclerotic heart disease of native coronary artery without angina pectoris; E78.5 Hyperlipidemia, unspecified; I11.9 Hypertensive heart disease without heart failure; R73.03 Prediabetes; E66.9 Obesity, unspecified; Z68.33 Body mass index [BMI] 33.0-33.9, adult
CPT/HCPCS: 27447; 20610; 36415; 73560; 80048; 85025; 86850; 86870; 86880; 86900; 86901; 86902; 86905; 86971; 97110; 97161; 97165; 97530; 97535; A9270; C1713; C1770; C1776; J0171; J0690; J1010; J1100; J1885; J2003; J2250; J2270; J2405; J2704; J2795; J3010; J3370; J7030; J7120

== ENCOUNTER 2024-10-25 12:46 | Outpatient (CLI) | payer MEDICARE, BC, SELFPAY ==
--- NOTE | ~2024-10-25 | US_ITS ---
RIGHT LOWER EXTREMITY VENOUS ULTRASOUND Ordering provider: CELINA Jones History: . R60.0 - Localized edema . Comparison: None. FINDINGS: --COMMON FEMORAL: Patent and free of thrombus. Normal compressibility, phasic flow and augmentation. --PROXIMAL SUPERFICIAL FEMORAL: Patent and free of thrombus. Normal compressibility, phasic flow and augmentation. --DISTAL SUPERFICIAL FEMORAL: Patent and free of thrombus. Normal compressibility, phasic flow and au gmentation. --POPLITEAL: Patent and free of thrombus. Normal compressibility, phasic flow and augmentation. --POSTERIOR TIBIAL: Patent and free of thrombus. Normal compressibility, phasic flow and augmentation . Guzman's cyst measuring 3.4 x 1 x 2.6 cm is seen in the medial knee. Hematoma cannot be excluded. IMPRESSION: Negative right lower extremity venous US. No deep vein thrombosis. Guzman's cyst versus hematoma in the right kidney medially. Reviewed, dictated and finalized at location A.
--- OUTSIDE RECORDS SUMMARY | 2024-10-25 13:58 | XMS_ITS | Clinical Summary ---
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
--- OUTSIDE RECORDS SUMMARY | 2024-10-25 13:58 | XMS_ITS | Clinical Summary ---
Author Organization [facility] Address [address] [place] [address] Care Team Providers Care Openstack Developer Name Role Phone MeghanAmanuelRickzachary Gray DO Primary Care Provider Source Comments [facility],non-owned Affiliates and Associated Physician Practices is amultiple site organization consisting of ambulatory clinics and hospital sitesin [place], [place], [place] and [place]. This disclosure is being madepursuant to the Care Everywhere program and may not contain all information available regarding this patient. Last updated 18.[facility] Testive Allergies No known active allergies Medications * [...] triamcinolone (NASACORT AQ) 55 MCG/ACT nasal inhaler Hilliards 2 Sprays into each nostril daily. 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
--- OUTSIDE RECORDS SUMMARY | 2024-10-25 13:58 | XMS_ITS | Continuity of Care Document ---
Author Organization [facility] Address [address] [place] [address] Phone Care Team Providers Care Hack Saw Operator Name Role Phone Rodrigues OD, Aidan Unavailable [...] Providers Copied on Encounter [facility], [address] [place] [address] [address], [place], [place], [id number], tel:[phone] [facility] No Information Sep-1 8-200 7 Rodrigues OD Aidan. [address] , [address], [place], [place], [facility], [place]. tel:[phone] [facility], [address] [place] [address] [address], [place], [place], [id number], [place] tel:[phone] [facility] No Information Sep-0 6-200 7 Rodrigues OD Aidan. [address], [address], [place], [facility], [place]. tel:[phone] [facility], [address] [place] [address] [address], [place], [place], [id number], [place] tel:[phone] [facility] No Information 0-200 7 Rodrigues OD Aidan. [address] , [address], [place], [address], [place]. tel:[phone] [facility], [address], [place], [place], [id number], [place] tel:[phone] [facility] No Information 6-200 7 Rodrigues OD Aidan. [address] [facility] , [address], [place], [address], [place]. tel:[phone] Family History Family Member Type Diagnosis Age At Onset No Information Payers Payer name Insurance type Covered constitution party ID Pearl vicentejune(s) [place] FEP BL [id number] Social History Type Description Quantity Date Captured [...]
== END 2024-10-25 12:47 | disposition home or self-care (01) ==
PROVIDERS: PCP Internal Medicine; Visit Provider Physician Assistant Surgical
DX: M71.21 Synovial cyst of popliteal space [Baker], right knee (principal); N28.89 Other specified disorders of kidney and ureter; R60.0 Localized edema
CPT/HCPCS: 93971

== ENCOUNTER 2024-12-27 14:00 | Outpatient (RCR) | payer MEDICARE, BC, SELFPAY ==
--- NOTE | 2024-10-24 18:00 | OPREHPOC ---
Outpatient Therapy Plan of Care This is a Multidisciplinary Plan of Care that may contain components documented by all disciplines (PT, OT, and ST.) PT Problem 1 PT Problem #1 Knowledge Deficit PT Goal 1 Goal / Goal Update Pepin with HEP Target Visit 4 PT Goal 2 Goal / Goal Update 1. Report no pain greater that 2/10 for 2 consecutive weeks 2. Improve joint line circumference by 2+ cm indicating improved soft tissue healing Target Visit 8 PT Problem 2 PT Problem #2 Impaired Range of Motion PT Goal 1 Goal / Goal Update Achieve 125 degrees of R knee flexion for functional bend improvement Target Visit 10 PT Problem 3 PT Problem #3 Impaired Strength PT Goal 1 Goal / Goal Update 1. Improve R hip flexion strength to 4+/5 to improve foot clearance 2. Demonstrate ability to improve terminal knee quad strength to 5/5 for improved patellar control and knee stability Target Visit 10 PT Problem 4 PT Problem #4 Impaired Gait PT Goal 1 Goal / Goal Update 1. Ambulate independent of AD 2. Ambulate with even stride length bilaterally Target Visit 10
--- NOTE | 2024-10-24 18:01 | PTOPEVAL1 ---
Assessment and note entered by Neo Jean Baptiste, PT Evaluation Information Assessment Status Evaluation Diagnosis S/P R TKA ICD-10 Condition Codes (PT) Pain in right knee M25.561 Onset 10/20/24 Subjective Information Reports that she is having a lot of pain right now in the back of her right knee. She is currently consistently taking pain medication. Says that she does a little better after getting up and walking . Feels the knee is extending well with stride. Reports that she is not yet having regular bowel movements either. She took a pain pill prior to this evaluation. She was receiving injections series prior to knee replacement. Reported Pain Level Pain Score 1: Self Report Assessment PT Clinical Summary Patient presents with typical sings and symptoms consistent with post operative total knee arthroplasty. Patient limited by pain, swelling, and lack of ROM at this time. Extension is full at this time and knee flexion lacking. Patient will benefit from skilled therapy to address deficits per protocol for penitentiary functionality and pain relief of right knee. Plan of Care Interventions Gait Training,Manual Therapy,Neuro Re-education, Therapeutic Activities,Therapeutic Exercise PT Services Indicated Yes Treatment Frequency and 2x/week for 10 visits Duration These treatments will address the objective and functional deficits as defined above. The patient will be advanced safely and appropriately in order for the patient to progress towards his/her prior level of function. Additional exercises will be introduced and as well as a comprehensive home exercise program upon discharge, if needed, ?to ensure carryover of functional gains achieved in the clinic. This treatment plan has been reviewed and agreement upon by the patient.
--- NOTE | 2024-11-24 12:09 | OPREHPOC ---
Outpatient Therapy Plan of Care This is a Multidisciplinary Plan of Care that may contain components documented by all disciplines (PT, OT, and ST.) PT Problem 1 PT Problem #1 Knowledge Deficit PT Goal 1 Goal / Goal Update Placer with HEP Target Visit 4 Progress Met PT Goal 2 Goal / Goal Update 1. Report no pain greater that 2/10 for 2 consecutive weeks 2. Improve joint line circumference by 2+ cm indicating improved soft tissue healing Target Visit 8 Progress Met PT Problem 2 PT Problem #2 Impaired Range of Motion PT Goal 1 Goal / Goal Update Achieve 125 degrees of R knee flexion for functional bend improvement Target Visit 10 Progress Met PT Problem 3 PT Problem #3 Impaired Strength PT Goal 1 Goal / Goal Update 1. Improve R hip flexion strength to 4+/5 to improve foot clearance 2. Demonstrate ability to improve terminal knee quad strength to 5/5 for improved patellar control and knee stability- Met 11/24/24: Continues to show hip weakness 4-/5 Target Visit 10 Progress Partially Met PT Problem 4 PT Problem #4 Impaired Gait PT Goal 1 Goal / Goal Update 1. Ambulate independent of AD 2. Ambulate with even stride length bilaterally 11/24/24: Ambulating with SPC. Decreased terminal stance R LE Target Visit 10 Progress Partially Met
--- NOTE | 2024-11-24 12:09 | PTOPPROG ---
Assessment and note entered by Neo Jean Baptiste, PT Evaluation Information Assessment Status Progress Diagnosis S/P R TKA ICD-10 Condition Codes (PT) Pain in right knee M25.561 Onset 10/20/24 Subjective Information Reports that at this point in therapy it is achy but doesn't really hurt. She is getting some distal quad soreness. Walking with a cane at all time. Functionally feels like she would like to continue to working with therapy to improve her gait and get a little more comfortable with her functional activity. Notices when she sits for a while she has some difficulty getting going and straightening the knee. Assessment PT Clinical Summary Patient has seen excellent progress in knee stability and gait. She is still dependent on cane and has some stiffness with functional transfers. Patient remains highly motivated to improve gait cycle and wants to build up the strength in her hips. She will continue to benefit from therapy to address these needs but was cautioned on doing too much too soon. Plan of Care Interventions Gait Training,Manual Therapy,Neuro Re-education, Therapeutic Activities,Therapeutic Exercise PT Services Indicated Yes Treatment Frequency and 2x/week for 10 visits Duration These treatments will address the objective and functional deficits as defined above. The patient will be advanced safely and appropriately in order for the patient to progress towards his/her prior level of function. Additional exercises will be introduced and as well as a comprehensive home exercise program upon discharge, if needed, ?to ensure carryover of functional gains achieved in the clinic. This treatment plan has been reviewed and agreement upon by the patient.
--- NOTE | 2024-12-27 14:56 | OPREHPOC ---
Outpatient Therapy Plan of Care This is a Multidisciplinary Plan of Care that may contain components documented by all disciplines (PT, OT, and ST.) PT Problem 1 PT Problem #1 Knowledge Deficit PT Goal 1 Goal / Goal Update [place] with HEP 12-27-24 d.c goal met Target Visit 4 Progress Met PT Goal 2 Goal / Goal Update 1. Report no pain greater that 2/10 for 2 consecutive weeks 2. Improve joint line circumference by 2+ cm indicating improved soft tissue healing 25 d.c goal met Target Visit 8 Progress Met PT Problem 2 PT Problem #2 Impaired Range of Motion PT Goal 1 Goal / Goal Update Achieve 125 degrees of R knee flexion for functional bend improvement 12-27-24 d.c goal met Target Visit 10 Progress Met PT Problem 3 PT Problem #3 Impaired Strength PT Goal 1 Goal / Goal Update 1. Improve R hip flexion strength to 4+/5 to improve foot clearance 2. Demonstrate ability to improve terminal knee quad strength to 5/5 for improved patellar control and knee stability- Met 11/24/24: Continues to show hip weakness 4-/5 -05-13 d.c goal met Target Visit 10 Progress Met PT Problem 4 PT Problem #4 Impaired Gait PT Goal 1 Goal / Goal Update 1. Ambulate independent of AD 2. Ambulate with even stride length bilaterally 11/24/24: Ambulating with SPC. Decreased terminal stance R LE 12-27-24 d.c goal met Target Visit 10 Progress Met
--- NOTE | 2024-12-27 14:56 | PTOPDC ---
Assessment and note entered by Luna Holcomb, PT Assessment Status Discharge Diagnosis S/P R TKA ICD-10 Condition Codes (PT) Pain in right knee M25.561 Onset 10/20/24 Subjective Information knee is doing great; been doing all the exercises ; is not able to squat--have problems with years due to both knees; use the cane only on uneven ground Reported Pain Level Pain Score 0: Self Report Additional Pain Score Comments pain range in the R knee 0-3/10 increase pain: tight when first wake up in AM and if sit more than 20-30 minutes decrease pain: change positions Assessment PT Clinical Summary Gayle has received 14 PT sessions. Today has: pain range of 0-3/10; self assessment with LE functional scale rating of 20% limitation in activity level; active ROM of R knee 0-130'; good strength of R hip and knee; decreased edema with circumferential measurement at joint line; good gait pattern without assistive device and education completed for HEP. The goals were achieved. Discharge PT services. She is to continue with her HEP and progression of activity as tolerated, monitoring pain and edema. Plan of Care PT Services Indicated No
== END 2024-12-28 09:48 | disposition home or self-care (01) ==
LOC: ANHPT 14:00
PROVIDERS: PCP Internal Medicine; Visit Provider Orthopaedic Surgery
DX: M17.11 Unilateral primary osteoarthritis, right knee (principal); Z96.651 Presence of right artificial knee joint
CPT/HCPCS: 97016; 97110; 97116; 97140; 97161; 97530

== ENCOUNTER 2025-01-26 06:49 | Outpatient (CLI) | payer MEDICARE, BC, SELFPAY ==
--- OUTSIDE RECORDS SUMMARY | 2025-01-26 06:54 | XMS_ITS | Continuity of Care Document ---
Author Organization [facility] Address [address] [facility] [address] [place] [address] Phone Care Team Providers Care Emergency Preparedness Coordinator Name Role Phone Tarik Villa OD Unavailable [...] Abnormal Flag Status Commen ts Panel Description: [id number] Final Image Zeiss Result 1 Panel Description: [id number] Final Image Zeiss Result 2 Advance Directives Directive Yes / No Effective Date File Name No Information Encounters Encounter Description Practice Location Reason(s) For Visit Diagnoses Date Provider Providers Copied on Encounter [facility], [address] [place] [address], [id number], [place] tel:[phone] [facility] Double Vision (chief complaint) Dry [...] detachment of both eyes 5 Daisy Montanez. [address] [place] [address], [address], [place], [place], [id number], [place]. tel:[phone] [facility], [address] [place] [address] [address], [place], [place], [id number], [place] tel:[phone] [facility] PCO (posterior capsular opacification) , bilateralKerat oconjunctiviti s sicca, not specified as Sjogren's, bilateralSquam ous blepharitis right eye, upper and lower eyelidsSquamou s blepharitis left eye, upper and lower eyelidsMeibomi an gland dysfunction right eye, upper and lower eyelidsMeibomi an gland dysfunction left eye, upper and lower eyelidsDiplopi aSalzmann nodular degeneration of cornea of left eyePseudophaki a of both eyes Daisy Montanez. [address] [facility], [address], [place], [place], [id number], [place]. tel:[phone] Family History Family Member Type Diagnosis Age At Onset Problem Family history o f Family history: Cataract (situation)Family history of heart failure (situation) Payers Payer name Insurance type Covered green party ID Authoriza tion(s) [place]IC[place] OF [place] MB [id number] [facility] [id number] Social History Type Description Quantity Date Captured [...] states eyes are dry pt is using [facility]. Reason For Referral Reason [...] states eyes are dry pt is using [facility]. Functional Status Date Functional [...]
--- OUTSIDE RECORDS SUMMARY | 2025-01-26 06:54 | XMS_ITS | Continuity of Care Document ---
Author Organization [facility] Address [address] [place] [address] Phone Care Team Providers Care Rehab Manager Name Role Phone Rodrigues OD, Aidan [...] Provider Providers Copied on Encounter [facility], [address] [place] [address] [address], [place], [place], [id number], tel:[phone] [facility] No Information Sep-1 8-200 7 Rodrigues OD Aidan. [address] , [address], [place], [place], [facility], [place]. tel:[phone] [facility], [address] [place] [address] [address], [place], [place], [id number], [place] tel:[phone] [facility] No Information Sep-0 6-200 7 Rodrigues OD Aidan. [address], [address], [place], [facility], [place]. tel:[phone] [facility], [address] [place] [address] [address], [place], [place], [id number], [place] tel:[phone] [facility] No Information 0-200 7 Rodrigues OD Aidan. [address] , [address], [place], [address], [place]. tel:[phone] [facility], [address], [place], [place], [id number], [place] tel:[phone] [facility] No Information 6-200 7 Rodrigues OD Aidan. [address] [facility] , [address], [place], [address], [place]. tel:[phone] Family History Family Member Type Diagnosis Age At Onset No Information Payers Payer name Insurance type Covered libertarian ID Pearl vicentejune(s) [place] FEP BL [id number] Social History Type Description Quantity Date Captured [...]
--- OUTSIDE RECORDS SUMMARY | 2025-01-26 06:54 | XMS_ITS | Clinical Summary ---
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 Gender Identity Not on file Sexual Orientation Not on file Plan of Treatment Health Maintenance Due Date Last Done Comments Colorectal Cancer Screening Colonoscopy (10 Years) 1949 Hepatitis C 1967 Pneumococcal Vaccine: 50+ Years (1 of 1 - PCV) 1999 Annual Medicare Wellness Visit 2014 Dexa Scan (General) 2014 COVID-19 Vaccine ( - 2023-2 5 season) 2024 04/18/2021, 07/31/2020, 07/10/2020 DTaP, [...] MEDICARE [facility] Care Teams Counter Pocket Sewer Relationship Specialty Start Date End Date Tay Enamorado MD [address] [place] [id number] PCP - General INTERNAL MEDICINE 06/15/24
--- OUTSIDE RECORDS SUMMARY | 2025-01-26 06:54 | XMS_ITS | Clinical Summary ---
Author Organization [facility] Address [address] [place] [address] Care Team Providers Care Tutorial Laboratory Supervisor Name Role Phone MeghanAmanuelRickzachary Gray DO Primary Care Provider [phone] Source Comments [facility],non-owned Affiliates and Associated Physician Practices is amultiple site organization consisting of ambulatory clinics and hospital sitesin [place], [place], [place] and [place]. This disclosure is being madepursuant to the Care Everywhere program and may not contain all information available regarding this patient. Last updated 18.[facility] Allergies No known active allergies Medications * Be aware that medications may not be up to date on this document. Alwaysverify current medications with the patient. carvedilol (COREG) 12.5 MG tablet Take 12.5 mg by mouth 2 times daily with breakfast and dinner. Active lisinopril-hydr ochlorothiazide (PRINZIDE; ZESTORETIC) 20-12.5 MG tablet Take 1 Tab by mouth daily. Active levocetirizine (XYZAL) 5 MG tablet Take 5 mg by mouth daily. Active calcium citrate-vitamin D (CITRACAL PLUS D) 315-200 MG-UNIT tablet Take 1 Tab by mouth once daily. 1 Active vitamin E (TOCOPHERYL) 400 UNIT capsule Take 400 Units by mouth 2 times daily. 1 Active vitamin D, cholecalciferol , 1000 UNIT tablet Take 2,000 Units by mouth daily. Active triamcinolone (NASACORT AQ) 55 MCG/ACT nasal inhaler [place] 2 Sprays into each nostril daily. Active ibuprofen (MOTRIN) 600 MG tablet Take 1 Tab by mouth every 6 hours as needed for Pain. 30 Tab 1 1 Active potassium chloride (KLOR-CON) 10 MEQ tablet Take 10 mEq by mouth 2 times daily. 2 TABS Active ibuprofen (MOTRIN) 600 MG tablet Take 1 Tab by mouth every 6 hours as needed for Pain. 30 Tab 0 1 Active oxycodone-aceta minophen (PERCOCET) 5-325 MG tablet Take 1-2 Tabs by mouth every 6 hours as needed for Pain. 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 Gender Identity Not on file Sexual Orientation [...] 11:53 AM CDT Height 167.6 cm (5' 6) 02/05/2016 11:53 AM CDT Body Mass Index [...] SCREENING 1950 LIPID TESTING 1950 MAMMOGRAM 1950 HEPATITIS C SCREENING 02/17/1967 DTAP/TDAP/TD VACCINES (1 - Tdap) 02/22/1968 PNEUMOCOCCAL VACCINE 50+ (1 of 1 - PCV) 1999 ZOSTER VACCINE (1 of 2) 1999 Respiratory Syncytial Virus (RSV) Vaccine Pt: or over 60 yrs (1 - 1-dose 75+ series) 02/22/2024 COVID-19 VACCINE (1 - 2023-2 5 season) 2024 DEPRESSION SCREENING 07/20/2024 INFLUENZA VACCINE (#1) 2025 HEPATITIS B VACCINE Aged Out No [...] age to complete this topic Insurance MEDICARE [facility] Advance Directives Documents on File Type Date Recorded Patient Nonprofit Manager Expl anation Adv Directive/Living Will/POA 10/10/2010 12:59 PM * Full Code (Latest Code Status on File) Date Activated Date Inactivated Comments 10/07/2010 12:14 PM 10/10/2010 4:05 AM Care Teams Tutorial Laboratory Supervisor Relationship Specialty Start Date End Date Rick Christianson DO [address] [address] PCP - General 06/01/18
[2025-01-26 07:27] LABS: Hematocrit 37.6 % (37.0-47.0); Hemoglobin 12.2 g/dL (12.0-15.0); Immature Granulocyte Percent A 0.2 % (0-0.5); Lymphocytes Absolute Auto 1.49 K/mm3 (0.9-3.2); Mean Corpuscular HGB Conc 32.4 g/dl (32-36); Mean Corpuscular Hemoglobin 31.0 pg (26-34); Mean Corpuscular Volume 95.4 fl (80-100); Nucleated Red Blood Cells Absolute Auto 0.000 K/mm3 (0.0-0.012); Nucleated Red Blood Cells Perc 0.0 % (0.0-0.2); Platelet Count Result 197 k/mm3 (150-375); Red Blood Count 3.94 M/mm3 (4.2-5.4); White Blood Count 4.5 K/mm3 (4.5-10.0)
[2025-01-26 07:39] LABS: Alanine Aminotransferase 16 U/L (6-35); Albumin Level 3.8 g/dL (3.5-5.1); Alkaline Phosphatase 57 U/L (38-126); Anion Gap 6 mmol/L (4-12); Aspartate Amino Transferase 27 U/L (14-36); Bilirubin,Total 0.8 mg/dL (0.2-1.3); Blood Urea Nitrogen 15 mg/dL (7-17); Calcium 9.2 mg/dL (8.4-10.2); Carbon Dioxide 28 mmol/L (22-30); Chloride 103 mmol/L (98-107); Cholesterol 160 mg/dL (0-200); Estimated Glomerular Filt Rate > 60; Glucose 132 mg/dL (65-110); HDL Direct 65 mg/dL; Potassium 3.7 mmol/L (3.4-5.0); Sodium 137 mmol/L (137-145); Total Protein 6.0 g/dL (6.3-8.2); Triglycerides 89 mg/dL (<150)
[2025-01-26 07:40] LABS: Hemoglobin A1C 5.9 % (<5.7)
[2025-01-26 07:57] LABS: Free T4 Free Thyroxine 1.21 ng/dL (0.78-2.19)
[2025-01-26 08:09] LABS: Thyroid Stimulating Hormone 1.900 uIU/mL (0.465-4.680)
== END 2025-01-26 06:50 | disposition home or self-care (01) ==
PROVIDERS: PCP Internal Medicine; Visit Provider Internal Medicine
DX: E78.2 Mixed hyperlipidemia (principal); I10 Essential (primary) hypertension; Z79.899 Other long term (current) drug therapy; Z13.29 Encounter for screening for other suspected endocrine disorder; R73.03 Prediabetes
CPT/HCPCS: 36415; 80053; 80061; 83036; 84439; 84443; 85025

== ENCOUNTER 2025-02-08 12:21 | Outpatient (CLI) | payer MEDICARE, BC, SELFPAY ==
--- OUTSIDE RECORDS SUMMARY | 2025-02-08 12:27 | XMS_ITS | Clinical Summary ---
Author Organization [facility] Address [address] [place] [address] Care Team Providers Care Adult Manager Name Role Phone MeghanAmanuelRickzachary Gray DO Primary Care Provider [phone] Source Comments [facility],non-owned Affiliates and Associated Physician Practices is amultiple site organization consisting of ambulatory clinics and hospital sitesin [place], [place], [place] and [place]. This disclosure is being madepursuant to the Care Everywhere program and may not contain all information available regarding this patient. Last updated 18.[facility] Allergies No known active allergies Medications * [...] triamcinolone (NASACORT AQ) 55 MCG/ACT nasal inhaler [place] 2 Sprays into each nostril daily. 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
--- OUTSIDE RECORDS SUMMARY | 2025-02-08 12:27 | XMS_ITS | Clinical Summary ---
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
== END 2025-02-08 12:22 | disposition home or self-care (01) ==
LOC: ANHSURGERY 12:26
PROVIDERS: PCP Internal Medicine; Visit Provider Orthopaedic Surgery
DX: Z01.812 Encounter for preprocedural laboratory examination (principal); M17.12 Unilateral primary osteoarthritis, left knee
CPT/HCPCS: 80307; 86850; 86880; 86900; 86901; 86902; 87070

== ENCOUNTER 2025-02-16 00:24 | Day surgery (SDC) | payer MEDICARE, BC, SELFPAY ==
--- NOTE | 2025-02-08 11:12 | PC.NURSE ---
Report to the Outpatient Waiting Room, entrance under the green pavilion located off [facility], at time _6 AM on date _02/16/25 . Planned Procedure Time: __7:30 AM .? Time changes happen often and if your time is changed the preop area will call you the afternoon before. - You and your visitor will be asked to self-screen and do not enter if you have any COVID symptoms. Please call surgeon if you need to reschedule. - A mask is optional within the hospital at this time. Patients may have clear liquids (water, carbonated beverages, clear teas, apple juice) until 3 hours prior to surgery ( 4:30 AM) with a maximum of 20 ounces. - No food from midnight until time of surgery and no smoking, or chewing tobacco (or any form of nicotine). No chewing gum, candy or mints. - Take only the following medications with a SIP of water on the morning of surgery: _CARVEDILOL,HYDRALAZINE DO NOT STOP ANY OF YOUR OTHER PRESCRIPTION MEDICATIONS PRIOR TO SURGERY EXCEPT THE FOLLOWING Hold all vitamins and supplements for 3 days per anesthesiologist. LAST DOSE 02/12/25 Medications to discontinue per physician NONE PT STATES PER DR TERRY DO NOT STOP ASPIRIN MAY CONTINUE CELECOXIB PER DR TERRY Please no make-up, nail moroccan, hairspray, perfume, deodorant, or body powder the day of surgery.? No jewelry (including any body piercings) or valuables the day of surgery, leave them at home.? Please take a shower or bath the night before, or the morning of, surgery with an antibacterial soap.? Wear comfortable, loose fitting clothing.? Children are encouraged to wear pajamas. - Jewelry must be removed prior to entering the operating room.? Rings and piercings that are not removed may be cut off. - The hospital will not accept responsibility for valuables.? - Please leave all valuables, including medications, at home the day of surgery. If you are going home after surgery, a licensed driver material handler must drive you home.? - NO public transportation without another adult if you receive anesthesia. - We recommend that an adult stay with you for 24 hours following discharge. - We also recommend that you do not drive, make important decision, drink alcoholic beverages, or take any drugs that were not prescribed by your health care provider for at least 24 hours after your discharge time. For Pediatric surgeries, we recommend two adults accompany the child home. Follow any additional instructions given to you from your surgeon. Telephone instructions given to __PATIENT and asked if any additional questions and then verbalized understanding. Patient advised to call surgeon office or pre surgery nurse liaison [phone] if any additional questions.
[2025-02-08 11:36] VITALS: BMI 34.0
--- NOTE | 2025-02-15 14:37 | WPDANESEPPF ---
Anes - Initial Pre Proc Eval Procedure: Operation Date: 02/16/25 07:30 Proposed Procedures p Left Total Knee Arthroplasty - Alvaro Hunt MD Date/Time: 02/15/25 14:37 Surgeon: Alvaro Hunt MD Pre Op Diagnosis: oa left knee Patient Data Age: 74 Gender: F Height: 1.65 m Weight: 92.8 kg Allergies Allergy/AdvReac Type Severity Reaction Status Date / Time No Known Allergies Allergy Verified 02/08/25 11:11 Home Medications ?Medication ?Instructions ?Recorded ?Confirmed ?Type cholecalciferol (vitamin D3) 50 2,000 unit PO DAILY 07/21/19 02/08/25 History mcg (2,000 unit) tablet valacyclovir 500 mg tablet 500 mg PO TID PRN fever blisters 07/31/23 02/08/25 Rx (Valtrex) #25 tabs lovastatin 10 mg tablet See Rx Instructions .Route 05/16/24 02/08/25 Rx .COMPLEX #90 tabs cranberry 500 mg capsule 2,500 mg PO BID 08/04/24 02/08/25 History hydralazine 25 mg tablet 25 mg PO BID #180 tabs 08/04/24 02/08/25 Rx hydrochlorothiazide 25 mg tablet 25 mg PO DAILY #90 tabs 09/29/24 02/08/25 Rx irbesartan 300 mg tablet 300 mg PO DAILY #90 tabs 09/29/24 02/08/25 Rx acetaminophen 325 mg tablet 650 mg (2 x 325 mg) PO Q4H #90 tabs 10/21/24 02/08/25 Rx magnesium oxide 400 mg (241.3 mg See Rx Instructions .Route 10/31/24 02/08/25 Rx magnesium) tablet .COMPLEX #90 tabs carvedilol 25 mg tablet See Rx Instructions .Route 01/02/25 02/08/25 Rx .COMPLEX #180 tabs celecoxib 100 mg capsule (Celebrex) 100 mg PO DAILY #30 caps 01/19/25 02/08/25 Rx potassium chloride 10 mEq See Rx Instructions .Route 01/30/25 02/08/25 Rx tablet,extended release .COMPLEX #180 tabs aspirin 81 mg tablet,delayed 81 mg PO DAILY 02/08/25 02/08/25 History release (Adult Low Dose Aspirin) Results Review: All pre-operative results and documents have been reviewed as part of the pre-operative evaluation. [facility] Past Medical History Medical History AK (actinic keratosis) BMI 33.0-33.9,adult Breast cancer screening CAD (coronary artery disease) Cataracts, bilateral Colon cancer screening Diastolic dysfunction DJD (degenerative joint disease) of knee Dry mouth Encounter for Medicare annual wellness exam Encounter for routine adult health examination with abnormal findings Encounter for routine adult health examination without abnormal findings Encounter to establish care Essential hypertension Family history of coronary artery disease Fatty liver Hearing loss Hx of ovarian cancer S/P right salpingectomy and oophorectomy Hypersomnia Mitral valve regurgitation Mixed hyperlipidemia Myalgia On support coordinator drug therapy Pre-diabetes RBBB (right bundle branch block) Trigger finger of both hands Surgical History Surgical History History of appendectomy History of knee surgery History of left knee surgery History of right knee surgery History of total hysterectomy S/P cataract surgery w/lens implants Family History Family History Father Acute myocardial infarction Mother Family history of cardiovascular disease Family history of arthritis Family history of heart disease in male family member before age 55 Sibling Pulmonary embolism Other Family history of malignant neoplasm Hypertension Social History Social History Smoking status: Never smoker Second hand tobacco smoke exposure: Yes Additional smoking assessment comments: DENIES ANY FORM OF TOBACCO Alcohol intake: current Drinks per week: 5 Alcohol use details: 2 DRINKS PER MONTH Substance use: never Substance use type: does not use Current Housing: Decline to Answer Concerned About Future Housing: Decline to Answer Difficulty Paying Gas/Electric Bills: Decline to Answer Difficulty Paying for Meds: Decline to Answer Currently Unemployed: Decline to Answer Education: Decline to Answer Difficulty w/ Childcare or Family Care: Decline to Answer Living arrangements: with family Additional living arrangements comments: Son 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 Informed Consent: The patient's anesthetic plan and its attendant risks and benefits were discussed with the patient/family/POA. Questions were solicited and answers provided to the satisfaction of the patient/family/POA.
--- NOTE | 2025-02-15 16:20 | P.HP_ITS ---
H&P: HPI History of Present Illness Date/Time: 02/15/25 16:20 Chief Complaint: Left knee DJD Narrative: 74-year-old female presents today for left total knee arthroplasty. She underwent right total knee arthroplasty on 10/20 of this year. She had excellent recovery and is happy with her results. She did have a cortisone injection at the time of the surgery in her left knee. It has been over 3 months at this point. Patient has severe lateral compartment osteoarthritis. She feels she has recovered well from her right total knee and is ready proceed with the left. Review of Systems Review of Systems: All systems reviewed & are unremarkable except as noted in HPI and below PMFSH Past Medical History Medical History AK (actinic keratosis) BMI 33.0-33.9,adult Breast cancer screening CAD (coronary artery disease) Cataracts, bilateral Colon cancer screening Diastolic dysfunction DJD (degenerative joint disease) of knee Dry mouth Encounter for Medicare annual wellness exam Encounter for routine adult health examination with abnormal findings Encounter for routine adult health examination without abnormal findings Encounter to establish care Essential hypertension Family history of coronary artery disease Fatty liver Hearing loss Hx of ovarian cancer S/P right salpingectomy and oophorectomy Hypersomnia Mitral valve regurgitation Mixed hyperlipidemia Myalgia On terminal carman drug therapy Pre-diabetes RBBB (right bundle branch block) Trigger finger of both hands Surgical History Surgical History History of appendectomy History of knee surgery History of left knee surgery History of right knee surgery History of total hysterectomy S/P cataract surgery w/lens implants Family History Family History Father Acute myocardial infarction Mother Family history of cardiovascular disease Family history of arthritis Family history of heart disease in male family member before age 55 Sibling Pulmonary embolism Other Family history of malignant neoplasm Hypertension Social History Social History Smoking status: Never smoker Second hand tobacco smoke exposure: Yes Additional smoking assessment comments: DENIES ANY FORM OF TOBACCO Alcohol intake: current Drinks per week: 5 Alcohol use details: 2 DRINKS PER MONTH Substance use: never Substance use type: does not use Current Housing: Decline to Answer Concerned About Future Housing: Decline to Answer Difficulty Paying Gas/Electric Bills: Decline to Answer Difficulty Paying for Meds: Decline to Answer Currently Unemployed: Decline to Answer Education: Decline to Answer Difficulty w/ Childcare or Family Care: Decline to Answer Living arrangements: with family Additional living arrangements comments: Son 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 Gender identity (if verbalized by the patient): Female Spiritual care concerns: No Meds Home Medications and Allergies Home Medications ?Medication ?Instructions ?Recorded ?Confirmed ?Type cholecalciferol (vitamin D3) 50 2,000 unit PO DAILY 07/21/19 02/08/25 History mcg (2,000 unit) tablet valacyclovir 500 mg tablet 500 mg PO TID PRN fever blisters 07/31/23 02/08/25 Rx (Valtrex) #25 tabs lovastatin 10 mg tablet See Rx Instructions .Route 05/16/24 02/08/25 Rx .COMPLEX #90 tabs cranberry 500 mg capsule 2,500 mg PO BID 08/04/24 02/08/25 History hydralazine 25 mg tablet 25 mg PO BID #180 tabs 08/04/24 02/08/25 Rx hydrochlorothiazide 25 mg tablet 25 mg PO DAILY #90 tabs 09/29/24 02/08/25 Rx irbesartan 300 mg tablet 300 mg PO DAILY #90 tabs 09/29/24 02/08/25 Rx acetaminophen 325 mg tablet 650 mg (2 x 325 mg) PO Q4H #90 tabs 10/21/24 02/08/25 Rx magnesium oxide 400 mg (241.3 mg See Rx Instructions .Route 10/31/24 02/08/25 Rx magnesium) tablet .COMPLEX #90 tabs carvedilol 25 mg tablet See Rx Instructions .Route 01/02/25 02/08/25 Rx .COMPLEX #180 tabs celecoxib 100 mg capsule (Celebrex) 100 mg PO DAILY #30 caps 01/19/25 02/08/25 Rx potassium chloride 10 mEq See Rx Instructions .Route 01/30/25 02/08/25 Rx tablet,extended release .COMPLEX #180 tabs aspirin 81 mg tablet,delayed 81 mg PO DAILY 02/08/25 02/08/25 History release (Adult Low Dose Aspirin) Allergies Allergy/AdvReac Type Severity Reaction Status Date / Time No Known Allergies Allergy Verified 02/08/25 11:11 Exam Narrative: 74-year-old female alert pleasant. BMI is 31.8. Her left knee she has an obvious valgus deformity. Range of motion is from 5-135 degrees. Trace effusion. Notable laxity to valgus stress medially. She does correct to neutral with varus stress to the knee. Hip range of motion is full without discomfort, negative Stinchfield maneuver. She has normal quad strength. She has normal ankle dorsiflexion, eversion and inversion. 2+ dorsalis pedis pulse palpable. Normal sensation left lower extremity. No edema. Resp: Auscultation: clear to auscultation bilaterally Cardio: Rate: regular rate Rhythm: regular rhythm Assessment and Plan Assessment and plan (1) Primary osteoarthritis of left knee: Code(s): M17.12 - Unilateral primary osteoarthritis, left knee Status: Acute Plan 74-year-old female who has severe lateral compartment osteoarthritis with significant valgus deformity. Again patient feels she has recovered well from the right total knee arthroplasty in October and is for ready to proceed with the left. Surgical procedures well as risks and complications were reviewed all questions were answered and we will proceed. Patient will continue with her Celebrex up patella time surgery. She will also maintain her baby aspirin through the time surgery due to history of coronary artery disease. Patient's nasal swab was negative. Hemoglobin 12.2 and platelets were 197. Chem panel was within normal limits creatinine is 0.84.
[2025-02-16] VITALS (16 sets, daily range): BP systolic 109–154; BP diastolic 49–72; PULSE 58–77; RESP 14–20; TEMP 35.9–36.9; O2SAT 93–100; BMI 32.3
--- NOTE | ~2025-02-16 | XR_ITS ---
EXAMINATION: [id number] DATE: 02/16/2025 12:26 CDT INDICATION: Right total knee arthroplasty TECHNIQUE: 2 views right knee FINDINGS: There is a right] total knee arthroplasty in expected position. Subcutaneous gas with flui d and air in the joint are consistent with recent surgery. No evidence of periprosthetic fracture. IMPRESSION: 1. Recent right total knee arthroplasty. Reviewed, dictated and finalized at location B.
--- OUTSIDE RECORDS SUMMARY | 2025-02-16 00:27 | XMS_ITS | Continuity of Care Document ---
Author Organization [facility] Address [address] [place] [address] Phone Care Team Providers Care Cheese Weigher Name Role Phone Rodrigues OD, Aidan Unavailable [...] Diagnoses Date Provider Providers Copied on Encounter [facility], [address] [place] [address] [address], [place], [place], [id number], tel:[phone] [facility] No Information Sep-1 8-200 7 Rodrigues OD Aidan. [address] , [address], [place], [place], [facility], [place]. tel:[phone] [facility], [address] [place] [address] [address], [place], [place], [id number], [place] tel:[phone] [facility] No Information Sep-0 6-200 7 Rodrigues OD Aidan. [address], [address], [place], [place], [facility], [place]. tel:[phone] [facility], [address] [place] [address] [address], [place], [place], [id number], [place] tel:[phone] [facility] No Information 0-200 7 Rodrigues OD Aidan. [address] , [address], [place], [address], [place]. tel:[phone] [facility], [address], [place], [place], [id number], [place] tel:[phone] [facility] No Information 6-200 7 Rodrigues OD Aidan. [address] , [address], [place], [address], [place]. tel:[phone] Family History Family Member Type Diagnosis Age At Onset No Information Payers Payer name Insurance type Covered constitution party ID Pearl vicentejune(s) [place] FEP BL [id number] Social History Type Description Quantity Date Captured [...]
--- OUTSIDE RECORDS SUMMARY | 2025-02-16 00:27 | XMS_ITS | Clinical Summary ---
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
--- OUTSIDE RECORDS SUMMARY | 2025-02-16 00:27 | XMS_ITS | Clinical Summary ---
Author Organization [facility] [employer] Address [address] [place] [address] Care Team Providers Care Surgical Instruments Inspector Name Role Phone MeghanAmanuelRickzachary Gray DO Primary Care Provider Source Comments [facility],non-owned Affiliates and Associated Physician Practices is amultiple site organization consisting of ambulatory clinics and hospital sitesin [place], [place], [place] and [place]. This disclosure is being madepursuant to the Care Everywhere program and may not contain all information available regarding this patient. Last updated 18.[facility] [employer] Allergies No known active allergies Medications * [...] triamcinolone (NASACORT AQ) 55 MCG/ACT nasal inhaler [place] 2 Sprays into each nostril daily. 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 Gender Identity Not on file Sexual Orientation [...] age to complete this topic Insurance MEDICARE [facility] Advance Directives Documents on File Type Date Recorded Patient Biostatistician Expl anation Adv Directive/Living Will/POA 10/10/2010 12:59 PM * Full Code (Latest Code Status on File) Date Activated Date Inactivated Comments 10/07/2010 12:14 PM 10/10/2010 4:05 AM Care Teams Surgical Instruments Inspector Relationship Specialty Start Date End Date Rick Christianson DO [address] [facility] [address] PCP - General 06/01/18
--- OUTSIDE RECORDS SUMMARY | 2025-02-16 00:27 | XMS_ITS | Continuity of Care Document ---
Author Organization [facility] Address [address] [place] [address] Phone Care Team Providers Care Brood Station Manager Name Role Phone Tarik Villa OD Unavailable [...] Abnormal Flag Status Commen ts Panel Description: [id number] Final Image Zeiss Result 1 Panel Description: [id number] Final Image Zeiss Result 2 Advance Directives Directive Yes / No Effective Date File Name No Information Encounters Encounter Description Practice Location Reason(s) For Visit Diagnoses Date Provider Providers Copied on Encounter [facility], [address] [place] [address], [id number], [place] tel:[phone] [facility] [...] detachment of both eyes 5 Daisy Montanez. [address] [place] [address], [address], [place], [place], [id number], [place]. tel:[phone] [facility], [address] [place] [address] [address], [place], [place], [id number], [place] tel:[phone] [facility] PCO (posterior capsular opacification) , bilateralKerat oconjunctiviti s sicca, not specified as Sjogren's, bilateralSquam ous blepharitis right eye, upper and lower eyelidsSquamou s blepharitis left eye, upper and lower eyelidsMeibomi an gland dysfunction right eye, upper and lower eyelidsMeibomi an gland dysfunction left eye, upper and lower eyelidsDiplopi aSalzmann nodular degeneration of cornea of left eyePseudophaki a of both eyes Daisy Montanez. [address] [facility], [address], [place], [place], [id number], [place]. tel:[phone] Family History Family Member Type Diagnosis Age At Onset Problem Family history o f Family history: Cataract (situation)Family history of heart failure (situation) Payers Payer name Insurance type Covered republican ID Authoriza tion(s) [place]ICARE OF [place] MB [id number] [facility] [id number] Social History Type Description Quantity Date Captured [...] states eyes are dry pt is using [facility] BID -TID [facility]. Reason For Referral Reason [...] states eyes are dry pt is using [facility]. Functional Status Date Functional [...]
[2025-02-16] MEDS: VANCOMYCIN 1,500 MG/NS 500 ML 1,500 MG/500 ML BAG 250 MG IVPB (06:30)
[2025-02-16] MEDS: LACTATED RINGERS 1,000 ML 30 ML IV CONT ×2 (06:30→11:42)
[2025-02-16] MEDS: TRANEXAMIC ACID 1,000MG/ISO100 1,000 MG/100 ML BAG 200 MG IVPB (07:00)
[2025-02-16] MEDS: ACETAMINOPHEN 500 MG TABLET 1000 MG PO (07:00)
--- NOTE | 2025-02-16 07:15 | WPDHPUPDATE1 ---
History and Physical Update Update Date/Time: 02/16/25 07:15 History and Physical has been reviewed, including an updated exam of the patient. There are NO changes in the patient's condition. Risks, benefits, and alternatives have been discussed and questions answered. Patient agrees to proceed with procedure.
--- NOTE | 2025-02-16 07:17 | WPDANESEPPF ---
Anes - Initial Pre Proc Eval Procedure: Operation Date: 02/16/25 07:30 Proposed Procedures p Left Total Knee Arthroplasty - Alvaro Hunt MD Date/Time: 02/16/25 07:17 Surgeon: Alvaro Hunt MD Pre Op Diagnosis: oa left knee Patient Data Age: 74 Gender: F Height: 1.65 m Weight: 92.8 kg Allergies Allergy/AdvReac Type Severity Reaction Status Date / Time No Known Allergies Allergy Verified 02/08/25 11:11 Home Medications ?Medication ?Instructions ?Recorded ?Confirmed ?Type cholecalciferol (vitamin D3) 50 2,000 unit PO DAILY 07/21/19 02/08/25 History mcg (2,000 unit) tablet valacyclovir 500 mg tablet 500 mg PO TID PRN fever blisters 07/31/23 02/08/25 Rx (Valtrex) #25 tabs lovastatin 10 mg tablet See Rx Instructions .Route 05/16/24 02/08/25 Rx .COMPLEX #90 tabs cranberry 500 mg capsule 2,500 mg PO BID 08/04/24 02/08/25 History hydralazine 25 mg tablet 25 mg PO BID #180 tabs 08/04/24 02/08/25 Rx hydrochlorothiazide 25 mg tablet 25 mg PO DAILY #90 tabs 09/29/24 02/08/25 Rx irbesartan 300 mg tablet 300 mg PO DAILY #90 tabs 09/29/24 02/08/25 Rx acetaminophen 325 mg tablet 650 mg (2 x 325 mg) PO Q4H #90 tabs 10/21/24 02/08/25 Rx magnesium oxide 400 mg (241.3 mg See Rx Instructions .Route 10/31/24 02/08/25 Rx magnesium) tablet .COMPLEX #90 tabs carvedilol 25 mg tablet See Rx Instructions .Route 01/02/25 02/08/25 Rx .COMPLEX #180 tabs celecoxib 100 mg capsule (Celebrex) 100 mg PO DAILY #30 caps 01/19/25 02/08/25 Rx potassium chloride 10 mEq See Rx Instructions .Route 01/30/25 02/08/25 Rx tablet,extended release .COMPLEX #180 tabs aspirin 81 mg tablet,delayed 81 mg PO DAILY 02/08/25 02/08/25 History release (Adult Low Dose Aspirin) Patient hx anesthesia problems: none Family hx anesthesia problems: none Results Review: All pre-operative results and documents have been reviewed as part of the pre-operative evaluation. [facility] Past Medical History Medical History Hx of ovarian cancer S/P right salpingectomy and oophorectomy CAD (coronary artery disease) Encounter for routine adult health examination with abnormal findings Trigger finger of both hands Cataracts, bilateral Breast cancer screening Hearing loss Encounter for Medicare annual wellness exam Mitral valve regurgitation Fatty liver BMI 33.0-33.9,adult Family history of coronary artery disease Hypersomnia Mixed hyperlipidemia Dry mouth Diastolic dysfunction DJD (degenerative joint disease) of knee Pre-diabetes Encounter for routine adult health examination without abnormal findings RBBB (right bundle branch block) Colon cancer screening Encounter to establish care On usp drug therapy AK (actinic keratosis) Essential hypertension Myalgia Surgical History Surgical History History of knee surgery S/P cataract surgery w/lens implants History of right knee surgery History of left knee surgery History of appendectomy History of total hysterectomy Family History Family History Father Acute myocardial infarction Mother Family history of cardiovascular disease Family history of arthritis Family history of heart disease in male family member before age 55 Sibling Pulmonary embolism Other Family history of malignant neoplasm Hypertension Social History Social History Smoking status: Never smoker Second hand tobacco smoke exposure: Yes Additional smoking assessment comments: DENIES ANY FORM OF TOBACCO Alcohol intake: current Drinks per week: 5 Alcohol use details: 2 DRINKS PER MONTH Substance use: never Substance use type: does not use Current Housing: Decline to Answer Concerned About Future Housing: Decline to Answer Difficulty Paying Gas/Electric Bills: Decline to Answer Difficulty Paying for Meds: Decline to Answer Currently Unemployed: Decline to Answer Education: Decline to Answer Difficulty w/ Childcare or Family Care: Decline to Answer Living arrangements: with family Additional living arrangements comments: Son 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 Informed Consent: The patient's anesthetic plan and its attendant risks and benefits were discussed with the patient/family/POA. Questions were solicited and answers provided to the satisfaction of the patient/family/POA.
[2025-02-16] MEDS: ceFAZolin 2 GM in SODIUM CHLORIDE 0.9% IV 50 ML 100 ML IVPB (07:26)
[2025-02-16] MEDS: SODIUM CHLORIDE 0.9% IV 37.7 ML, MORPHINE SULFATE INJ (*CRX) 2 MG, ROPivacaine HCL 1% 2... INFILTRATE (08:10)
[2025-02-16] MEDS: KETOROLAC 15 MG/ML VIAL (*BKC) 7.5 MG IV PUSH (10:37)
[2025-02-16] MEDS: TRANEXAMIC ACID 1,000 MG/10 ML AMPUL 1000 MG IV PUSH (10:37)
--- NOTE | 2025-02-16 11:39 | W.PM.PROC2 ---
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 She received 2 g of Ancef weight based vancomycin 1 g of TXA preoperatively. The left leg was prepped draped usual fashion. Under anesthesia she continued to have about a 5 degree flexion contracture. Limb was exsanguinated tourniquet elevated to 300 mmHg. A 7 in longitudinal midline incision was used and a standard parapatellar arthrotomy utilized. Partial excision of infrapatellar fat pad performed quadriceps synovectomy carried out suprapatellar fat pad excised. The patella head prominent osteophytes but normal articular cartilage centrally. Osteophytes were debrided. A guide asha was inserted on femoral canal after aspiration of canal contents using the 4 degree valgus cutting bushing. This was the angle estimated to give us a 5 degree valgus cut relative to the axis of the intramedullary canal. 10 mm of bone removed the distal femur. This removed about 4 laterally. Next the tibial plateau was cut. Initially a skim cut was made which removed less than a mm from the low point of lateral tibial plateau. The medial side was too tight to accept an 8 mm spacer at 90? therefore an additional 1.5 mm bone was removed. Cut was made perpendicular to the axis of the tibia. With this performed, the medial flexion gap measured 8 mm lateral gap 12 mm. Femoral sizing guide was applied to the distal femur set at 5? of external rotation which matched Whitesides line. Posterior referencing pinholes were placed. We had to flex the distal femoral cut a little bit to make the anterior cut with the 72.5 cutting block without notching. We could see that 72.5 would be far too wide. Therefore we placed another 2 or 3? of flexion on the distal femoral cut and with this performed we applied the size 70 femoral cutting block and this gave us a flush cut with the anterior cortex without notching. Posterior chamfer cuts were made. The 70 was a little bit wide overhanging about 2 mm laterally. We inserted the 10 CR trial on the 71 tray and the knee lacked about 15? of extension with play medially and excessive tightness laterally as expected predicted based on her 20 degree valgus deformity preop. The iliotibial band and lateral capsule was released 1 cm from the tibial cut surface and the posterolateral capsule released at the level of the joint line, releasing the capsule anterior to the lateral collateral ligament but preserving the lateral collateral and and releasing this to the popliteus tendon which was also left intact. Additional 2 mm of bone raise removed the distal femur chamfer cuts revisited. The tibia was sized to a 71 which fit line to line anteromedial to posterolateral at proper rotation this was punched. Bone quality was excellent at the tibial plateau and femoral surfaces. Trialing with the 10 mm 5 and 1 insert, at 90? we had appropriate anterior drawer stability based on the soft tissue tension laterally. In extension we lacked about 3?-4? of extension and the medial side could be distracted 5 or 6 mm no play in the lateral side. The posterior femoral bone proximal to the posterior the aspect of the femoral trial was removed and posterior capsule release performed from the distal femur. On re- trialing the knee came close to full extension but still had a positive bounce and no play laterally in extension with varus stress therefore an additional mm of bone was removed the distal femur chamfer cuts revisited. With the additional removal of distal femur, the degree of overhang of the femoral component was reduced to about 1 mm laterally flush with the medial side. On trialing the knee now came out to full extension with the 5 in 110 mm insert with a mm of play laterally and negative bounce. The anterior drawer stability was appropriate. As we had excessive laxity medially, the size 70 femoral trial from the 360 degree set was applied to the distal femur and pinned in place and the bone for the intercondylar box was removed to accommodate the SSK femur. Boss hole was made. With this performed we inserted the intramedullary asha in the femur with a 5 degree valgus wing and this demonstrated 5 degree valgus alignment of the distal femur relative to the canal. We trialed with the SSK post assembled to the tibial poly trial and there was full extension,near perfect patellar tracking and appropriate anterior drawer stability at 90? and 70? of flexion. No subluxation. The patella demonstrated impingement on the post of the tibial insert had about 120? therefore I felt that patellar resurfacing would be best. Patella measured 25 mm in thickness and was cut to 17 mm and all drilled for the 34 mm x 7.8 mm patellar button which gave composite thickness of 25 mm. A protector cap was placed on the patella. We had put the tourniquet down earlier at 90 minutes and at this time the limb was exsanguinated and tourniquet elevated to 300 mmHg. Trial components removed. A 24 mm box cement restrictor inserted the appropriate depth in the femoral canal any bony surfaces were prepped with a step drill. Bony surfaces thoroughly irrigated and dried. Using 2 batches of methylmethacrylate 1 with gentamicin powder, cement was immediately applied the size 71 tibial component and then the size 70 SSK femoral component. Cement applied the tibial plateau pressurized tibial component fully seated cement applied the femur and in to the intramedullary canal in the femoral component fully seated the knee brought into extension with 11 mm 5 1 insert for pressurization. The 34 x 7.8 mm patellar button was cemented. Tourniquet was released total tourniquet time approximately 110 minutes. After cement hardening excess cement was carefully sought for removed and hemostasis was achieved. The 12 mm 5 and 1 insert was far too tight in flexion. The 10 mm insert with SSK post was trialed which gave a negative bounce and extension and gravity flexion to 135 without patellar impingement. With the arthrotomy approximated with 2 towel clips we found appropriate anterior stability in all positions. Patellar tracking was close to perfect. An additional 2 cm of lateral retinacular release proximal to the transverse release of lateral capsule was performed which gave perfect patellar tracking. The real 10 mm SSK poly was placed locked in the locking clip range of motion stability patellar tracking reconfirmed. Local anesthetic cocktail was injected into the periarticular soft tissues. Arthrotomy was closed with 2. Vicryl was and 1. Unidirectional barbed Stratafix suture. Skin closed with 2 subcutaneous Vicryl 3-0 subcuticular Monocryl and glue. EBL was estimated at 200 cc. Patient was transferred postop recovery room in good condition. No known complications. [facility] Billing Surgery - Charge Forward: Surgery Billing (Left total knee arthroplasty)
--- NOTE | 2025-02-16 11:50 | PM.OP ---
Procedure Note - Brief Procedure Note - Brief Date of procedure: 02/16/25 oa left knee Procedure performed: Left total knee arthroplasty Surgeon: CELINA Jones Findings: 74-year-old female underwent left total knee arthroplasty on 02/16. I was involved in the procedure including positioning the patient on the OR table in 1st assisting through the time surgery. Total time spent was 3-1/2 hours
--- NOTE | 2025-02-16 13:36 | ADMGEN ---
This patient, Gayle Ventura, was admitted to Medical Room 257-01. Patient/family oriented to hospital policies and general routines including ID bracelet, bed and alarms, visiting hours, pain management, procedures, bathroom and other care routines, personal items, smoking policy, room service/diet, and visiting hours. Information on how to activate the Rapid Response Team has been discussed. Patient/Family are encouraged to report perceived risks to care and to ask questions if they do not understand what they are told or what they should do.
[2025-02-16] MEDS: oxyCODONE HCL (*CRX) 2.5 MG TAB IR PO ×2 (13:51→17:31)
[2025-02-16] MEDS: ACETAMINOPHEN 325 MG TABLET 650 MG PO ×2 (13:51→17:32)
[2025-02-16] MEDS: ceFAZolin 2 GM/D5W 50 ML 2 GM/50 ML BAG IVPB ×2 (14:15→23:00)
--- NOTE | 2025-02-16 17:20 | P.CONIM_ITS ---
Assessment and Plan Assessment and plan (1) Primary osteoarthritis of left knee: Code(s): M17.12 - Unilateral primary osteoarthritis, left knee Status: Acute Assessment and Plan: Status post OR 02/16/2025 Orthopedics managing Pain control by Orthopedics Postop antibiotics Eliquis for VTE (2) Essential hypertension: Code(s): I10 - Essential (primary) hypertension Status: Chronic Assessment and Plan: Holding home hydrochlorothiazide (3) Mixed hyperlipidemia: Code(s): E78.2 - Mixed hyperlipidemia Status: Acute Assessment and Plan: Continue statin (4) Diastolic dysfunction: Code(s): I51.89 - Other ill-defined heart diseases Status: Acute Assessment and Plan: Not on diuretics appears to be euvolemic HPI Date of Consult Consult date: 02/16/25 Requesting Physician: Alvaro Hunt MD Primary Care Provider: Tay Enamorado MD Consult Narrative Narrative: Gayle Ventura is a 74 year old female with history of left knee osteoarthritis presents the hospital for a planned left total knee arthroplasty today. Patient is seen after OR. Hospital team has been consulted for medical management. Patient states she has no nausea vomiting. She is able to tolerate food and pain is well controlled. She has no complaints at this time. Review of Systems Review of Systems: 12 systems were reviewed and are negativ e except for as per HPI. [facility], [facility] Past Medical History Medical History Hx of ovarian cancer S/P right salpingectomy and oophorectomy CAD (coronary artery disease) Encounter for routine adult health examination with abnormal findings Trigger finger of both hands Cataracts, bilateral Breast cancer screening Hearing loss Encounter for Medicare annual wellness exam Mitral valve regurgitation Fatty liver BMI 33.0-33.9,adult Family history of coronary artery disease Hypersomnia Mixed hyperlipidemia Dry mouth Diastolic dysfunction DJD (degenerative joint disease) of knee Pre-diabetes Encounter for routine adult health examination without abnormal findings RBBB (right bundle branch block) Colon cancer screening Encounter to establish care On manager terminal drug therapy AK (actinic keratosis) Essential hypertension Myalgia Surgical History Surgical History History of knee surgery S/P cataract surgery w/lens implants History of right knee surgery History of left knee surgery History of appendectomy History of total hysterectomy Family History Family History Father Acute myocardial infarction Mother Family history of cardiovascular disease Family history of arthritis Family history of heart disease in male family member before age 55 Sibling Pulmonary embolism Other Family history of malignant neoplasm Hypertension Social History Social History Smoking status: Never smoker Second hand tobacco smoke exposure: Yes Additional smoking assessment comments: DENIES ANY FORM OF TOBACCO Alcohol intake: current Drinks per week: 2 Alcohol use details: 2 DRINKS PER MONTH Substance use: never Substance use type: does not use Lack of Transportation: No Lack of Food: Never True Current Housing: I Have Housing Concerned About Future Housing: No Difficulty Paying Gas/Electric Bills: No Difficulty Paying for Meds: No Currently Unemployed: No Education: Associate Degree Difficulty w/ Childcare or Family Care: No Living arrangements: with family Additional living arrangements comments: Son 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 Gender identity (if verbalized by the patient): Female Spiritual care concerns: No Meds Home Medications and Allergies Home Medications ?Medication ?Instructions ?Recorded ?Confirmed ?Type cholecalciferol (vitamin D3) 50 2,000 unit PO DAILY 07/21/19 02/16/25 History mcg (2,000 unit) tablet valacyclovir 500 mg tablet 500 mg PO TID PRN fever blisters 07/31/23 02/16/25 Rx (Valtrex) #25 tabs lovastatin 10 mg tablet See Rx Instructions .Route 05/16/24 02/16/25 Rx .COMPLEX #90 tabs cranberry 500 mg capsule 2,500 mg PO BID 08/04/24 02/16/25 History hydralazine 25 mg tablet 25 mg PO BID #180 tabs 08/04/24 02/16/25 Rx hydrochlorothiazide 25 mg tablet 25 mg PO DAILY #90 tabs 09/29/24 02/16/25 Rx irbesartan 300 mg tablet 300 mg PO DAILY #90 tabs 09/29/24 02/16/25 Rx acetaminophen 325 mg tablet 650 mg (2 x 325 mg) PO Q4H #90 tabs 10/21/24 02/16/25 Rx magnesium oxide 400 mg (241.3 mg See Rx Instructions .Route 10/31/24 02/16/25 Rx magnesium) tablet .COMPLEX #90 tabs carvedilol 25 mg tablet See Rx Instructions .Route 01/02/25 02/16/25 Rx .COMPLEX #180 tabs celecoxib 100 mg capsule (Celebrex) 100 mg PO DAILY #30 caps 01/19/25 02/16/25 Rx potassium chloride 10 mEq See Rx Instructions .Route 01/30/25 02/16/25 Rx tablet,extended release .COMPLEX #180 tabs aspirin 81 mg tablet,delayed 81 mg PO DAILY 02/08/25 02/16/25 History release (Adult Low Dose Aspirin) Allergies Allergy/AdvReac Type Severity Reaction Status Date / Time No Known Allergies Allergy Verified 02/16/25 07:21 Vital Signs Vital Signs - 24 hr 02/16/25 07:24 02/16/25 11:42 02/16/25 11:55 Temperature 96.7 F L 98.5 F Pulse Rate 66 58 L 63 Respiratory Rate 16 14 16 Blood Pressure 154/61 H 109/49 L 125/58 L Pulse Oximetry 98 97 100 Oxygen Delivery Room Air Simple Face Mask Simple Face Mask Oxygen Flow Rate 6 6 02/16/25 12:10 02/16/25 12:25 02/16/25 12:40 Temperature 98.1 F Pulse Rate 66 65 66 Respiratory Rate 18 16 16 Blood Pressure 128/65 125/61 124/72 Pulse Oximetry 100 94 98 Oxygen Delivery Room Air Room Air Room Air Oxygen Flow Rate 02/16/25 12:55 02/16/25 13:04 02/16/25 13:49 Temperature 97.7 F Pulse Rate 68 73 69 Respiratory Rate 14 14 14 Blood Pressure 129/62 142/63 H 135/53 L Pulse Oximetry 98 97 98 Oxygen Delivery Room Air Oxygen Flow Rate 02/16/25 13:52 02/16/25 14:20 02/16/25 14:42 Temperature Pulse Rate 70 Respiratory Rate Blood Pressure 136/68 Pulse Oximetry 96 93 Oxygen Delivery Room Air Room Air Oxygen Flow Rate 02/16/25 15:09 02/16/25 15:52 Temperature Pulse Rate 68 Respiratory Rate 14 Blood Pressure 131/60 Pulse Oximetry 98 Oxygen Delivery Room Air Oxygen Flow Rate Exam Narrative: General: well appearing, appears stated age. HEENT: normocephalic, atraumatic. Mucous membranes moist. EOMI, PERRLA, bilateral sclera anicteric, no conjunctival injection. Neck supple without JVD, lymphadenopathy, or bruit. Respiratory: clear to ascultation bilaterally. No rales/rhonic/wheezes. Cardiovascular: Regular rate and rhythm, normal S1-S2 upon ascultation. No murmurs, rubs, or clicks. PMI is nondisplaced, capillary refill less than 3 second. Abdomen: Soft, round, no pulsatile masses, nondistended and nontender. No rebound, no guarding. No CVA tenderness, no hepatosplenomegaly. Bowel sounds present to all four quadrants. No high pitch or tinkling sounds, resonant to percussion. Extremities: No cyanosis, clubbing, or edema present. Pulses are palpable 2/2. Left lower extremity surgical dressing in place clean dry and intact Neuro: Alert and orientated x 4. PERRLA. Cranial nerves 2-12 intact without focal deficit. Skin: Warm, dry, and intact, without rash, erythema, or lesion. Psych: pleasant, cooperative, normal speech, normal affect, no hallucinations, no dysarthia Quality VTE Prophylaxis VTE prophylaxis: mechanical ordered and pharmacologic ordered Hospitalist MIPS Advance Care Plan I have confirmed that the patient's Advanced Care Plan is present, code status is documented, or surrogate decision maker is listed in patient medical record.: Yes Medication Reconciliation I have utilized all available resources to obtain, update and review the patients current medications (includes all prescriptions, OTC, herbals, cannabis, and nutritional supplements).: Yes
[2025-02-16] MEDS: POTASSIUM CHLORIDE 10 MEQ ER TABLET BY MOUTH (17:31)
[2025-02-16] MEDS: SENNA/DOCUSATE SODIUM TABLET 2 TAB PO (17:31)
[2025-02-16] MEDS: VANCOMYCIN HCL 1,000 MG in SODIUM CHLORIDE 0.9% IV 250 ML 250 MG IVPB (17:48)
[2025-02-16] MEDS: FAMOTIDINE 20 MG TABLET PO (20:46)
--- NOTE | 2025-02-17 00:52 | PC.NURSE ---
PT CONTINUES TO DENY THE NEED FOR PAIN MEDIATION. EDUCATED ON IMPORTANCE OF MANAGING PAIN BEFORE IT GETS TOO BAD PT STATED SHE DID NOT TAKE ANY PAIN MEDICATION WITH HER LAST KNEE REPAIR EITHER. RATES PAIN AT 0
[2025-02-17] MEDS: oxyCODONE HCL (*CRX) 2.5 MG TAB IR PO ×2 (02:54→09:56)
[2025-02-17] MEDS: ACETAMINOPHEN 325 MG TABLET 650 MG PO ×2 (02:54→09:51)
[2025-02-17] MEDS: VANCOMYCIN HCL 1,000 MG in SODIUM CHLORIDE 0.9% IV 250 ML 250 MG IVPB (04:59)
[2025-02-17 05:16] LABS: Hematocrit 30.9 % (37.0-47.0); Hemoglobin 10.0 g/dL (12.0-15.0); Immature Granulocyte Percent A 0.4 % (0-0.5); Lymphocytes Absolute Auto 1.08 K/mm3 (0.9-3.2); Mean Corpuscular HGB Conc 32.4 g/dl (32-36); Mean Corpuscular Hemoglobin 31.3 pg (26-34); Mean Corpuscular Volume 96.9 fl (80-100); Nucleated Red Blood Cells Absolute Auto 0.000 K/mm3 (0.0-0.012); Nucleated Red Blood Cells Perc 0.0 % (0.0-0.2); Platelet Count Result 154 k/mm3 (150-375); Red Blood Count 3.19 M/mm3 (4.2-5.4); White Blood Count 13.7 K/mm3 (4.5-10.0)
[2025-02-17 05:35] LABS: Anion Gap 5 mmol/L (4-12); Blood Urea Nitrogen 15 mg/dL (7-17); Calcium 8.4 mg/dL (8.4-10.2); Carbon Dioxide 24 mmol/L (22-30); Chloride 106 mmol/L (98-107); Estimated CRCL calculation 52 ml/min; Estimated Glomerular Filt Rate > 60; Glucose 123 mg/dL (65-110); Potassium 3.6 mmol/L (3.4-5.0); Sodium 135 mmol/L (137-145)
[2025-02-17] MEDS: ceFAZolin 2 GM/D5W 50 ML 2 GM/50 ML BAG IVPB (06:26)
[2025-02-17 06:49] VITALS: BP 139/62; PULSE 70; RESP 16; TEMP 36.4; O2SAT 97
--- NOTE | 2025-02-17 06:53 | PC.NURSE ---
PT AGAIN DENIED THE NEED FOR TAMIKA PAIN MEDICATION. REINFORCED EDUCATION ON PAIN MANAGEMENT. PT HAS BEEN UP WALKING TO THE BATHROOM AND HAS COMPLAINED OF MINIMAL PAIN ALL NIGHT. CURRENTLY SITTING UP IN THE CHAIR. CALL LIGHT IN REACH.
--- NOTE | 2025-02-17 07:24 | P.PNOP_ITS ---
Subjective Subjective Date/Time Seen: 02/17/25 07:24 Interval history: Postop day 1 patient is afebrile vital signs are stable. Morning labs are noted. Patient is alert. Pain is well controlled. Dressing is dry and intact. Neurovascularly she is intact. She was up walking yesterday with physical therapy. She has been up to the restroom overnight urinating well. Overall patient states she feels good and is very happy with the way she is doing so far. She is anxious to go home later today. She will see therapy this morning and then once IV antibiotics been completed she will be discharged home late this morning. Objective Data Vital Signs Vital Signs: Vital Signs - 24 hr 02/16/25 11:42 02/16/25 11:55 02/16/25 12:10 Temperature 98.5 F Pulse Rate 58 L 63 66 Respiratory Rate 14 16 18 Blood Pressure 109/49 L 125/58 L 128/65 Pulse Oximetry 97 100 100 Oxygen Delivery Simple Face Mask Simple Face Mask Room Air Oxygen Flow Rate 6 6 Fraction of Inspired Oxygen 02/16/25 12:25 02/16/25 12:40 02/16/25 12:55 Temperature 98.1 F Pulse Rate 65 66 68 Respiratory Rate 16 16 14 Blood Pressure 125/61 124/72 129/62 Pulse Oximetry 94 98 98 Oxygen Delivery Room Air Room Air Room Air Oxygen Flow Rate Fraction of Inspired Oxygen 02/16/25 13:04 02/16/25 13:49 02/16/25 13:52 Temperature 97.7 F Pulse Rate 73 69 Respiratory Rate 14 14 Blood Pressure 142/63 H 135/53 L Pulse Oximetry 97 98 Oxygen Delivery Room Air Oxygen Flow Rate Fraction of Inspired Oxygen 02/16/25 14:20 02/16/25 14:42 02/16/25 15:09 Temperature Pulse Rate 70 Respiratory Rate Blood Pressure 136/68 Pulse Oximetry 96 93 Oxygen Delivery Room Air Room Air Oxygen Flow Rate Fraction of Inspired Oxygen 02/16/25 15:52 02/16/25 18:41 02/16/25 20:00 Temperature Pulse Rate 68 77 Respiratory Rate 14 Blood Pressure 131/60 138/59 L Pulse Oximetry 98 97 Oxygen Delivery Room Air Oxygen Flow Rate Fraction of Inspired Oxygen 02/16/25 20:46 02/16/25 21:31 02/16/25 22:10 Temperature 97.6 F Pulse Rate 70 74 68 Respiratory Rate 20 14 Blood Pressure 122/57 L Pulse Oximetry 95 97 Oxygen Delivery Room Air Oxygen Flow Rate Fraction of Inspired Oxygen 21 02/17/25 06:49 Temperature 97.6 F Pulse Rate 70 Respiratory Rate 16 Blood Pressure 139/62 Pulse Oximetry 97 Oxygen Delivery Oxygen Flow Rate Fraction of Inspired Oxygen Intake/Output Intake/Output: Intake & Output 02/14/25 02/15/25 02/16/25 02/17/25 23:59 23:59 23:59 23:59 Intake Total 1040 Balance 1040 Meds/Results Medications: Active Medications Generic Name Dose Route Start Last Admin Trade Name Freq PRN Reason Stop Dose Admin Acetaminophen 650 mg 02/16/25 14:00 02/17/25 06:52 Acetaminophen 325 Mg Tablet PO Not Given Q4H [facility] Apixaban 2.5 mg 02/17/25 09:00 Apixaban 2.5 Mg Tablet PO 02/28/25 21:01 Q12HR [facility] Aspirin 81 mg 02/17/25 09:00 Aspirin 81 Mg Enteric Tablet PO DAILY [facility] Carvedilol 25 mg 02/16/25 21:00 02/16/25 20:46 Carvedilol 25 Mg Tablet BY MOUTH 25 mg Q12HR [facility] Administration Cefdinir 300 mg 02/17/25 09:00 Cefdinir 300 Mg Capsule PO Q12HR [facility] Celecoxib 100 mg 02/17/25 09:00 Celecoxib 100 Mg Capsule PO DAILY [facility] Diphenhydramine HCl 25 mg 02/16/25 13:04 Diphenhydramine Hcl Inj 50 Mg/Ml Vial IV PUSH Q6H PRN Itching Famotidine 20 mg 02/16/25 21:00 02/16/25 20:46 Famotidine 20 Mg Tablet PO 20 mg Q12HR [facility] Administration Hydralazine HCl 25 mg 02/16/25 17:00 02/16/25 17:32 Hydralazine Hcl 25 Mg Tablet PO 25 mg BID TAMIKA Administration Cefazolin Sodium 2 gm in 50 mls @ 100 mls/hr 02/16/25 15:00 02/17/25 06:26 Ancef 2 Gm/D5w 50 Ml IVPB 02/17/25 07:29 100 mls/hr Q8H TAMIKA Administration Irbesartan 300 mg 02/17/25 09:00 Irbesartan 150 Mg Tablet PO DAILY [facility] Lovastatin 10 mg 02/17/25 09:00 Lovastatin 10 Mg Tablet BY MOUTH QAM [facility] Morphine Sulfate 2 mg 02/16/25 13:04 Morphine Sulfate (*Crx) 2 Mg/Ml Inj IV PUSH Q2H PRN Breakthrough Pain Rated 4-6 or NPO Naloxone HCl 0.1 mg 02/16/25 13:04 Naloxone Hcl 0.4 Mg/Ml Vial IV PUSH Q2M PRN Opiate Reversal Ondansetron HCl 4 mg 02/16/25 13:04 Ondansetron Inj 4 Mg/2 Ml Vial IV PUSH Q4H PRN Nausea And Vomiting Oxycodone HCl 2.5 mg 02/16/25 14:00 02/17/25 06:52 Oxycodone Hcl (*Crx) 2.5 Mg Tab Ir PO Not Given Q4H TAMIKA Oxycodone HCl 2.5 mg 02/16/25 13:04 Oxycodone Hcl (*Crx) 2.5 Mg Tab Ir PO Q4H PRN Pain Rated 4-6 Polyethylene Glycol 17 gm 02/17/25 09:00 Polyethylene Glycol 3350 17 Gm Powd.Pack PO QAM [facility] Potassium Chloride 10 meq 02/16/25 17:00 02/16/25 17:31 Potassium Chloride 10 Meq Er Tablet BY MOUTH 10 meq BIDWM [facility] Administration Senna/Docusate Sodium 2 tab 02/16/25 17:00 02/16/25 17:31 Senna/Docusate Sodium Tablet PO 2 tab BID TAMIKA Administration Vitamin D 50 mcg 02/17/25 09:00 Cholecalciferol (Vitamin D3) 25 Mcg (1,000 Units) Tablet PO DAILY [facility] Radiology Results: ITS Impressions Knee X-Ray 02/16/25 12:26 IMPRESSION: 1. Recent right total knee arthroplasty. Labs Labs: Laboratory Results - last 24 hr 02/17/25 04:32 WBC 13.7 H RBC 3.19 L Hgb 10.0 L Hct 30.9 L MCV 96.9 MCH 31.3 MCHC 32.4 RDW 12.1 Plt Count 154 MPV 11.0 H Immature Gran % (Auto) 0.4 Neut % (Auto) 75.4 H Lymph % (Auto) 7.9 L [place] % (Auto) 16.2 H Eos % (Auto) 0.0 Baso % (Auto) 0.1 L Lymph # (Auto) 1.08 [place] # (Auto) 2.2 H Eos # (Auto) 0.0 Baso # (Auto) 0.0 Abs Immat Gran (auto) 0.05 H Absolute Neuts (auto) 10.3 H Absolute Nucleated RBC 0.000 Nucleated RBC % 0.0 Sodium 135 L Potassium 3.6 Chloride 106 Carbon Dioxide 24 Anion Gap 5 BUN 15 Creatinine 0.90 Estim Creat Clear Calc 52 Estimated GFR > 60 Glucose 123 H Calcium 8.4
--- NOTE | 2025-02-17 07:38 | P.CONIM_ITS ---
Assessment and Plan Assessment and plan (1) Primary osteoarthritis of left knee: Code(s): M17.12 - Unilateral primary osteoarthritis, left knee Status: Acute Assessment and Plan: Status post OR 02/16/2025 Orthopedics managing Pain control by Orthopedics Postop antibiotics Eliquis for VTE (2) Essential hypertension: Code(s): I10 - Essential (primary) hypertension Status: Chronic Assessment and Plan: Holding home hydrochlorothiazide (3) Mixed hyperlipidemia: Code(s): E78.2 - Mixed hyperlipidemia Status: Acute Assessment and Plan: Continue statin (4) Diastolic dysfunction: Code(s): I51.89 - Other ill-defined heart diseases Status: Acute Assessment and Plan: Not on diuretics appears to be euvolemic HPI Date of Consult Consult date: 02/17/25 Requesting Physician: Alvaro Hunt MD Primary Care Provider: Tay Enamorado MD Consult Narrative Narrative: Gayle Ventura is a 74 year old female with history of left knee osteoarthritis presents the hospital for a planned left total knee arthroplasty yesterday. Hospital team has been consulted for medical management. Ortho cleared pt for discharge today. Pt examined and had no complaints or concerns. Ortho team providing discharge instructions and follow up. Review of Systems 2 Review of Systems: 12 systems were reviewed and are negativ e except for as per HPI. [facility] Past Medical History Medical History Hx of ovarian cancer S/P right salpingectomy and oophorectomy CAD (coronary artery disease) Encounter for routine adult health examination with abnormal findings Trigger finger of both hands Cataracts, bilateral Breast cancer screening Hearing loss Encounter for Medicare annual wellness exam Mitral valve regurgitation Fatty liver BMI 33.0-33.9,adult Family history of coronary artery disease Hypersomnia Mixed hyperlipidemia Dry mouth Diastolic dysfunction DJD (degenerative joint disease) of knee Pre-diabetes Encounter for routine adult health examination without abnormal findings RBBB (right bundle branch block) Colon cancer screening Encounter to establish care On halfway drug therapy AK (actinic keratosis) Essential hypertension Myalgia Surgical History Surgical History History of knee surgery S/P cataract surgery w/lens implants History of right knee surgery History of left knee surgery History of appendectomy History of total hysterectomy Family History Family History Father Acute myocardial infarction Mother Family history of cardiovascular disease Family history of arthritis Family history of heart disease in male family member before age 55 Sibling Pulmonary embolism Other Family history of malignant neoplasm Hypertension Social History Social History Smoking status: Never smoker Second hand tobacco smoke exposure: Yes Additional smoking assessment comments: DENIES ANY FORM OF TOBACCO Alcohol intake: current Drinks per week: 2 Alcohol use details: 2 DRINKS PER MONTH Substance use: never Substance use type: does not use Lack of Transportation: No Lack of Food: Never True Current Housing: I Have Housing Concerned About Future Housing: No Difficulty Paying Gas/Electric Bills: No Difficulty Paying for Meds: No Currently Unemployed: No Education: Associate Degree Difficulty w/ Childcare or Family Care: No Living arrangements: with family Additional living arrangements comments: Son 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[employer] Gender identity (if verbalized by the patient): Female Spiritual care concerns: No Meds Home Medications and Allergies Home Medications ?Medication ?Instructions ?Recorded ?Confirmed ?Type cholecalciferol (vitamin D3) 50 2,000 unit PO DAILY 07/21/19 02/16/25 History mcg (2,000 unit) tablet valacyclovir 500 mg tablet 500 mg PO TID PRN fever blisters 07/31/23 02/16/25 Rx (Valtrex) #25 tabs cranberry 500 mg capsule 2,500 mg PO BID 08/04/24 02/16/25 History hydralazine 25 mg tablet 25 mg PO BID #180 tabs 08/04/24 02/16/25 Rx hydrochlorothiazide 25 mg tablet 25 mg PO DAILY #90 tabs 09/29/24 02/16/25 Rx irbesartan 300 mg tablet 300 mg PO DAILY #90 tabs 09/29/24 02/16/25 Rx magnesium oxide 400 mg (241.3 mg See Rx Instructions .Route 10/31/24 02/16/25 Rx magnesium) tablet .COMPLEX #90 tabs carvedilol 25 mg tablet See Rx Instructions .Route 01/02/25 02/16/25 Rx .COMPLEX #180 tabs potassium chloride 10 mEq See Rx Instructions .Route 01/30/25 02/16/25 Rx tablet,extended release .COMPLEX #180 tabs aspirin 81 mg tablet,delayed 81 mg PO DAILY 02/08/25 02/16/25 History release (Adult Low Dose Aspirin) acetaminophen 325 mg tablet 650 mg (2 x 325 mg) PO Q4H #90 tabs 02/17/25 Rx apixaban 2.5 mg tablet (Eliquis) 2.5 mg PO Q12HR #28 tabs 02/17/25 Rx cefdinir 300 mg capsule 300 mg PO Q12HR #14 caps 02/17/25 Rx celecoxib 100 mg capsule (Celebrex) 100 mg PO DAILY #60 caps 02/17/25 Rx lovastatin 10 mg tablet See Rx Instructions .Route 02/17/25 Rx .COMPLEX #90 tabs polyethylene glycol 3350 17 gram 17 g PO QAM #30 ea 02/17/25 Rx oral powder packet (Miralax) sennosides 8.6 mg-docusate sodium 2 tab PO BID #60 tabs 02/17/25 Rx 50 mg tablet (Senokot-S) Allergies Allergy/AdvReac Type Severity Reaction Status Date / Time No Known Allergies Allergy Verified 02/16/25 07:21 Vital Signs Vital Signs - 24 hr 02/16/25 11:42 07/31/25 11:55 02/16/25 12:10 Temperature 98.5 F Pulse Rate 58 L 63 66 Respiratory Rate 14 16 18 Blood Pressure 109/49 L 125/58 L 128/65 Pulse Oximetry 97 100 100 Oxygen Delivery Simple Face Mask Simple Face Mask Room Air Oxygen Flow Rate 6 6 Fraction of Inspired Oxygen 02/16/25 12:25 02/16/25 12:40 02/16/25 12:55 Temperature 98.1 F Pulse Rate 65 66 68 Respiratory Rate 16 16 14 Blood Pressure 125/61 124/72 129/62 Pulse Oximetry 94 98 98 Oxygen Delivery Room Air Room Air Room Air Oxygen Flow Rate Fraction of Inspired Oxygen 02/16/25 13:04 02/16/25 13:49 02/16/25 13:52 Temperature 97.7 F Pulse Rate 73 69 Respiratory Rate 14 14 Blood Pressure 142/63 H 135/53 L Pulse Oximetry 97 98 Oxygen Delivery Room Air Oxygen Flow Rate Fraction of Inspired Oxygen 02/16/25 14:20 02/16/25 14:42 02/16/25 15:09 Temperature Pulse Rate 70 Respiratory Rate Blood Pressure 136/68 Pulse Oximetry 96 93 Oxygen Delivery Room Air Room Air Oxygen Flow Rate Fraction of Inspired Oxygen 02/16/25 15:52 02/16/25 18:41 02/16/25 20:00 Temperature Pulse Rate 68 77 Respiratory Rate 14 Blood Pressure 131/60 138/59 L Pulse Oximetry 98 97 Oxygen Delivery Room Air Oxygen Flow Rate Fraction of Inspired Oxygen 02/16/25 20:46 02/16/25 21:31 02/16/25 22:10 Temperature 97.6 F Pulse Rate 70 74 68 Respiratory Rate 20 14 Blood Pressure 122/57 L Pulse Oximetry 95 97 Oxygen Delivery Room Air Oxygen Flow Rate Fraction of Inspired Oxygen 21 02/17/25 06:49 Temperature 97.6 F Pulse Rate 70 Respiratory Rate 16 Blood Pressure 139/62 Pulse Oximetry 97 Oxygen Delivery Oxygen Flow Rate Fraction of Inspired Oxygen Exam 2 Narrative: General: well appearing, appears stated age. HEENT: normocephalic, atraumatic. Mucous membranes moist. EOMI, PERRLA, bilateral sclera anicteric, no conjunctival injection. Neck supple without JVD, lymphadenopathy, or bruit. Respiratory: clear to ascultation bilaterally. No rales/rhonic/wheezes. Cardiovascular: Regular rate and rhythm, normal S1-S2 upon ascultation. No murmurs, rubs, or clicks. PMI is nondisplaced, capillary refill less than 3 second. Abdomen: Soft, round, no pulsatile masses, nondistended and nontender. No rebound, no guarding. No CVA tenderness, no hepatosplenomegaly. Bowel sounds present to all four quadrants. No high pitch or tinkling sounds, resonant to percussion. Extremities: No cyanosis, clubbing, or edema present. Pulses are palpable 2/2. Left lower extremity surgical dressing in place clean dry and intact Neuro: Alert and orientated x 4. PERRLA. Cranial nerves 2-12 intact without focal deficit. Skin: Warm, dry, and intact, without rash, erythema, or lesion. Psych: pleasant, cooperative, normal speech, normal affect, no hallucinations, no dysarthia Results Labs 02/17/25 04:32 02/17/25 04:32 Labs: Short CBC 02/17/25 Range/Units 04:32 WBC 13.7 H (4.5-10.0) K/mm3 Hgb 10.0 L (12.0-15.0) g/dL Hct 30.9 L (37.0-47.0) % Plt Count 154 (150-375) k/mm3 [facility] 02/17/25 04:32 Sodium 135 L Potassium 3.6 Chloride 106 Carbon Dioxide 24 BUN 15 Creatinine 0.90 Glucose 123 H Calcium 8.4 Quality VTE Prophylaxis VTE prophylaxis: mechanical ordered and pharmacologic ordered
[2025-02-17 09:48] VITALS: PULSE 75
[2025-02-17] MEDS: IRBESARTAN 150 MG TABLET 300 MG PO (09:48)
[2025-02-17] MEDS: CELECOXIB 100 MG CAPSULE PO (09:49)
[2025-02-17] MEDS: ASPIRIN 81 MG ENTERIC TABLET PO (09:49)
[2025-02-17] MEDS: APIXABAN 2.5 MG TABLET PO (09:49)
[2025-02-17] MEDS: CHOLECALCIFEROL (VITAMIN D3) 25 MCG (1,000 UNITS) TABLET 50 MCG PO (09:51)
[2025-02-17] MEDS: CEFDINIR 300 MG CAPSULE PO (09:51)
[2025-02-17] MEDS: FAMOTIDINE 20 MG TABLET PO (09:51)
[2025-02-17] MEDS: LOVASTATIN 10 MG TABLET BY MOUTH (09:51)
[2025-02-17] MEDS: POTASSIUM CHLORIDE 10 MEQ ER TABLET BY MOUTH (09:51)
[2025-02-17] MEDS: SENNA/DOCUSATE SODIUM TABLET 2 TAB PO (09:51)
== END 2025-02-17 11:00 | disposition home or self-care (01) ==
LOC: ANHSURGERY 05:53 → ANH2MED 13:13
PROVIDERS: Physician Assistant Surgical; PCP Internal Medicine; Visit Provider Orthopaedic Surgery
PROC: (CPT 27447; principal; 2025-02-16 07:30)
DX: M17.12 Unilateral primary osteoarthritis, left knee (principal); I25.10 Atherosclerotic heart disease of native coronary artery without angina pectoris; I11.0 Hypertensive heart disease with heart failure; I50.30 Unspecified diastolic (congestive) heart failure; G47.10 Hypersomnia, unspecified; E78.2 Mixed hyperlipidemia; R73.03 Prediabetes; L57.0 Actinic keratosis; M17.10 Unilateral primary osteoarthritis, unspecified knee; I34.0 Nonrheumatic mitral (valve) insufficiency; I45.10 Unspecified right bundle-branch block; E66.9 Obesity, unspecified; Z68.32 Body mass index [BMI] 32.0-32.9, adult; Z79.1 Long term (current) use of non-steroidal anti-inflammatories (NSAID); Z79.82 Long term (current) use of aspirin; Z79.899 Other long term (current) drug therapy; Z98.890 Other specified postprocedural states; Z96.651 Presence of right artificial knee joint; Z85.43 Personal history of malignant neoplasm of ovary; Z80.9 Family history of malignant neoplasm, unspecified; Z82.49 Family history of ischemic heart disease and other diseases of the circulatory system
CPT/HCPCS: 27447; 36415; 73560; 80048; 85025; 97110; 97161; 97165; 97530; J0690; A9270; C1713; C1770; C1776; J0166; J0330; J1100; J1885; J2003; J2270; J2405; J2704; J2795; J3010; J3373; J7050; J7120

== ENCOUNTER 2025-04-04 08:32 | Outpatient (CLI) | payer MEDICARE, BC, SELFPAY ==
--- OUTSIDE RECORDS SUMMARY | 2007-04-06 11:18 | XMS_ITS | Continuity of Care Document ---
Author Organization [facility] Address [address] [place] [address] Phone Care Team Providers Care Program Support Clerk Name Role Phone Rodrigues OD, Aidan Unavailable [...] Diagnoses Date Provider Providers Copied on Encounter [facility], [address] [place] [address] [address], [place], [place], [address], tel:[phone] [facility] No Information Sep-1 8-200 7 Rodrigues OD Aidan. [address], [place], [facility], [place]. tel:[phone] [facility], [address] [place] [address] [address], [place], [place], [address], [place] tel:[phone] [facility] No Information Sep-0 6-200 7 Rodrigues OD Aidan. [address], [address], [place], [facility], [place]. tel:[phone] [facility], [address] [place] [address] [address], [place], [place], [address], [place] tel:[phone] [facility] No Information 0-200 7 Rodrigues OD Aidan. [address] , [address], [place], [address], [place]. tel:[phone] [facility], [address], [place], [place], [address], [place] tel:[phone] [facility] No Information 6-200 7 Rodrigues OD Aidan. [address] [facility] , [address], [place], [address], [place]. tel:[phone] Family History Family Member Type Diagnosis Age At Onset No Information Payers Payer name Insurance type Covered libertarian ID Pearl vicentejune(s) [place] [id number] Social History Type Description Quantity Date Captured [...]
--- OUTSIDE RECORDS SUMMARY | 2024-12-19 04:15 | XMS_ITS | Continuity of Care Document ---
Author Organization [facility] Address [address] [facility] [address] [place] [address] Phone Care Team Providers Care Environmental Safety Specialist Name Role Phone Tarik Villa OD Unavailable Unavailable Allergies, Adverse Reactions, Alerts Substance Reaction Status Criticality pollen extracts Active No Informati on Medications Medication Instructions Dosage Effective Dates (start - stop) Status Comments lovastatin 10 mg tablet - Ac tive magnesium oxide 400 mg (241.3 mg magnesium) tablet TAKE 1 TABLET BY MOUTH DAILY - Active potassium chloride ER 10 mEq tablet,extended release TAKE 1 TABLET BY MOUTH TWICE DAILY - Active hydralazine 25 mg tablet - A ctive hydrochlorothiazide 25 mg tablet - Active irbesartan 300 mg tablet TAKE 1 TABLET B Y MOUTH DAILY - Active cefdinir 300 mg capsule TAKE 1 CAPSULE BY MOUTH EVERY 12 HOURS - Active celecoxib 100 mg capsule - A ctive Pain Reliever (acetaminophen) 325 mg tablet TAKE TWO TABLET BY MOUTH EVERY 4 HOURS - Active polyethylene glycol 3350 17 gram oral powder packet TAKE ONE PACKET BY MOUTH EVERY MORNING - Active carvedilol 25 mg tablet TAKE 1 TABLET BY MOUTH EVERY 12 HOURS. DISCONTINUE THE COREG 12.5 - Active doxycycline hyclate 100 mg tablet - Active irbesartan 300 mg-hydrochlorothiazide 12.5 mg tablet - Active celecoxib 200 mg capsule - A ctive nebivolol 10 mg tablet TAKE 1 TABLET BY MOUTH DAILY. DISCONTINUE THE AMLODIPINE. THANK YOU - Active amlodipine 2.5 mg tablet TAKE 1 TABLET B Y MOUTH DAILY - Active benzonatate 200 mg capsule - Active oasis tears (unknown strength) 1 drop TID-BID OU Not Available - Active Eliquis 2.5 mg tablet TAKE 1 TABLET BY MOUTH EVERY 12 HOURS - No Longer Active oxycodone 5 mg tablet - No Longer Active Procedures Procedure Date FUNDUS PHOTOGRAPHY MICROFLUID SANJANA TEARS EYE EXAM & TREATMENT Ryzumvi Results Test Name Date and Time Measure Units Reference Range Abnormal Flag Status Commen ts Panel Description: [id number] Final Image Zeiss Result 1 Panel Description: [id number] Final Image Zeiss Result 2 Advance Directives Directive Yes / No Effective Date File Name No Information Encounters Encounter Description Practice Location Reason(s) For Visit Diagnoses Date Provider Providers Copied on Encounter [facility], [address] [place] [address], [id number], [place] tel:[phone] [facility] Double Vision (chief complaint) Dry eye (chief complaint) Salzmann nodular degeneration of cornea of left eyeDiplopiaPse udophakia of both eyesMeibomian gland dysfunction left eye, upper and lower eyelidsSquamou s blepharitis right eye, upper and lower eyelidsMeibomi an gland dysfunction right eye, upper and lower eyelidsKeratoc onjunctivitis sicca, not specified as Sjogren's, bilateralPCO (posterior capsular opacification) , bilateralSquam ous blepharitis left eye, upper and lower eyelidsPosteri or vitreous detachment of both eyes 5 Daisy Montanez. [address] [place] [address], [address], [place], [place], [id number], [place]. tel:[phone] [facility], [address] [place] [address] [address], [place], [place], [id number], [place] tel:[phone] [facility] PCO (posterior capsular opacification) , bilateralKerat oconjunctiviti s sicca, not specified as Sjogren's, bilateralSquam ous blepharitis right eye, upper and lower eyelidsSquamou s blepharitis left eye, upper and lower eyelidsMeibomi an gland dysfunction right eye, upper and lower eyelidsMeibomi an gland dysfunction left eye, upper and lower eyelidsDiplopi aSalzmann nodular degeneration of cornea of left eyePseudophaki a of both eyes Daisy Montanez. [address] [facility], [address], [place], [place], [id number], [place]. tel:[phone] Family History Family Member Type Diagnosis Age At Onset Problem Family history o f Family history: Cataract (situation)Family history of heart failure (situation) Payers Payer name Insurance type Covered democrat ID Authoriza tion(s) [place] MB [id number] [facility] [id number] Social History Type Description Quantity Date Captured Comments Alcohol Use Details less than 1 drink per day Caffeine Use Details Unknown Tobacco Use Status Current non-smoker Smoking Status Never smoker Non-Smoking Tobacco Use Details : No Details Available : No Details Available Sex Female Chief Complaint And Reason For Visit From encounter dated '12/19/2024 09:15'. Double Vision (chief complaint). Description: The 74 year old patient presents for evaluation of Double Vision in the left eye. Pt states notices double vision and has to blink to clear it up. Dry eye (chief complaint). Description: The patient is present for evaluation of Dry eye in the right eye and left eye. It occurs all the time. It affects OU. The symptom is constant. Pt states eyes are dry pt is using [place] BID -TID OU. Reason For Referral Reason For Referral No Information History Of Present Illness Encounter Date Complaint History Of Prese nt Illness Double Vision The 74 year old patient presents for evaluation of Double Vision in the left eye. Pt states notices double vision and has to blink to clear it up. Dry eye The patient is p resent for evaluation of Dry eye in the right eye and left eye. It occurs all the time. It affects OU. The symptom is constant. Pt states eyes are dry pt is using [place] BID -TID OU. 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 Impression/Plan Related to Diplo felton Impression/Plan Related to Pseud ophakia of both eyes Impression/Plan Related to Meibo ciaran gland dysfunction left eye, upper and lower eyelids Impression/Plan Related to Squam ous blepharitis right eye, upper and lower eyelids Impression/Plan Related to Meibo ciaran gland dysfunction right eye, upper and lower eyelids Impression/Plan Related to Kerat oconjunctivitis sicca, not specified as Sjogren's, bilateral Impression/Plan Related to PCO ( posterior capsular opacification), bilateral Impression/Plan Related to Squam ous blepharitis left eye, upper and lower eyelids Impression/Plan Related to Poste rior vitreous detachment of both eyes Impression/Plan Related to PCO ( posterior capsular opacification), bilateral Impression/Plan Related to Kerat oconjunctivitis sicca, not specified as Sjogren's, bilateral Impression/Plan Related to Squam ous blepharitis right eye, upper and lower eyelids Impression/Plan Related to Squam ous blepharitis left eye, upper and lower eyelids Impression/Plan Related to Meibo ciaran gland dysfunction right eye, upper and lower eyelids Impression/Plan Related to Meibo ciaran gland dysfunction left eye, upper and lower eyelids Impression/Plan Related to Diplo felton Impression/Plan Related to 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 assessment Diplopia impression Diplopia: H53.2. assessment Pseudophakia of both eyes impression Pseudophakia of both eyes: Z96.1 . assessment Meibomian gland dysfunction left eye, upper and lower eyelids impression Meibomian gland dysf unction left eye, upper and lower eyelids: H02.88B. 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 assessment Meibomian gland dysfunction righ t eye, upper and lower eyelids impression Meibomian gland dysf unction right eye, upper and lower eyelids: H02.88A. assessment Keratoconjunctivitis sicca, not specified as Sjogren's, bilateral impression Keratoconjunctivitis sicca, not specified as Sjogren's, bilateral: H16.223. assessment PCO (posterior capsular opacific ation), bilateral impression PCO (posterior capsular opacific ation), bilateral: H26.493. assessment Squamous blepharitis left eye, u pper and lower eyelids impression Squamous blepharitis left eye, upper and lower eyelids: H01.02B. assessment Posterior vitreous detachment of both eyes impression Posterior vitreous detachment of both eyes: H43.813 Patient Care Teams Name Effective Dates (start - stop) Status Members No Information
--- NOTE | ~2025-04-04 | MM_ITS ---
EXAMINATION: MM screening aishwarya BI w dionne HISTORY: Screening TECHNIQUE: Craniocaudal and mediolateral oblique 3-D tomosynthesis images were obtained and synthetic 2-D images were generated. CAD analysis was submitted and interpreted. COMPARISON: Mammogram 03/04/2021 BREAST PARENCHYMAL COMPOSITION: There are scattered areas of fibroglandular density. FINDINGS: There is no evidence of suspicious mass, calcification, or architectural distortion to suggest malignancy. There has been no suspicious interval change. IMPRESSION: 1. No mammographic evidence of malignancy. Recommend routine screening mammography in one year. BI-RADS Category 2: Benign finding(s) Reviewed, dictated and finalized at location Q. IMPRESSION: 1. No mammographic evidence of malignancy. Recommend routine screening mammogra phy in one year. BI-RADS Category 2: Benign finding(s)
--- OUTSIDE RECORDS SUMMARY | 2025-04-04 09:25 | XMS_ITS | Clinical Summary ---
Author Organization [facility] Address [address] [place] [address] Care Team Providers Care Senior Medical Director Name Role Phone MeghanAmanuelRickzachary Gray DO Primary Care Provider Source Comments [facility],non-owned Affiliates and Associated Physician Practices is amultiple site organization consisting of ambulatory clinics and hospital sitesin [place], [place], [place] and [place]. This disclosure is being madepursuant to the Care Everywhere program and may not contain all information available regarding this patient. Last updated 18.[facility] Allergies No known active allergies Medications * [...] triamcinolone (NASACORT AQ) 55 MCG/ACT nasal inhaler Usk 2 Sprays into each nostril daily. 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 Gender Identity Not on file Sexual Orientation [...] Last Done Comments BONE DENSITY TESTING 1950 HEPATITIS C SCREENING 02/17/1967 DTAP/TDAP/TD VACCINES (1 - Tdap) 02/22/1968 PNEUMOCOCCAL VACCINE 50+ (1 of 1 - PCV) 1999 ZOSTER VACCINE (1 of 2) 1999 Respiratory Syncytial Virus (RSV) Vaccine Pt: or over 60 yrs (1 - 1-dose 75+ series) 02/22/2024 DEPRESSION SCREENING 07/20/2024 COVID-19 VACCINE (2023-2 5 season) 2025 INFLUENZA VACCINE (#1) 2025 HEPATITIS B VACCINE [...] age to complete this topic Insurance MEDICARE [facility] Advance Directives Documents on File Type Date Recorded 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 [address] [facility] [address] [place] [address] PCP - General 06/01/18
== END 2025-04-04 08:33 | disposition home or self-care (01) ==
LOC: ANHFOHIMG 08:33
PROVIDERS: PCP Internal Medicine; Visit Provider Obstetrics & Gynecology Gynecology
DX: Z12.31 Encounter for screening mammogram for malignant neoplasm of breast (principal)
CPT/HCPCS: 77063; 77067

== ENCOUNTER 2025-04-20 13:30 | Outpatient (RCR) | payer MEDICARE, BC, SELFPAY ==
--- NOTE | 2025-02-20 17:02 | OPREHPOC ---
Outpatient Therapy Plan of Care This is a Multidisciplinary Plan of Care that may contain components documented by all disciplines (PT, OT, and ST.) PT Problem 1 PT Problem #1 Knowledge Deficit PT Goal 1 Goal / Goal Update [place] with HEP Target Visit 4 PT Goal 2 Goal / Goal Update Report no pain greater than 1/10 for 2 consecutive weeks Target Visit 8 PT Problem 2 PT Problem #2 Impaired Range of Motion PT Goal 1 Goal / Goal Update 1. Achieve 0 degrees terminal knee extension 2. Improve L knee flexion ROM to 125 degrees Target Visit 8 PT Problem 3 PT Problem #3 Impaired Strength PT Goal 1 Goal / Goal Update 1. Achieve 5/5 left knee strength for full functional stability Target Visit 8
--- NOTE | 2025-02-20 17:02 | PTOPEVAL1 ---
Assessment and note entered by Neo Jean Baptiste, PT Evaluation Information Assessment Status Evaluation Diagnosis S/P L TKA ICD-10 Condition Codes (PT) Pain in left knee M25.562 Onset 02/16/25 Subjective Information Reports that she has been having a lot of pain in the left thigh. Reports a lot of bruising. Sitting has been very painful. She has been struggling getting around and has been using the walker heavily. She has no new concerns outside of all of her bruising. She does not like taking the pain medication. Reported Pain Level Pain Score 1: Self Report Assessment PT Clinical Summary Patient presents with signs and symptoms consistent with post operative total knee arthroplasty. Patient demonstrates edema, weakness , loss of ROM, and gait deficits. She will benefit form skilled therapy to address these deficits for full functional presybeterian. Plan of Care Interventions Hot Pack/Cold Pack,Manual Therapy,Neuro Re- education,Therapeutic Activities,Therapeutic Exercise PT Services Indicated Yes Treatment Frequency and 2x/week x 8 visits Duration These treatments will address the objective and functional deficits as defined above. The patient will be advanced safely and appropriately in order for the patient to progress towards his/her prior level of function. Additional exercises will be introduced and as well as a comprehensive home exercise program upon discharge, if needed, ?to ensure carryover of functional gains achieved in the clinic. This treatment plan has been reviewed and agreement upon by the patient.
--- NOTE | 2025-03-16 09:57 | OPREHPOC ---
Outpatient Therapy Plan of Care This is a Multidisciplinary Plan of Care that may contain components documented by all disciplines (PT, OT, and ST.) PT Problem 1 PT Problem #1 Knowledge Deficit PT Goal 1 Goal / Goal Update [place] with HEP Target Visit 4 Progress Met PT Goal 2 Goal / Goal Update Report no pain greater than 1/10 for 2 consecutive weeks 03/16/25: Pain shifted to lateral L hi[ Target Visit 16 Progress Partially Met PT Problem 2 PT Problem #2 Impaired Range of Motion PT Goal 1 Goal / Goal Update 1. Achieve 0 degrees terminal knee extension 2. Improve L knee flexion ROM to 125 degrees Target Visit 8 Progress Met PT Problem 3 PT Problem #3 Impaired Strength PT Goal 1 Goal / Goal Update 1. Achieve 5/5 left knee strength for full functional stability 03/16/25: Weakness in extension Target Visit 16 Progress Partially Met PT Goal 2 Goal / Goal Update 1. Improve lex hip abduction strength to 4/5 to improve pelvic stability with ambulation Target Visit 16 PT Problem 4 PT Problem #4 Impaired Gait PT Goal 1 Goal / Goal Update 1. Ambulate with even stride length bilaterally without use of AD Target Visit 16
--- NOTE | 2025-03-16 09:57 | PTOPPROG ---
Assessment and note entered by Neo Jean Baptiste, PT Evaluation Information Assessment Status Progress Diagnosis S/P L TKA ICD-10 Condition Codes (PT) Pain in left knee M25.562 Onset 02/16/25 Subjective Information Reports that overall she is doing well. She does have a lot of pain in the left hip with clicking. She feels she has been favoring her left hip. She has been using a cane to offload her hip. Feels her exercises are going well to this point. She is back to driving. Assessment PT Clinical Summary Patient has seen substantial improvement in knee ROM. She is still showing gait deficits, weakness, and poor hip stability with an apparent secondary diagnosis of trochanteric bursitis on the left hip. Will continue to benefit form skilled therapy to address these deficits to maximize function and normalize gait pattern following second TKA. Plan of Care Interventions Hot Pack/Cold Pack,Manual Therapy,Neuro Re- education,Therapeutic Activities,Therapeutic Exercise PT Services Indicated Yes Treatment Frequency and 2x/week for 8 visits Duration These treatments will address the objective and functional deficits as defined above. The patient will be advanced safely and appropriately in order for the patient to progress towards his/her prior level of function. Additional exercises will be introduced and as well as a comprehensive home exercise program upon discharge, if needed, ?to ensure carryover of functional gains achieved in the clinic. This treatment plan has been reviewed and agreement upon by the patient.
--- NOTE | 2025-03-30 17:30 | PCPTNOTE ---
Patient cancelled today's session secondary to car trouble.
--- NOTE | 2025-04-20 15:00 | PTOPDC ---
Assessment and note entered by Neo Jean Baptiste, PT Evaluation Information Assessment Status Discharge Diagnosis S/P L TKA ICD-10 Condition Codes (PT) Pain in left knee M25.562 Onset 02/16/25 Subjective Information Reports that overall she feels she is making improvement. Knee has been feeling great. Still having some trouble with the back pain on the left side. She has been under adult live in caregiver for her back. Reported Pain Level Pain Score 0: Self Report Assessment PT Clinical Summary Patient has met all goals for therapy and is suitable for discharge to [facility] at this time. Patient and son both educated in continuation of home care. Plan of Care PT Services Indicated Yes
== END 2025-04-20 17:32 | disposition home or self-care (01) ==
LOC: ANHPT 13:30
PROVIDERS: PCP Internal Medicine; Visit Provider Orthopaedic Surgery
DX: Z47.1 Aftercare following joint replacement surgery (principal); M17.12 Unilateral primary osteoarthritis, left knee; Z96.652 Presence of left artificial knee joint
CPT/HCPCS: 97110; 97112; 97116; 97140; 97161; 97530

== ENCOUNTER 2025-06-07 14:53 | Outpatient (CLI) | payer MEDICARE, BC, SELFPAY ==
--- OUTSIDE RECORDS SUMMARY | 2007-04-06 10:18 | XMS_ITS | Continuity of Care Document ---
Author Organization [facility] Address [address] [place] [address] Phone Care Team Providers Care Bicycle Ii Assembler Name Role Phone Rodrigues OD, Aidan Unavailable Unavailable Procedures Procedure Date No Charge Contact Lens Check No Charge Contact Lens Check No Charge Contact Lens Check CL Replacement - Vistakon Disp W/BW Soft Tax - Medical Eye Exam & Treatment Refraction Advance Directives Directive Yes / No Effective Date File Name No Information Encounters Encounter Description Practice Location Reason(s) For Visit Diagnoses Date Provider Providers Copied on Encounter [facility], [address] [place] [address] [address], [place], [place], [address], tel:[phone] [facility] No Information Sep-1 8-200 7 Rodrigues OD Aidan. [address], [place], [place], [facility], [place]. tel:[phone] [facility], [address] [place] [address] [address], [place], [place], [address], [place] tel:[phone] [facility] No Information Sep-0 6-200 7 Rodrigues OD Aidan. [address], [place], [place], [facility], [place]. tel:[phone] [facility], [address] [place] [address] [address], [place], [place], [address], [place] tel:[phone] [facility] No Information 0-200 7 Rodrigues OD Aidan. [address] , [address], [place], [address], [place]. tel:[phone] [facility], [address], [place], [place], [address], [place] tel:[phone] [facility] No Information 6-200 7 Rodrigues OD Aidan. [address] [facility] , [address], [place], [address], [place]. tel:[phone] Family History Family Member Type Diagnosis Age At Onset No Information Payers Payer name Insurance type Covered democrat ID Pearl vicentejune(s) [place] [id number] Social History Type Description Quantity Date Captured Comments Sex Female Smoking Status No Information Chief Complaint And Reason For Visit No Information Reason For Referral Reason For Referral No Information History Of Present Illness Encounter Date Complaint History Of Prese nt Illness No Information Functional Status Date Functional Assessmen t No Information Instructions Date Instruction Additional Infor mation No Information Assessments Type Assessment Date No Information Patient Care Teams Name Effective Dates (start - stop) Status Members No Information
--- OUTSIDE RECORDS SUMMARY | 2007-04-06 10:18 | XMS_ITS | Continuity of Care Document ---
Author Organization [facility] Address [address] [place] [address] Phone Care Team Providers Care Co Founder And Ceo Name Role Phone Rodrigues OD, Aidan Unavailable [...] Diagnoses Date Provider Providers Copied on Encounter [facility], [address] [place] [address] [address], [place], [place], [address], tel:[phone] [facility] No Information Sep-1 8-200 7 Rodrigues OD Aidan. [address], [place], [place], [facility], [place]. tel:[phone] [facility], [address] [place] [address] [address], [place], [place], [address], [place] tel:[phone] [facility] No Information Sep-0 6-200 7 Rodrigues OD Aidan. [address], [address], [place], [facility], [place]. tel:[phone] [facility], [address] [place] [address] [address], [place], [place], [address], [place] tel:[phone] [facility] No Information 0-200 7 Rodrigues OD Aidan. [address] , [address], [place], [address], [place]. tel:[phone] [facility], [address], [place], [place], [address], [place] tel:[phone] [facility] No Information 6-200 7 Rodrigues OD Aidan. [address] [facility] , [address], [place], [address], [place]. tel:[phone] Family History Family Member Type Diagnosis Age At Onset No Information Payers Payer name Insurance type Covered constitution party ID Pearl vic[place] [id number] Social History Type Description Quantity Date Captured [...]
--- OUTSIDE RECORDS SUMMARY | 2007-04-06 10:18 | XMS_ITS | Continuity of Care Document ---
Author Organization [facility] Address [address] [place] [address] Phone Care Team Providers Care Operations Project Manager Name Role Phone Rodrigues OD, Aidan Unavailable [...] Diagnoses Date Provider Providers Copied on Encounter [facility], [address] [place] [address] [address], [place], [place], [address], tel:[phone] [facility] No Information Sep-1 8-200 7 Rodrigues OD Aidan. [address], [place], [place], [facility], [place]. tel:[phone] [facility], [address] [place] [address] [address], [place], [place], [address], [place] tel:[phone] [facility] No Information Sep-0 6-200 7 Rodrigues OD Aidan. [address], [address], [place], [facility], [place]. tel:[phone] [facility], [address] [place] [address] [address], [place], [place], [address], [place] tel:[phone] [facility] No Information 0-200 7 Rodrigues OD Aidan. [address] , [address], [place], [address], [place]. tel:[phone] [facility], [address], [place], [place], [address], [place] tel:[phone] [facility] No Information 6-200 7 Rodrigues OD Aidan. [address] [facility] , [address], [place], [address], [place]. tel:[phone] Family History Family Member Type Diagnosis Age At Onset No Information Payers Payer name Insurance type Covered republican ID Pearl vicente[place] [id number] Social History Type Description Quantity Date Captured [...]
--- OUTSIDE RECORDS SUMMARY | 2007-04-06 10:18 | XMS_ITS | Continuity of Care Document ---
Author Organization [facility] Address [address] [place] [address] Phone Care Team Providers Care [place] Representative Name Role Phone Rodrigues OD, Aidan Unavailable [...] Diagnoses Date Provider Providers Copied on Encounter [facility], [address] [place] [address] [address], [place], [place], [address], tel:[phone] [facility] No Information Sep-1 8-200 7 Rodrigues OD Aidan. [address] , [address], [place], [place], [facility], [place]. tel:[phone] [facility], [address] [place] [address] [address], [place], [place], [address], [place] tel:[phone] [facility] No Information Sep-0 6-200 7 Rodrigues OD Aidan. [address], [address], [place], [facility], [place]. tel:[phone] [facility], [address] [place] [address] [address], [place], [place], [address], [place] tel:[phone] [facility] No Information 0-200 7 Rodrigues OD Aidan. [address] , [address], [place], [address], [place]. tel:[phone] [facility], [address], [place], [place], [address], [place] tel:[phone] [facility] No Information 6-200 7 Rodrigues OD Aidan. [address] [facility] , [address], [place], [address], [place]. tel:[phone] Family History Family Member Type Diagnosis Age At Onset No Information Payers Payer name Insurance type Covered green party ID Pearl vicentej[place] [id number] Social History Type Description Quantity Date Captured [...]
--- OUTSIDE RECORDS SUMMARY | 2007-04-06 10:18 | XMS_ITS | Continuity of Care Document ---
Author Organization [facility] Address [address] [place] [address] Phone Care Team Providers Care Associate Financial Planner Name Role Phone Rodrigues OD, Aidan Unavailable [...] Diagnoses Date Provider Providers Copied on Encounter [facility], [address] [place] [address] [address], [place], [place], [address], tel:[phone] [facility] No Information Sep-1 8-200 7 Rodrigues OD Aidan. [address], [place], [facility], [place]. tel:[phone] [facility], [address] [place] [address] [address], [place], [place], [address], [place] tel:[phone] [facility] No Information Sep-0 6-200 7 Rodrigues OD Aidan. [address], [address], [place], [facility], [place]. tel:[phone] [facility], [address] [place] [address] [address], [place], [place], [address], [place] tel:[phone] [facility] No Information 0-200 7 Rodrigues OD Aidan. [address] , [address], [place], [address], [place]. tel:[phone] [facility], [address], [place], [place], [address], [place] tel:[phone] [facility] No Information 6-200 7 Rodrigues OD Aidan. [address] [facility] , [address], [place], [address], [place]. tel:[phone] Family History Family Member Type Diagnosis Age At Onset No Information Payers Payer name Insurance type Covered republican ID Pearl vicente[place] [id number] Social History Type Description Quantity Date Captured [...]
--- OUTSIDE RECORDS SUMMARY | 2007-04-06 10:18 | XMS_ITS | Continuity of Care Document ---
Author Organization [facility] Address [address] [place] [address] Phone Care Team Providers Care Outboard Motor Assembler Name Role Phone Rodrigues OD, Aidan [...] Diagnoses Date Provider Providers Copied on Encounter [facility], [address] [place] [address] [address], [place], [place], [address], tel:[phone] [facility] No Information Sep-1 8-200 7 Rodrigues OD Aidan. [address] , [address], [place], [place], [facility], [place]. tel:[phone] [facility], [address] [place] [address] [address], [place], [place], [address], [place] tel:[phone] [facility] No Information Sep-0 6-200 7 Rodrigues OD Aidan. [address], [address], [place], [facility], [place]. tel:[phone] [facility], [address] [place] [address] [address], [place], [place], [address], [place] tel:[phone] [facility] No Information 0-200 7 Rodrigues OD Aidan. [address] , [address], [place], [address], [place]. tel:[phone] [facility], [address], [place], [place], [address], [place] tel:[phone] [facility] No Information 6-200 7 Rodrigues OD Aidan. [address] [facility] , [address], [place], [address], [place]. tel:[phone] Family History Family Member Type Diagnosis Age At Onset No Information Payers Payer name Insurance type Covered green party ID Pearl vicente[place] [id number] Social History Type Description Quantity Date Captured [...]
--- OUTSIDE RECORDS SUMMARY | 2007-04-06 10:18 | XMS_ITS | Continuity of Care Document ---
Author Organization [facility] Address [address] [place] [address] Phone Care Team Providers Care Supervisor [employer] Name Role Phone Rodrigues OD, Aidan Unavailable [...] Diagnoses Date Provider Providers Copied on Encounter [facility], [address] [place] [address] [address], [place], [place], [address], tel:[phone] [facility] No Information Sep-1 8-200 7 Rodrigues OD Aidan. [address] , [address], [place], [place], [facility], [place]. tel:[phone] [facility], [address] [place] [address] [address], [place], [place], [address], [place] tel:[phone] [facility] No Information Sep-0 6-200 7 Rodrigues OD Aidan. [address], [address], [place], [facility], [place]. tel:[phone] [facility], [address] [place] [address] [address], [place], [place], [address], [place] tel:[phone] [facility] No Information 0-200 7 Rodrigues OD Aidan. [address] , [address], [place], [address], [place]. tel:[phone] [facility], [address], [place], [place], [address], [place] tel:[phone] [facility] No Information 6-200 7 Rodrigues OD Aidan. [address] [facility] , [address], [place], [address], [place]. tel:[phone] Family History Family Member Type Diagnosis Age At Onset No Information Payers Payer name Insurance type Covered republican ID Pearl vicentejune([place]) [place] [id number] Social History Type Description Quantity Date Captured [...]
--- OUTSIDE RECORDS SUMMARY | 2007-04-06 10:18 | XMS_ITS | Continuity of Care Document ---
Author Organization [facility] Address [address] [place] [address] Phone Care Team Providers Care Delivery Man Name Role Phone Rodrigues OD, Aidan Unavailable [...] Diagnoses Date Provider Providers Copied on Encounter [facility], [address] [place] [address] [address], [place], [place], [address], tel:[phone] [facility] No Information Sep-1 8-200 7 Rodriguse OD Aidan. [address] , [address], [place], [facility], [place]. tel:[phone] [facility], [address] [place] [address] [address], [place], [place], [address], [place] tel:[phone] [facility] No Information Sep-0 6-200 7 Rodrigues OD Aidan. [address], [address], [place], [facility], [place]. tel:[phone] [facility], [address] [place] [address] [address], [place], [place], [address], [place] tel:[phone] [facility] No Information 0-200 7 Rodrigues OD Aidan. [address] , [address], [place], [address], [place]. tel:[phone] [facility], [address], [place], [place], [address], [place] tel:[phone] [facility] No Information 6-200 7 Rodrigues OD Aidan. [address] [facility] , [address], [place], [address], [place]. tel:[phone] Family History Family Member Type Diagnosis Age At Onset No Information Payers Payer name Insurance type Covered alliance party ID Pearl vicente[place] [id number] Social History Type Description Quantity Date Captured [...]
--- OUTSIDE RECORDS SUMMARY | 2007-04-06 10:18 | XMS_ITS | Continuity of Care Document ---
Author Organization [facility] Address [address] [place] [address] Phone Care Team Providers Care Flake Miller Helper Name Role Phone Rodrigues OD, Aiadn Unavailable Unavailable Procedures Procedure Date No Charge Contact Lens Check No Charge Contact Lens Check No Charge Contact Lens Check CL Replacement - Vistakon Disp W/BW Soft Tax - Medical Eye Exam & Treatment Refraction Advance Directives Directive Yes / No Effective Date File Name No Information Encounters Encounter Description Practice Location Reason(s) For Visit Diagnoses Date Provider Providers Copied on Encounter [facility], [address] [place] [address] [address], [place], [place], [address], tel:[phone] [facility] No Information Sep-1 8-200 7 Rodrigues OD Aidan. [address], [place], [place], [facility], [place]. tel:[phone] [facility], [address] [place] [address] [address], [place], [place], [address], [place] tel:[phone] [facility] No Information Sep-0 6-200 7 Rodrigues OD Aidan. [address], [address], [place], [facility], [place]. tel:[phone] [facility], [address] [place] [address] [address], [place], [place], [address], [place] tel:[phone] [facility] No Information 0-200 7 Rodrigues OD Aidan. [address] , [address], [place], [address], [place]. tel:[phone] [facility], [address], [place], [place], [address], [place] tel:[phone] [facility] No Information 6-200 7 Rodrigues OD Aidan. [address] [facility] , [address], [place], [address], [place]. tel:[phone] Family History Family Member Type Diagnosis Age At Onset No Information Payers Payer name Insurance type Covered alliance party ID Pearl vicente[place] [id number] Social History Type Description Quantity Date Captured [...]
--- OUTSIDE RECORDS SUMMARY | 2007-04-06 10:18 | XMS_ITS | Continuity of Care Document ---
Author Organization [facility] Address [address] [place] [address] Phone Care Team Providers Care Mechanical Engineer Name Role Phone Rodrigues OD, Aidan Unavailable [...] Diagnoses Date Provider Providers Copied on Encounter [facility], [address] [place] [address] [address], [place], [place], [address], tel:[phone] [facility] No Information Sep-1 8-200 7 Rodrigues OD Aidan. [address], [place], [place], [facility], [place]. tel:[phone] [facility], [address] [place] [address] [address], [place], [place], [address], [place] tel:[phone] [facility] No Information Sep-0 6-200 7 Rodrigues OD Aidan. [address], [address], [place], [facility], [place]. tel:[phone] [facility], [address] [place] [address] [address], [place], [place], [address], [place] tel:[phone] [facility] No Information 0-200 7 Rodrigues OD Aidan. [address] , [address], [place], [address], [place]. tel:[phone] [facility], [address], [place], [place], [address], [place] tel:[phone] [facility] No Information 6-200 7 Rodrigues OD Aidan. [address] [facility] , [address], [place], [address], [place]. tel:[phone] Family History Family Member Type Diagnosis Age At Onset No Information Payers Payer name Insurance type Covered democrat ID Pearl vicentej[place]) [place] [id number] Social History Type Description Quantity Date Captured [...]
--- OUTSIDE RECORDS SUMMARY | 2007-04-06 10:18 | XMS_ITS | Continuity of Care Document ---
Author Organization [facility] Address [address] [place] [address] Phone Care Team Providers Care Undertaker Assistant Name Role Phone Rodrigues OD, Aidan Unavailable [...] Diagnoses Date Provider Providers Copied on Encounter [facility], [address] [place] [address] [address], [place], [place], [address], tel:[phone] [facility] No Information Sep-1 8-200 7 Rodrigues OD Aidan. [address], [place], [facility], [place]. tel:[phone] [facility], [address] [place] [address] [address], [place], [place], [address], [place] tel:[phone] [facility] No Information Sep-0 6-200 7 Rodrigues OD Aidan. [address], [address], [place], [facility], [place]. tel:[phone] [facility], [address] [place] [address] [address], [place], [place], [address], [place] tel:[phone] [facility] No Information 0-200 7 Rodrigues OD Aidan. [address] , [address], [place], [address], [place]. tel:[phone] [facility], [address], [place], [place], [address], [place] tel:[phone] [facility] No Information 6-200 7 Rodrigues OD Aidan. [address] [facility] , [address], [place], [address], [place]. tel:[phone] Family History Family Member Type Diagnosis Age At Onset No Information Payers Payer name Insurance type Covered green party ID Pearl vicentej[place]) [place] [id number] Social History Type Description Quantity Date Captured [...]
--- OUTSIDE RECORDS SUMMARY | 2024-12-19 04:15 | XMS_ITS | Continuity of Care Document ---
Author Organization [facility] Address [address] [facility] [address] [place] [address] Phone Care Team Providers Care Freight Checker Name Role Phone Tarik Villa OD Unavailable [...] Abnormal Flag Status Commen ts Panel Description: [id number] Final Image Zeiss Result 1 Panel Description: [id number] Final Image Zeiss Result 2 Advance Directives Directive Yes / No Effective Date File Name No Information Encounters Encounter Description Practice Location Reason(s) For Visit Diagnoses Date Provider Providers Copied on Encounter [facility], [address] [place] [address], [id number], [place] tel:[phone] [facility] Double Vision (chief complaint) Dry eye (chief [...] detachment of both eyes 5 Daisy Montanez. [address] [place] [address], [address], [place], [place], [id number], [place]. tel:[phone] [facility], [address] [place] [address] [address], [place], [place], [id number], [place] tel:[phone] [facility] PCO (posterior capsular opacification) , bilateralKerat oconjunctiviti s sicca, not specified as Sjogren's, bilateralSquam ous blepharitis right eye, upper and lower eyelidsSquamou s blepharitis left eye, upper and lower eyelidsMeibomi an gland dysfunction right eye, upper and lower eyelidsMeibomi an gland dysfunction left eye, upper and lower eyelidsDiplopi aSalzmann nodular degeneration of cornea of left eyePseudophaki a of both eyes Daisy Montanez. [address] [facility], [address], [place], [place], [id number], [place]. tel:[phone] Family History Family Member Type Diagnosis Age At Onset Problem Family history o f Family history: Cataract (situation)Family history of heart failure (situation) Payers Payer name Insurance type Covered libertarian ID Authoriza tion(s) [place] MB [id number] [facility] [id number] Social History Type Description Quantity Date Captured Comments Alcohol Use Details less than 1 drink per day Caffeine Use Details Unknown Tobacco Use Status Current non-smoker Smoking Status Never smoker Non-Smoking Tobacco Use Details : No Details Available : No Details Available Sex Female Chief Complaint And Reason For Visit From encounter dated '12/19/2024 10:15'. Double Vision (chief complaint). Description: The 74 [...] states eyes are dry pt is using [place] BID -TID OU. Reason For Referral Reason [...] states eyes are dry pt is using [place] BID -TID OU. Functional Status Date Functional [...]
--- OUTSIDE RECORDS SUMMARY | 2024-12-19 04:15 | XMS_ITS | Continuity of Care Document ---
Author Organization [facility] Address [address] [facility] [address] [place] [address] Phone Care Team Providers Care Meal Packer Name Role Phone Tarik Villa OD Unavailable [...] Abnormal Flag Status Commen ts Panel Description: [id number] Final Image Zeiss Result 1 Panel Description: [id number] Final Image Zeiss Result 2 Advance Directives Directive Yes / No Effective Date File Name No Information Encounters Encounter Description Practice Location Reason(s) For Visit Diagnoses Date Provider Providers Copied on Encounter [facility], [address] [place] [address], [id number], [place] tel:[phone] [facility] Double Vision (chief complaint) Dry eye [...] detachment of both eyes 5 Daisy Montanez. [address] [place] [address], [address], [place], [place], [id number], [place]. tel:[phone] [facility], [address] [place] [address] 201, [place], [place], [id number], [place] tel:[phone] [facility] PCO (posterior capsular opacification) , bilateralKerat oconjunctiviti s sicca, not specified as Sjogren's, bilateralSquam ous blepharitis right eye, upper and lower eyelidsSquamou s blepharitis left eye, upper and lower eyelidsMeibomi an gland dysfunction right eye, upper and lower eyelidsMeibomi an gland dysfunction left eye, upper and lower eyelidsDiplopi aSalzmann nodular degeneration of cornea of left eyePseudophaki a of both eyes Daisy Montanez. [address] [facility], [address], [place], [place], [id number], [place]. tel:[phone] Family History Family Member Type Diagnosis Age At Onset Problem Family history o f Family history: Cataract (situation)Family history of heart failure (situation) Payers Payer name Insurance type Covered alliance party ID Authoriza tion(s) [place] MB [id number] [facility] [id number] Social History Type Description Quantity Date Captured [...] states eyes are dry pt is using [place] BID -TID OU. Reason For Referral Reason [...] states eyes are dry pt is using [place] BID -TID OU. Functional Status Date Functional [...] and lower eyelids Impression/Plan Related to Meibo ciraan gland dysfunction right eye, upper and lower [...]
--- OUTSIDE RECORDS SUMMARY | 2024-12-19 04:15 | XMS_ITS | Continuity of Care Document ---
Author [facility] Address [address] [facility] [address] [place] [address] Phone Care Team Providers Care School Resource Officer Name Role Phone Tarik Villa OD Unavailable [...] Abnormal Flag Status Commen ts Panel Description: [id number] Final Image Zeiss Result 1 Panel Description: [id number] Final Image Zeiss Result 2 Advance Directives Directive Yes / No Effective Date File Name No Information Encounters Encounter Description Practice Location Reason(s) For Visit Diagnoses Date Provider Providers Copied on Encounter [facility], [address] [place] [address], [id number], [place] tel:[phone] [facility] Double Vision (chief complaint) Dry eye [...] detachment of both eyes 5 Daisy Montanez. [address] [place] [address], [address], [place], [place], [id number], [place]. tel:[phone] [facility], [address] [place] [address] 201, [place], [place], [id number], [place] tel:[phone] [facility] PCO (posterior capsular opacification) , [...] eyePseudophaki a of both eyes Daisy Montanez. [address] [facility], [address], [place], [place], [id number], [place]. tel:[phone] Family History Family Member Type Diagnosis Age At Onset Problem Family history o f Family history: Cataract (situation)Family history of heart failure (situation) Payers Payer name Insurance type Covered alliance party ID Authoriza tion(s) [place] MB [id number] [facility] [id number] Social History Type Description Quantity Date Captured [...] states eyes are dry pt is using [place] BID -TID OU. Reason For Referral Reason [...] states eyes are dry pt is using [place] BID -TID OU. Functional Status Date Functional [...]
--- OUTSIDE RECORDS SUMMARY | 2024-12-19 04:15 | XMS_ITS | Continuity of Care Document ---
Author Organization [facility] Address [address] [facility] [address] [place] [address] Phone Care Team Providers Care Paper Cutting Machine Operator Name Role Phone Tarik Villa OD Unavailable [...] Abnormal Flag Status Commen ts Panel Description: [id number] Final Image Zeiss Result 1 Panel Description: [id number] Final Image Zeiss Result 2 Advance Directives Directive Yes / No Effective Date File Name No Information Encounters Encounter Description Practice Location Reason(s) For Visit Diagnoses Date Provider Providers Copied on Encounter [facility], [address] [place] [address], [id number], [place] tel:[phone] [facility] Double [...] detachment of both eyes 5 Daisy Montanez. [address] [place] [address], [address], [place], [place], [address], [place]. tel:[phone] [facility], [address] [place] [address] 201, [place], [place], [id number], [place] tel:[phone] [facility] PCO (posterior capsular opacification) , bilateralKerat oconjunctiviti s sicca, not specified as Sjogren's, bilateralSquam ous blepharitis right eye, upper and lower eyelidsSquamou s blepharitis left eye, upper and lower eyelidsMeibomi an gland dysfunction right eye, upper and lower eyelidsMeibomi an gland dysfunction left eye, upper and lower eyelidsDiplopi aSalzmann nodular degeneration of cornea of left eyePseudophaki a of both eyes Daisy Montanez. [address] [facility], [address], [place], [place], [id number], [place]. tel:[phone] Family History Family Member Type Diagnosis Age At Onset Problem Family history o f Family history: Cataract (situation)Family history of heart failure (situation) Payers Payer name Insurance type Covered democrat ID Authoriza tion(s) [place] MB [id number] [facility] [id number] Social History Type Description Quantity Date Captured [...] states eyes are dry pt is using [place] BID -TID OU. Reason For Referral Reason [...] states eyes are dry pt is using [place] BID -TID OU. Functional Status Date Functional [...]
--- OUTSIDE RECORDS SUMMARY | 2024-12-19 04:15 | XMS_ITS | Continuity of Care Document ---
Author [facility] Address [address] [facility] 201 [place] [address] Phone Care Team Providers Care Toll Testboard Worker Name Role Phone Tarik Villa OD Unavailable [...] Abnormal Flag Status Commen ts Panel Description: [id number] Final Image Zeiss Result 1 Panel Description: [id number] Final Image Zeiss Result 2 Advance Directives Directive Yes / No Effective Date File Name No Information Encounters Encounter Description Practice Location Reason(s) For Visit Diagnoses Date Provider Providers Copied on Encounter [facility], [address] [place] [address], [id number], [place] tel:[phone] [facility] Double Vision (chief complaint) Dry eye [...] detachment of both eyes 5 Daisy Montanez. [address] [place] [address], [address], [place], [place], [id number], [place]. tel:[phone] [facility], [address] [place] [address] 201, [place], [place], [id number], [place] tel:[phone] [facility] PCO (posterior capsular opacification) , bilateralKerat oconjunctiviti s sicca, not specified as Sjogren's, bilateralSquam ous blepharitis right eye, upper and lower eyelidsSquamou s blepharitis left eye, upper and lower eyelidsMeibomi an gland dysfunction right eye, upper and lower eyelidsMeibomi an gland dysfunction left eye, upper and lower eyelidsDiplopi aSalzmann nodular degeneration of cornea of left eyePseudophaki a of both eyes Daisy Montanez. [address] [facility], [address], [place], [place], [id number], [place]. tel:[phone] Family History Family Member Type Diagnosis Age At Onset Problem Family history o f Family history: Cataract (situation)Family history of heart failure (situation) Payers Payer name Insurance type Covered green party ID Authoriza tion(s) [place] MB [id number] [facility] [id number] Social History Type Description Quantity Date Captured [...] states eyes are dry pt is using [place] BID -TID OU. Reason For Referral Reason [...] states eyes are dry pt is using [place] BID -TID OU. Functional Status Date Functional [...]
--- OUTSIDE RECORDS SUMMARY | 2024-12-19 04:15 | XMS_ITS | Continuity of Care Document ---
Author [facility] Address [address] [facility] [address] [place] [address] Phone Care Team Providers Care Tree Worker Name Role Phone Tarik Villa OD [...] Abnormal Flag Status Commen ts Panel Description: [id number] Final Image Zeiss Result 1 Panel Description: [id number] Final Image Zeiss Result 2 Advance Directives Directive Yes / No Effective Date File Name No Information Encounters Encounter Description Practice Location Reason(s) For Visit Diagnoses Date Provider Providers Copied on Encounter [facility], [address] [place] [address], [id number], [place] tel:[phone] [facility] Double Vision (chief complaint) Dry eye [...] detachment of both eyes 5 Daisy Montanez. [address] [place] [address], [address], [place], [place], [id number], [place]. tel:[phone] [facility], [address] [place] [address] 201, [place], [place], [id number], [place] tel:[phone] [facility] PCO (posterior capsular opacification) , bilateralKerat oconjunctiviti s sicca, not specified as Sjogren's, bilateralSquam ous blepharitis right eye, upper and lower eyelidsSquamou s blepharitis left eye, upper and lower eyelidsMeibomi an gland dysfunction right eye, upper and lower eyelidsMeibomi an gland dysfunction left eye, upper and lower eyelidsDiplopi aSalzmann nodular degeneration of cornea of left eyePseudophaki a of both eyes Daisy Montanez. [address] [facility], [address], [place], [place], [id number], [place]. tel:[phone] Family History Family Member Type Diagnosis Age At Onset Problem Family history o f Family history: Cataract (situation)Family history of heart failure (situation) Payers Payer name Insurance type Covered democrat ID Authoriza tion(s) [place] MB [id number] [facility] [id number] Social History Type Description Quantity Date Captured [...] states eyes are dry pt is using [place] BID -TID OU. Reason For Referral Reason [...] states eyes are dry pt is using [place] BID -TID OU. Functional Status Date Functional [...]
--- OUTSIDE RECORDS SUMMARY | 2024-12-19 04:15 | XMS_ITS | Continuity of Care Document ---
Author Organization [facility] Address [address] [facility] [address] [place] [address] Phone Care Team Providers Care Strategic Planning Specialist Name Role Phone Tarik Villa OD [...] Abnormal Flag Status Commen ts Panel Description: [id number] Final Image Zeiss Result 1 Panel Description: [id number] Final Image Zeiss Result 2 Advance Directives Directive Yes / No Effective Date File Name No Information Encounters Encounter Description Practice Location Reason(s) For Visit Diagnoses Date Provider Providers Copied on Encounter [facility], [address] [place] [address], [id number], [place] tel:[phone] [facility] Double Vision (chief complaint) Dry eye (chief [...] detachment of both eyes 5 Daisy Montanez. [address] [place] [address], [address], [place], [place], [id number], [place]. tel:[phone] [facility], [address] [place] [address] 201, [place], [place], [id number], [place] tel:[phone] [facility] PCO (posterior capsular opacification) , bilateralKerat oconjunctiviti s sicca, not specified as Sjogren's, bilateralSquam ous blepharitis right eye, upper and lower eyelidsSquamou s blepharitis left eye, upper and lower eyelidsMeibomi an gland dysfunction right eye, upper and lower eyelidsMeibomi an gland dysfunction left eye, upper and lower eyelidsDiplopi aSalzmann nodular degeneration of cornea of left eyePseudophaki a of both eyes Daisy Montanez. [address] [facility], [address], [place], [place], [id number], [place]. tel:[phone] Family History Family Member Type Diagnosis Age At Onset Problem Family history o f Family history: Cataract (situation)Family history of heart failure (situation) Payers Payer name Insurance type Covered republican ID Authoriza tion(s) [place] MB [id number] [facility] [id number] Social History Type Description Quantity Date Captured [...] states eyes are dry pt is using [place] BID -TID OU. Reason For Referral Reason [...] states eyes are dry pt is using [place] BID -TID OU. Functional Status Date Functional [...]
--- OUTSIDE RECORDS SUMMARY | 2024-12-19 04:15 | XMS_ITS | Continuity of Care Document ---
Author Organization [facility] Address [address] [facility] [address] [place] [address] Phone Care Team Providers Care House Visitor Name Role Phone Tarik Villa OD Unavailable [...] Abnormal Flag Status Commen ts Panel Description: [id number] Final Image Zeiss Result 1 Panel Description: [id number] Final Image Zeiss Result 2 Advance Directives Directive Yes / No Effective Date File Name No Information Encounters Encounter Description Practice Location Reason(s) For Visit Diagnoses Date Provider Providers Copied on Encounter [facility], [address] [place] [address], [id number], [place] tel:[phone] [facility] Double Vision (chief complaint) Dry eye (chief [...] detachment of both eyes 5 Daisy Montanez. [address] [place] [address], [address], [place], [place], [id number], [place]. tel:[phone] [facility], [address] [place] [address] 201, [place], [place], [id number], [place] tel:[phone] [facility] PCO (posterior capsular opacification) , bilateralKerat oconjunctiviti s sicca, not specified as Sjogren's, bilateralSquam ous blepharitis right eye, upper and lower eyelidsSquamou s blepharitis left eye, upper and lower eyelidsMeibomi an gland dysfunction right eye, upper and lower eyelidsMeibomi an gland dysfunction left eye, upper and lower eyelidsDiplopi aSalzmann nodular degeneration of cornea of left eyePseudophaki a of both eyes Daisy Montanez. [address] [facility], [address], [place], [place], [id number], [place]. tel:[phone] Family History Family Member Type Diagnosis Age At Onset Problem Family history o f Family history: Cataract (situation)Family history of heart failure (situation) Payers Payer name Insurance type Covered alliance party ID Authoriza tion(s) [place] MB [id number] [facility] [id number] Social History Type Description Quantity Date Captured [...] states eyes are dry pt is using [place] BID -TID OU. Reason For Referral Reason [...] states eyes are dry pt is using [place] BID -TID OU. Functional Status Date Functional [...]
--- OUTSIDE RECORDS SUMMARY | 2024-12-19 04:15 | XMS_ITS | Continuity of Care Document ---
Author Organization [facility] Address [address] [facility] 201 [place] [address] Phone Care Team Providers Care Supervisor Grips Name Role Phone Tarik Villa OD Unavailable [...] Abnormal Flag Status Commen ts Panel Description: [id number] Final Image Zeiss Result 1 Panel Description: [id number] Final Image Zeiss Result 2 Advance Directives Directive Yes / No Effective Date File Name No Information Encounters Encounter Description Practice Location Reason(s) For Visit Diagnoses Date Provider Providers Copied on Encounter [facility], [address] [place] [address], [id number], [place] tel:[phone] [facility] Double Vision (chief complaint) Dry [...] detachment of both eyes 5 Daisy Montanez. [address] [place] [address], [address], [place], [place], [id number], [place]. tel:[phone] [facility], [address] [place] [address] 201, [place], [place], [id number], [place] tel:[phone] [facility] PCO (posterior capsular opacification) , bilateralKerat oconjunctiviti s sicca, not specified as Sjogren's, bilateralSquam ous blepharitis right eye, upper and lower eyelidsSquamou s blepharitis left eye, upper and lower eyelidsMeibomi an gland dysfunction right eye, upper and lower eyelidsMeibomi an gland dysfunction left eye, upper and lower eyelidsDiplopi aSalzmann nodular degeneration of cornea of left eyePseudophaki a of both eyes Daisy Montanez. [address] [facility], [address], [place], [place], [id number], [place]. tel:[phone] Family History Family Member Type Diagnosis Age At Onset Problem Family history o f Family history: Cataract (situation)Family history of heart failure (situation) Payers Payer name Insurance type Covered republican ID Authoriza tion(s) [place] MB [id number] [facility] [id number] Social History Type Description Quantity Date Captured [...] states eyes are dry pt is using [place] BID -TID OU. Reason For Referral Reason [...] states eyes are dry pt is using [place] BID -TID OU. Functional Status Date Functional [...]
--- OUTSIDE RECORDS SUMMARY | 2024-12-19 04:15 | XMS_ITS | Continuity of Care Document ---
Author Organization [facility] Address [address] [facility] [address] [place] [address] Phone Care Team Providers Care Certified Adapted Physical Educator Name Role Phone Tarik Villa OD Unavailable [...] Abnormal Flag Status Commen ts Panel Description: [id number] Final Image Zeiss Result 1 Panel Description: [id number] Final Image Zeiss Result 2 Advance Directives Directive Yes / No Effective Date File Name No Information Encounters Encounter Description Practice Location Reason(s) For Visit Diagnoses Date Provider Providers Copied on Encounter [facility], [address] [place] [address], [id number], [place] tel:[phone] [facility] Double Vision (chief complaint) Dry eye (chief [...] detachment of both eyes 5 Daisy Montanez. [address] [place] [address], [address], [place], [place], [id number], [place]. tel:[phone] [facility], [address] [place] [address] 201, [place], [place], [id number], [place] tel:[phone] [facility] PCO (posterior capsular opacification) , [...] eyePseudophaki a of both eyes Daisy Montanez. [address] [facility], [address], [place], [place], [id number], [place]. tel:[phone] Family History Family Member Type Diagnosis Age At Onset Problem Family history o f Family history: Cataract (situation)Family history of heart failure (situation) Payers Payer name Insurance type Covered libertarian ID Authoriza tion(s) [place] MB [id number] [facility] [id number] Social History Type Description Quantity Date Captured [...] states eyes are dry pt is using [place] BID -TID OU. Reason For Referral Reason [...] states eyes are dry pt is using [place] BID -TID OU. Functional Status Date Functional [...]
--- OUTSIDE RECORDS SUMMARY | 2024-12-19 04:15 | XMS_ITS | Continuity of Care Document ---
Author [facility] Address [address] [facility] [address] [place] [address] Phone Care Team Providers Care Jig Inspector Name Role Phone Tarik Villa OD Unavailable [...] Abnormal Flag Status Commen ts Panel Description: [id number] Final Image Zeiss Result 1 Panel Description: [id number] Final Image Zeiss Result 2 Advance Directives Directive Yes / No Effective Date File Name No Information Encounters Encounter Description Practice Location Reason(s) For Visit Diagnoses Date Provider Providers Copied on Encounter [facility], [address] [place] [address], [id number], [place] tel:[phone] [facility] Double Vision (chief complaint) Dry eye [...] vitreous detachment of both eyes 5 Daisy Montaenz. [address] [place] [address], [address], [place], [place], [id number], [place]. tel:[phone] [facility], [address] [place] [address] 201, [place], [place], [id number], [place] tel:[phone] [facility] PCO (posterior capsular opacification) , bilateralKerat oconjunctiviti s sicca, not specified as Sjogren's, bilateralSquam ous blepharitis right eye, upper and lower eyelidsSquamou s blepharitis left eye, upper and lower eyelidsMeibomi an gland dysfunction right eye, upper and lower eyelidsMeibomi an gland dysfunction left eye, upper and lower eyelidsDiplopi aSalzmann nodular degeneration of cornea of left eyePseudophaki a of both eyes aDisy Montanez. [address] [facility], [address], [place], [place], [id number], [place]. tel:[phone] Family History Family Member Type Diagnosis Age At Onset Problem Family history o f Family history: Cataract (situation)Family history of heart failure (situation) Payers Payer name Insurance type Covered constitution party ID Authoriza tion(s) [place] MB [id number] [facility] [id number] Social History Type Description Quantity Date Captured [...] states eyes are dry pt is using [place] BID -TID OU. Reason For Referral Reason [...] states eyes are dry pt is using [place] BID -TID OU. Functional Status Date Functional [...]
--- NOTE | ~2025-06-07 | US_ITS ---
EXAMINATION: US venous doppler LE RT DATE: 06/07/2025 15:54 INDICATION: Edema, pain right lower extremity. TECHNIQUE: Grayscale ultrasound images without and with compression and Doppler ultrasound images of the right lower extremity veins were obtained. COMPARISON: Right knee x-ray dated 11/30/2024. FINDINGS: The visualized portions of right common femoral vein, profunda (deep) femoral vein, femoral vein, popliteal vein, peroneal veins, posterior tibial veins, and greater saphenous vein outflow are patent. Evidence of 2 x 1 cm size Guzman's cyst is noted in the right popliteal fossa. IMPRESSION: 1. No deep venous thrombosis. 2. Small Guzman's cyst in the right popliteal fossa, 2 x 1 cm in size. Reviewed, dictated and finalized at location T. GRAPH INSPECTOR
--- OUTSIDE RECORDS SUMMARY | 2025-06-07 23:00 | XMS_ITS | Clinical Summary ---
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 Gender Identity Not on file Sexual Orientation Not on file Plan of Treatment Health Maintenance Due Date Last Done Comments Hepatitis C 1968 Pneumococcal Vaccine: 50+ Years (1 of 1 - PCV) 1999 Annual Medicare Wellness Visit 2014 Dexa Scan (General) 2014 COVID-19 Vaccine ( season) 2025 04/18/2021, 07/31/2020, 07/10/2020 Influenza Adult (#1) 2025 04/06/2021, 05/29/2020, 05/12/2019, Additional history exists DTaP, Tdap and Td Vaccines (2 - Td or Tdap) 06/21/2031 06/21/2021 Zoster Vaccines Completed 08/23/2018, 06/12/2018 RSV Immunization or 60+ Years Completed 03/31/2023 Hepatitis A Vaccines Aged Out No long er eligible based on patient's age to complete this topic Meningococcal B Vaccine Aged Out No l onger eligible based on patient's age to complete this topic Meningococcal Vaccine Aged Out No jozef jeffery eligible based on patient's age to complete this topic RSV Immunizations Under 20 Months Aged Out No longer eligible based on patient's age to complete this topic Insurance MEDICARE [facility] Care Teams Livestock Farmer Relationship Specialty Start Date End Date Tay Enamorado MD [address] [place] [id number] PCP - General INTERNAL MEDICINE 06/15/24
== END 2025-06-07 14:54 | disposition home or self-care (01) ==
PROVIDERS: PCP Internal Medicine; Visit Provider Physician Assistant Surgical
DX: M71.21 Synovial cyst of popliteal space [Baker], right knee (principal)
CPT/HCPCS: 93971